=== PATIENT | male | born 1965 ===

== ENCOUNTER 2020-08-05 09:31 | Outpatient (REF) | payer OTHER, SELFPAY | END 2020-08-05 09:32 | disposition home or self-care (01) | LOC: HO.LAB 09:31 | PROVIDERS: Visit Provider Internal Medicine | DX: Z20.822 Contact with and (suspected) exposure to COVID-19 (principal) | CPT/HCPCS: 36415; C9803; U0003 ==

== ENCOUNTER 2020-08-28 09:43 | Outpatient (REF) | payer OTHER, SELFPAY ==
--- NOTE | ~2020-08-28 | XR_ITS ---
EXAMINATION: XR LUMBOSACRAL SPINE CLINICAL INFORMATION: Arthritis COMPARISON: Previous lumbar spine x-ray September 2016 and MRI October 2018 TECHNIQUE: Three views of the lumbosacral spine. FINDINGS: There is partial sacralization of L5 on the left with pseudoarticulation of the left L5 transverse process with the sacrum. Bone alignment is normal. No fracture or dislocation is seen. There is mild degenerative spondylosis at L2-L3 and L3-L4. Disc spaces are normal. There is lower lumbar spine facet arthritis. XR/XR lumbar spine 2-3V IMPRESSION: Partial sacralization of L5 on the left with pseudoarticulation between the left L5 transverse process and the sacrum. Mild degenerative spondylosis and facet arthritis.
[2020-08-28 11:11] LABS: MANUAL DIFF FLAG NO
[2020-08-28 11:25] LABS: Glucose Urine UA NEG (NEG); Leukocyte Esterase Urine NEG (NEG); Nitrite Urine NEG (NEG); PH 6.5 (5.0-8.0); Specific Gravity - Urine 1.025 (1.005-1.025); Urine Blood 3+ (NEG); Urine Ketones NEG (NEG); Urine Protein 1+ MG/DL (NEG-TRACE)
[2020-08-28 11:28] LABS: Appearance Urine CLOUDY; Color Urine YELLOW
[2020-08-28 11:34] LABS: Basophils Absolute Auto 0.1 X10*3/uL (0.0-0.2); Basophils Percent Auto 0.6 % (0-2); Eosinophils Absolute Auto 0.1 X10*3/uL (0.0-0.4); Eosinophils Percent Auto 0.8 % (0-4); Hematocrit 42.3 % (42-52); Hemoglobin 13.6 g/dl (14.0-18.0); Imm Gran Abs Auto 0.08 X10*3/uL (0.00-0.03); Imm Gran Pct Auto 0.8 % (0.0-0.4); Lymphocytes Percent Auto 19.1 % (20-40); Mean Corpuscular HGB Conc 32.2 g/dl (31.0-36.0); Mean Corpuscular Hemoglobin 26.2 pg (27.0-33.0); Mean Corpuscular Volume 81.3 fL (80-98); Mean Platelet Volume 12.1 fL (9.4-12.4); Monocytes Absolute Auto 0.7 X10*3/uL (0.1-1.2); Monocytes Percent Auto 6.6 % (2-11); Neutrophils Absolute Auto 7.7 X10*3/uL (2.0-8.3); Neutrophils Percent Auto 72.1 % (45-73); Platelet Count 265 X10*3/uL (160-400); Red Cell Distribution Width 14.3 % (11.0-16.0); White Blood Count 10.7 X10*3/uL (4.8-10.8)
[2020-08-28 11:42] LABS: Alanine Aminotransferase 18 U/L (0-40); Albumin Level 4.4 g/dL (3.5-5.0); Alkaline Phosphatase 68 U/L (39-117); Anion Gap 10 (12-20); Aspartate Amino Transferase 18 U/L (5-37); Bilirubin Total 0.3 mg/dL (0.0-1.0); Blood Urea Nitrogen 16 mg/dL (9-16); Calcium 8.9 mg/dL (8.4-10.2); Carbon Dioxide 31 mmol/L (22-29); Chloride 104 mmol/L (96-108); Cholesterol 184 mg/dL; Estimated Glomerular Filt Rate > 60; Glucose Fasting 130 mg/dL (60-99); HDL Cholesterol 34 mg/dL; LDL Cholesterol Calculated 124 mg/dl; Potassium 4.1 mmol/L (3.3-5.1); Sodium 141 mmol/L (135-145); Triglycerides 130 mg/dL
[2020-08-28 11:59] LABS: Estimated Average Glucose 117 mg/dL; Hemoglobin A1c % 5.7 %
[2020-08-28 12:06] LABS: WBC Urine 0 /HPF (0-4)
[2020-08-28 12:07] LABS: Mucus Urine 1+ /LPF; RBC Urine TNTC /HPF (0)
[2020-08-28 12:08] LABS: Prostate Specific Antigen Scr 1.41 ng/mL (<0.05-4.0)
== END 2020-08-28 09:44 | disposition home or self-care (01) ==
LOC: HO.HMGCX 09:43
PROVIDERS: PCP Internal Medicine; Visit Provider Internal Medicine
DX: I10 Essential (primary) hypertension (principal); M19.90 Unspecified osteoarthritis, unspecified site; R73.9 Hyperglycemia, unspecified; Z12.5 Encounter for screening for malignant neoplasm of prostate
CPT/HCPCS: 36415; 72100; 80053; 80061; 81001; 83036; 84153; 85025

== ENCOUNTER 2020-09-03 11:59 | Outpatient (REF) | payer OTHER, SELFPAY ==
[2020-09-03 14:16] LABS: Glucose Urine UA NEG (NEG); Leukocyte Esterase Urine NEG (NEG); Nitrite Urine NEG (NEG); PH 6.5 (5.0-8.0); Urine Blood TRACE (NEG); Urine Ketones NEG (NEG); Urine Protein NEG (NEG-TRACE)
[2020-09-03 14:18] LABS: Appearance Urine CLEAR; Color Urine YELLOW
[2020-09-03 14:31] LABS: Mucus Urine 1+ /LPF; Squamous Epithelial Cell Urine TRACE /LPF
== END 2020-09-03 12:00 | disposition home or self-care (01) ==
LOC: HO.HMGCLDS 11:59
PROVIDERS: PCP Internal Medicine; Visit Provider Internal Medicine
DX: R31.9 Hematuria, unspecified (principal)
CPT/HCPCS: 81001

== ENCOUNTER 2020-12-13 08:00 | Outpatient (RCR) | payer OTHER, SELFPAY ==
--- NOTE | 2020-11-08 16:19 | MHC.PT.EP ---
[facility] [place] Office [place] Office [place] Office [address] Abelardo Felix [address] [phone] F: [phone] F: [phone] F: [phone] F: [phone] Physical Therapy Plan of Care Date of Evaluation: Date of Surgery: Diagnosis: BACK DDD Assessment: 55 YO MALE REF TO PT FOR LBP- H/O LUMBAR DISCECTOMY IN 2018- HE WORKS FULL-TIME FOR [employer]. Pt HAS DECR POSTURAL AWARENESS, VALSALVA TENDENCIES W WEAK ABDOM MM, TIGHTNESS IN SHELLI HS/ HIP ROTATORS, (+) PELVIC ASYMM; SIGNIF TISSUE TENSION IN SHELLI PS MM, AND SHELLI L/S PAIN. Pt CURRENTLY DENIES RADICULAR SXS. FUNCTIONAL LIMITATIONS INCLUDE DIFFIC SLEEPING, TRANSITIONAL MVMTS, PROLONGED STANDING, HEAVY LIFTING, AND PROLONGED SITTING. Pt WOULD BENEFIT FROM PT TO ADDRESS THE ABOVE AND MANAGE PAIN AND SXS. Frequency and Duration: The patient will be seen 2x WK X 5 WKS Short Term Goals: DECR Pt'S LBP TO 2-3/10 IN 2 WKS Pt INDEP W SELF-CORRECT POSTURE AND DEMON WFL BODY MECH W 3:3 SIMUL ADLs IN 3 WKS Pt DEMON PROPER TAC EXER W/O VALSALVA STRESS IN 2 WKS Copy Clerk Goals: Pt INDEP W HEP AND SELF-SX MGMT TECHN IN 5 WKS Pt RESUME REG ADLS/ FITNESS WALKING EVIDENT IN IMPROVED OSWESTRY BY 8 POINTS (14/50 AT EVAL) IN 5 WKS Treatment Plan: Modalities to reduce pain, spasms and effusion. Manual therapy to restore motion and function. Therapeutic exercise to improve strength and flexibility. Neuromuscular re-education for posture and balance. Therapeutic activities to return to functional activities of daily living. Electronically signed by: DIMA ARNOLD,PT Please sign and return to therapist. Thank you for your referral.
--- NOTE | 2020-12-13 09:40 | MHC.PT.DC ---
[facility] [place] Office [place] Office [place] Office [address] Abelardo Felix [address] [phone] F: [phone] F: [phone] F: [phone] F: [phone] Physical Therapy Discharge Report Diagnosis: BACK DDD Date of Surgery: Date of Evaluation: 11/08/20 Date of Discharge: 12/13/20 Treatments to Date: 5 Cancellations to Date: 0 No Shows to Date: 2 Discharge Status: Achieved Goals Improved Function Independent with HEP Discharge Summary: Pt MET HIS PT GOALS- ESPEC INDEP W POSTURAL CORRECTION AND IMPROVED BODY MECH W WORK/ ADLs- HE IS INDEP W HEP AND DEMON WFL TRUNK/ HIP ROM AND STRENGTH. OSWESTRY SCORE TODAY AT D/C IS 6/50 (AT EVAL 14/50)- Pt STATES HE IS PAINFREE- READY FOR D/C W HEP Electronically signed by: Sherri Goodson,PT Please sign and return to therapist. Thank you for your referral.
== END 2020-12-13 09:43 | disposition other institution (70) ==
LOC: HO.PTCHIC 08:00
PROVIDERS: PCP Internal Medicine; Visit Provider Internal Medicine
DX: M19.90 Unspecified osteoarthritis, unspecified site (principal)
CPT/HCPCS: 97110; 97140; 97162

== ENCOUNTER → 2021-11-04 13:32 | Outpatient (RCR) | payer OTHER, SELFPAY | END | disposition home or self-care (01) | LOC: HO.PTCHIC 09-16 12:46 | PROVIDERS: PCP Internal Medicine; Visit Provider Internal Medicine | DX: M19.90 Unspecified osteoarthritis, unspecified site (principal) ==

== ENCOUNTER 2021-12-17 11:30 | Emergency (ER) | payer OTHER, SELFPAY ==
[2021-12-17 11:58] VITALS: BP 158/86; PULSE 66; RESP 18; TEMP 36.6; O2SAT 98; BMI 34.1
--- NOTE | 2021-12-17 14:23 | ED_ITS ---
HPI - Back Pain/Injury General Chief Complaint: Back Pain/Injury Stated Complaint: back pain Time Seen by Provider: 12/17/21 14:12 Source: patient History of Present Illness HPI Narrative: Patient presents emergency department for evaluation of diffuse lower back pain. He reports 5 days ago he was bending down in forward putting something to microwave when he stood up straight he felt sudden onset of severe lower back pain. The left side is back is worse than the right. He reports a history of ?disc disease? with a prior back surgery in 2019. Denies any chronic back pain. Pain radiates to the bilateral lower extremities intermittently. It is worse when he is moving from a lying or sitting position after prolonged period of time. Denies recent fevers, chills, burning with micturition, urinary frequency/urgency/hesitancy, bladder or bowel dysfunction, numbness or tingling of the perineum or bilateral legs. Denies any recent surgical procedures, any known immune compromising conditions, personal history of cancer, or IV drug usage. MD elicited complaint: back pain Related Data Previous Rx's Medication Instructions Recorded blood pressure test kit-large #1 ea 09/20/20 amlodipine 10 mg tablet 10 mg PO DAILY #90 tab 02/11/21 cyclobenzaprine 10 mg tablet 10 mg PO Q8H PRN #20 tab 12/17/21 naproxen 500 mg tablet 500 mg PO BID PRN 7 Days #14 tab 12/17/21 Allergies Allergy/AdvReac Type Severity Reaction Status Date / Time acetaminophen [Percocet] Allergy Unknown hives Verified 02/11/21 14:20 oxycodone [Percocet] Allergy Unknown hives Verified 02/11/21 14:20 tramadol Allergy Unknown hives Verified 02/11/21 14:20 Review of Systems Review of Systems: Constitutional: No weight loss, fever, chills, weakness or fatigue. HEENT: No visual loss, blurred vision, double vision. No hearing loss, sneezing, congestion, runny nose or sore throat. Skin: No rash or itching. Cardiovascular: No chest pain, chest pressure or chest discomfort. No palpitations or pedal edema. Respiratory: No shortness of breath, cough or sputum production. Gastrointestinal: No anorexia, nausea, vomiting or diarrhea. No abdominal pain or blood in stool. Genitourinary: No burning micturition. No urinary frequency or incontinence. Neurologic: No headache, dizziness, syncope, unilateral weakness, ataxia, numbness or tingling in the extremities. No change in bowel or bladder control. Endocrine: No reports of sweating. No cold or heat intolerance. No polyuria or polydipsia. Yes all other systems are reviewed and are negative [facility] Past Medical History Attestation statement: The following information was validated with the patient. Source: old records reviewed Medical History Annual physical exam DJD (degenerative joint disease) Hematuria HTN (hypertension) Hyperglycemia Surgical History H/O colonoscopy H/O lumbosacral spine surgery History of dental surgery Family History Family History Father Stroke Diabetes mellitus Mother Diabetes mellitus Overweight History of high blood pressure Brother No problems noted. Brother Cancer Social History Social History Housing: House Alcohol intake: current Alcohol intake frequency: holidays/special occasions only Patient Tobacco Use Status: Current everyday Tobacco user Tobacco use type: Cigarette Cigarettes Per Day: 5 Years Smoked: long time e-Cigarette/Vaping Use: Never Used Advance Directives: No Advance Directives Information Provided: No Current occupational status: employed Physical Exam Vital Signs: Vital Signs: Last Vital Signs Temp 97.6 F 12/17/21 15:50 Pulse 54 12/17/21 15:50 Resp 16 12/17/21 15:50 BP 153/77 H 12/17/21 15:50 Pulse Ox 98 12/17/21 15:50 BMI result Body Mass Index 34.1 Vital signs have been reviewed as normal and appeared to be correct. Blood pressure normal.? Heart rate normal.? Respiration rate normal. Temperature normal.? Oxygen saturation normal. Appearance: Alert.?Oriented to person, place and time. No acute distress.?Normal affect. Eyes: Pupils equal, round and reactive to light.? ENT: Pharynx normal.?? Neck: Normal inspection.? Neck supple.?? CVS: Heart sounds normal. Normal heart rate and rhythm.? Pulses normal; bilateral radial pulses 2+, bilateral posterior tibial/dorsalis pedis pulses 2+.? Respiratory: No respiratory distress.? Lung sounds clear to auscultation bilaterally?? Abdomen: Soft and non-tender. Normoactive bowel sounds. No pulsatile mass.?? Skin: Skin warm and dry.? Normal skin color.? Normal skin turgor.?? Extremities: No lower extremity edema.? No calf ttp? Back: + mild paraspinal muscular tenderness from lumbar region to coccyx. No CVA tenderness. No midline spinal tenderness, step-off's, or deformity. Full ROM intact in bilateral lower extremities. Straight leg test positive on right; St raight leg test positive on left. No rashes, lesions, areas of induration or fluctuance, or signs of infection noted. Neuro: Moves all extremities spontaneously. 5/5 strength in hip extension/flexion, abduction, adduction. Sensation to light touch intact bilaterally. Patellar and Achilles reflex 2+ bilaterally. No ataxia, gait normal and steady. No focal neuro deficits. Course Course Course Narrative: Patient is a 56-year-old male with past medical history of hypertension and prior back surgery presenting for evaluation of acute and sudden onset of diffuse lower back pain. Based on history and physical exam pain is most consistent with muscular pain, although cannot completely exclude herniated disc. On neurological exam there are no deficits. Not consistent with spinal fracture, spinal infection, epidural abscess, AAA, or dissection. No high risk past medical history including incontinence, fever, immunosuppression, recent surgery or lumbar puncture, coagulopathy, significant trauma, recent unintentional weight loss, pulsatile mass, history of cancer, history of TB, history of IV drug use that would warrant MRI or CT. Not consistent with pyelonephritis, urinary tract infection, renal calculi, appendicitis, diverticulitis. On exam no concern for cauda equina syndrome. Patient received Toradol 60 mg IM, and cyclobenzaprine 10 mg p.o. with improvement in his pain. No imaging is currently indicated at this time. Plan for discharge home with prescription for naproxen and cyclobenzaprine, advised follow-up with primary care provider, discussed reasons return back to the emergency department. and patient agreed with plan discharged home in stable condition. Discharge Plan Discharge Clinical Impression: Lumbar radiculopathy Patient Disposition: Home, Self-Care Instructions: Lumbar Radiculopathy (ED), Lower Back Exercises (ED) Additional Instructions: Please take naproxen twice daily with food for pain. Do not take additional [id number] medications such as ibuprofen/Motrin, Aleve, or aspirin while taking this medication. If this medication does not help your pain, you may trial cyclobenzaprine, this is a muscle relaxer, it may make you drowsy, please do not drive, operate machinery, drink alcohol for 8 hours after taking this medication. Engage in lower back exercises and gentle stretching. Please contact your primary care provider to schedule a follow-up visit within 1 week. Return to the emergency department any new or worsening symptoms or concerns. Prescriptions: New naproxen 500 mg tablet 500 mg PO BID PRN (Reason: pain) 7 Days Qty: 14 0RF cyclobenzaprine 10 mg tablet 10 mg PO Q8H PRN (Reason: muscle spasm) Qty: 20 0RF No Action (DME) blood pressure test kit-large Kit See Rx Instructions .ROUTE .MEDSUPPLY Qty: 1 0RF Rx Instructions: As directed amlodipine 10 mg tablet 10 mg PO DAILY Qty: 90 3RF Referrals: Bridgette Coburn MD [Primary Care Provider] - 1 week
[2021-12-17] MEDS: Cyclobenzaprine HCl 10 MG TABLET PO (14:32)
[2021-12-17] MEDS: Ketorolac Tromethamine 60 MG/2 ML VIAL IM (14:33)
[2021-12-17 15:50] VITALS: BP 153/77; PULSE 54; RESP 16; TEMP 36.4; O2SAT 98
== END 2021-12-17 16:13 | disposition home or self-care (01) ==
PROVIDERS: Emergency Provider Emergency Medicine; PCP Internal Medicine
DX: M54.16 Radiculopathy, lumbar region (principal); I10 Essential (primary) hypertension
CPT/HCPCS: 96372; 99282; 99283; 99284; J1885

== ENCOUNTER 2022-04-08 12:23 | Outpatient (REF) | payer OTHER, SELFPAY ==
[2022-04-08 14:06] LABS: MANUAL DIFF FLAG NO
[2022-04-08 14:13] LABS: Basophils Absolute Auto 0.1 X10*3/uL (0.0-0.2); Basophils Percent Auto 0.5 % (0-2); Eosinophils Absolute Auto 0.1 X10*3/uL (0.0-0.4); Hematocrit 43.9 % (42.0-52.0); Hemoglobin 14.5 g/dl (14.0-18.0); Imm Gran Abs Auto 0.05 X10*3/uL (0.00-0.03); Imm Gran Pct Auto 0.4 % (0.0-0.4); Lymphocytes Absolute Auto 2.9 X10*3/uL (1.2-4.9); Lymphocytes Percent Auto 23.1 % (20-40); Mean Corpuscular Hemoglobin 26.7 pg (27.0-33.0); Mean Corpuscular Volume 80.7 fL (80.0-98.0); Monocytes Absolute Auto 0.8 X10*3/uL (0.1-1.2); Monocytes Percent Auto 6.5 % (2-11); Neutrophils Absolute Auto 8.5 x10*3/uL (2.0-8.3); Neutrophils Percent Auto 68.5 % (45-73); Platelet Count 273 X10*3/uL (160-400); Red Blood Count 5.44 X10*6/uL (4.60-5.80); Red Cell Distribution Width 14.3 % (11.0-16.0); White Blood Count 12.5 X10*3/uL (4.8-10.8)
[2022-04-08 14:25] LABS: Alanine Aminotransferase 20 U/L (0-40); Albumin Level 4.7 g/dL (3.5-5.0); Alkaline Phosphatase 79 U/L (39-117); Anion Gap 15 (12-20); Aspartate Amino Transferase 19 U/L (5-37); Bilirubin Total 0.4 mg/dL (0.0-1.0); Blood Urea Nitrogen 15 mg/dL (9-16); Calcium 9.7 mg/dL (8.4-10.2); Carbon Dioxide 29 mmol/L (22-29); Chloride 102 mmol/L (96-108); Estimated Glomerular Filt Rate > 60; Glucose Random 115 mg/dL (60-115); Potassium 4.8 mmol/L (3.3-5.1); Sodium 141 mmol/L (135-145); Total Protein 7.4 g/dL (6.5-8.0)
== END 2022-04-08 12:24 | disposition home or self-care (01) ==
LOC: HO.HMGCLDS 12:23
PROVIDERS: PCP Internal Medicine; Visit Provider Physician Assistant
DX: R31.9 Hematuria, unspecified (principal)
CPT/HCPCS: 36415; 80053; 85025

== ENCOUNTER 2022-06-25 10:11 | Outpatient (REF) | payer OTHER, SELFPAY ==
[2022-06-25 17:04] LABS: Urine Cytology See Pathology rpt
== END 2022-06-25 10:12 | disposition home or self-care (01) ==
LOC: HO.LAB 10:11
PROVIDERS: Visit Provider Nurse Practitioner Family
DX: R31.29 Other microscopic hematuria (principal)
CPT/HCPCS: 88112; 99202

== ENCOUNTER 2022-07-10 09:42 | Outpatient (REF) | payer OTHER, SELFPAY ==
[2022-07-10] MEDS: iohexoL 350 MG/ML 100 ML INFUS..BTL IV (10:43)
[2022-07-10 11:25] LABS: Blood Urea Nitrogen 11 mg/dL (9-16); Estimated Glomerular Filt Rate > 60
== END 2022-07-10 09:43 | disposition home or self-care (01) ==
LOC: HO.CT 09:42
PROVIDERS: PCP Internal Medicine; Visit Provider Nurse Practitioner Family
DX: R31.29 Other microscopic hematuria (principal); R39.15 Urgency of urination
CPT/HCPCS: 36415; 74178; 82565; 84520; Q9967

== ENCOUNTER 2022-07-18 12:04 | Emergency (ER) | payer OTHER, SELFPAY ==
--- NOTE | ~2022-07-18 | XR_ITS ---
EXAMINATION: XR chest 2V CLINICAL INFORMATION: Reason for Exam SOB, cough COMPARISON: July 2012 TECHNIQUE: XR chest 2V Lungs and Cara: Newly developed opacity likely infiltrate/subsegmental atelectasis right lower lobe. Pleura: Normal. Costophrenic angles are sharp. No pneumothorax. Heart: The heart is normal in size. Mediastinum: The mediastinum is within normal limits.. Bones: Skeletal structures included are normal for patient's age. XR/XR chest 2V IMPRESSION: * Newly developed opacity likely infiltrate/subsegmental atelectasis right lower lobe. Clinical correlation and follow-up recommended to ensure complete clearance. * No pleural effusion.
--- NOTE | 2022-07-18 12:58 | ED.GENADULT ---
HPI - General Adult General Chief complaint: Upper Respiratory Symptoms <ARTHUR Millan - Last Filed: 07/18/22 13:05> Stated complaint: difficulty breathing <ARTHUR Millan - Last Filed: 07/18/22 13:05> Time Seen by Provider: 07/18/22 13:49 <ARTHUR Millan - Last Filed: 07/18/22 13:05> Source: patient <ARTHUR Millan - Last Filed: 07/18/22 13:05> Mode of arrival: ambulatory <ARTHUR Millan - Last Filed: 07/18/22 13:05> Limitations: no limitations <ARTHUR Millan - Last Filed: 07/18/22 13:05> History of Present Illness HPI narrative: 57yoM c PMHx of HTN, DJD, borderline diabetic with presenting to the ER with complaints of subjective fevers, chills, fatigue, malaise, nasal congestion/rhinorrhea, sore throat, productive cough with yellow/green colored sputum that started on Wednesday worse today. Reports that he works at the [employer] although does not know of any sick contacts. Denies any dizziness, neck pain/stiffness, chest pain, orthopnea, palpitations, paresthesias, nausea/vomiting/diarrhea constipation, black or bloody stools, abdominal pain, flank pain, dysuria, hematuria, rashes, lower extremity edema or calf tenderness or any other symptoms complaints or concerns at this time. <ARTHUR Covington - Last Filed: 07/18/22 15:45> MD complaint: URI complaints <ARTHUR Covington - Last Filed: 07/18/22 15:45> Onset (ago): day(s) (4) <ARTHUR Covington - Last Filed: 07/18/22 15:45> Related Data Home medications: Previous Rx's Medication Instructions Recorded blood pressure test kit-large #1 ea 09/20/20 amlodipine 10 mg tablet 10 mg PO DAILY #90 tabs 04/17/22 albuterol sulfate 90 mcg/actuation 1 inh inhalation QID PRN shortness 07/18/22 aerosol inhaler of breath or wheezing #8.5 grams azithromycin 250 mg tablet See Rx Instructions PO .COMPLEX #6 07/18/22 tabs benzonatate 100 mg capsule 100 mg PO BID PRN cough #14 caps 07/18/22 cefuroxime axetil 500 mg tablet 500 mg PO BID 10 days #20 tabs 07/18/22 <ARTHUR Millan - Last Filed: 07/18/22 13:05> Allergies/adverse reactions: Allergies Allergy/AdvReac Type Severity Reaction Status Date / Time acetaminophen [Percocet] Allergy Intermediate hives Verified 07/18/22 13:01 oxycodone [Percocet] Allergy Intermediate hives Verified 07/18/22 13:01 tramadol Allergy Intermediate hives Verified 07/18/22 13:01 <ARTHUR Millan - Last Filed: 07/18/22 13:05> Review of Systems Review of Systems: Constitutional : + subjective fevers/chills/fatigue/malaise, No Weight loss, No Night Sweats ENT/Mouth : + sore throat/nasal congestion/rhinorrhea, No Hearing loss, No Ear Pain, No Sinus Pain, No Hoarseness, No Swallowing Difficulty Eyes: No Eye Pain, No Swelling, No Redness, No Foreign Body, No Discharge, No Vision Changes Cardiovascular : No Chest Pain, + SOB, No Dyspnea on Exertion, No Orthopnea, No Edema, No Palpitations Respiratory : + Cough, + Sputum, + Wheezing, No Smoke Exposure, + Dyspnea Gastrointestinal : No Nausea, No Vomiting, No Diarrhea, No Constipation, No abdominal Pain, No Hematochezia, No Melena Genitourinary : no irregular bleeding, No Dysuria, No Urinary Frequency, No Hematuria, No Urinary Incontinence, No Urgency, No Flank Pain, No Urinary Flow Changes, No Hesitancy Musculoskeletal : No joint pain, + Myalgias, No Joint Swelling Skin : No Skin Lesions, No rash Neuro : No Weakness, No Numbness, No Paresthesias, No Loss of Consciousness, No Dizziness, No Headache Psych : No Anxiety/Panic, No Depression, No SI/HI/AH/VH, No Social Issues, Heme/Lymph: No Bruising, No Bleeding,No Lymphadenopathy Endocrine : No Polyuria, No Polydipsia, No Temperature Intolerance <ARTHUR Covington Last Filed: 07/18/22 15:45> Yes all other systems are reviewed and are negative <ARTHUR Covington Last Filed: 07/18/22 15:45> PMFSH Past Medical History Attestation statement: The following information was validated with the patient. <ARTHUR Covington - Last Filed: 07/18/22 15:45> Source: old records reviewed, obtained from family and nursing notes reviewed <ARTHUR Covington - Last Filed: 07/18/22 15:45> Medical History: Medical History Annual physical exam DJD (degenerative joint disease) Hematuria HTN (hypertension) Hyperglycemia Microscopic hematuria <ATRHUR Millan - Last Filed: 07/18/22 13:05> Surgical History: Surgical History H/O colonoscopy H/O lumbosacral spine surgery History of dental surgery <ARTHUR Millan - Last Filed: 07/18/22 13:05> Family History Family History: Family History Father Stroke Diabetes mellitus Mother Diabetes mellitus Overweight History of high blood pressure Brother No problems noted. Brother Cancer <ARTHUR Millan - Last Filed: 07/18/22 13:05> Social History Social History: Social History Housing: House Alcohol intake: current Alcohol intake frequency: holidays/special occasions only Patient Tobacco Use Status: Current everyday Tobacco user Tobacco use type: Cigarette Cigarettes Per Day: 5 Years Smoked: long time e-Cigarette/Vaping Use: Never Used Advance Directives: Yes Advance Directives Information Provided: Yes Advance Directives on File: No Current occupational status: employed Cognitive needs: No Hearing needs: No Vision needs: Yes <ARTHUR Millan - Last Filed: 07/18/22 13:05> Physical Exam ED Vital Signs: Vital Signs - 24 hr 07/18/22 13:01 07/18/22 14:36 07/18/22 15:28 Temperature 97.9 F 100.6 F H Pulse Rate 84 86 95 Respiratory Rate 18 16 16 Blood Pressure 160/73 H 152/80 H Pulse Oximetry 94 94 Oxygen Delivery Method Room Air Room Air 07/18/22 15:30 Temperature Pulse Rate Respiratory Rate Blood Pressure Pulse Oximetry 93 Oxygen Delivery Method BMI result Body Mass Index 34.1 <ARTHUR Millan - Last Filed: 07/18/22 13:05> Vital Signs - 24 hr 07/18/22 13:01 07/18/22 14:36 07/18/22 15:28 Temperature 97.9 F 100.6 F H Pulse Rate 84 86 95 Respiratory Rate 18 16 16 Blood Pressure 160/73 H 152/80 H Pulse Oximetry 94 94 Oxygen Delivery Method Room Air Room Air 07/18/22 15:30 Temperature Pulse Rate Respiratory Rate Blood Pressure Pulse Oximetry 93 Oxygen Delivery Method BMI result Body Mass Index 34.1 vital signs have been reviewed as normal and appeared to be correct. Blood pressure 160/73. Heart rate normal. Respiration rate normal. Temperature normal. Oxygen saturation normal. <ARTHUR Covington - Last Filed: 07/18/22 15:45> Appearance: Alert. Oriented X3. In acute respiratory distress. Head: Normal external exam. Normocephalic. Atraumatic. Eyes: PERRLA. EOMI. Conjunctiva and sclera normal. Eyelids normal. ENT: EAC normal. TM's Normal. Posterior pharynx/tonsils erythematous with exudate noted bilaterally. Uvula midline. Moist mucous membranes. No lesions/ulcerations or masses noted on the tongue. Normal voice. No trismus noted. No drooling noted. No muffled voice noted. Neck: Normal inspection. Neck supple. FROM. No adenopathy. Thyroid Normal. No tracheal deviation noted. No crepitus is noted. No meningeal signs. No neck mass noted. No signs of trauma noted. CVS: Normal heart rate and rhythm. Heart sound normal. Pulses normal throughout. No murmurs/rales/gallops. Respiratory: In acute respiratory distress with decreased breath sounds and mild expiratory wheezing. Questioning some rhonchi. No rales noted. No crepitus is noted. Chest is nontender. No signs of trauma. No accessory muscle use is noted. Pain with inspiration. Abdomen: Soft and nontender. Bowel sounds normal in all 4 quadrants. No distention noted. No organomegaly noted. No visible injury noted. Back: No CVA tenderness. Full range of motion noted. Nontender. No signs of trauma. Patient neuro intact bilaterally and distally on all 4 extremities. Patient's reflexes intact bilaterally and distally on all 4 extremities. No rashes/lesion/induration/fluctuance or signs of infection noted. Skin: Skin warm and dry. Normal skin color. Normal skin turgor. No rashes/lesions/lacerations noted. Extremities: No lower extremity edema. No calf tenderness is noted. Extremities exhibit normal range of motion and nontender. Neuro: Oriented X 3. No motor deficit. No sensory deficit. Reflexes normal. Normal steady gait. No focal neuro deficits noted. CN's II-XII intact bilaterally? Vascular: + radial pulses/+ 2 distal pedal pulses/+2 dorsalis pedis b/l. Normal cap refill. No cyanosis noted to upper extremity nails and lower extremity toes nails. <ARTHUR Covington - Last Filed: 07/18/22 15:45> Course Course Course Narrative: RME performed by Yesica Garcia PA-C. Patient is a 57 year old male presenting to the emergency department with a cough and shortness of breath. COVID/RSV/Influenza swab and CXR ordered. Patient placed back into the waiting room pending results and bed availability. <ARTHUR Millan - Last Filed: 07/18/22 13:05> Reevaluation(s) Reevaluation #1: 57yoM c PMHx of HTN, DJD, borderline diabetic with presenting to the ER with complaints of subjective fevers, chills, fatigue, malaise, nasal congestion/rhinorrhea, sore throat, productive cough with yellow/green colored sputum that started on Wednesday worse today. Pending COVID/RSV/flu and chest x-ray from waiting room. Plan: Will swab for strep and re-evaluate. <ARTHUR Covington - Last Filed: 07/18/22 15:45> Time: 13:50 <ARTHUR Covington Last Filed: 07/18/22 15:45> Reevaluation #2: Patient negative for COVID/RSV/flu. Patient negative for strep. Chest x-ray revealed pneumonia otherwise no other acute processes. We did ambulate the patient he stood at 93% on room air. I did try to admit the patient and the hospitalist came to admit the patient although patient reports that he would rather go home try p.o. antibiotics and if he worsens he will return to be admitted. Therefore at this time will DC home with p.o. antibiotics as patient is refusing admission instructions return if any new or worsening symptoms. Patient with significant other at bedside understand agree this plan. <ARTHUR Covington - Last Filed: 07/18/22 15:45> Time: 15:44 <ARTHUR Covington - Last Filed: 07/18/22 15:45> Medications Administered Discontinued Medications Generic Name Dose Route Start Last Admin Trade Name Freq PRN Reason Stop Dose Admin Albuterol Sulfate 2.5 mg/ 0 mg 07/18/22 14:22 07/18/22 14:34 Albuterol/Ipratropium 3 ml INHALE 07/18/22 14:23 5 each ONCE ONE Administration Dexamethasone 10 mg 07/18/22 13:56 07/18/22 14:06 Dexamethasone 2 Mg Tablet PO 07/18/22 13:57 10 mg ONCE ONE Administration Guaifenesin 10 ml 07/18/22 13:57 07/18/22 14:05 Guaifenesin 200 Mg/10 Ml 10 Ml Liquid PO 07/18/22 13:58 10 ml ONCE ONE Administration Ibuprofen 800 mg 07/18/22 15:26 07/18/22 15:34 Ibuprofen 800 Mg Tablet PO 07/18/22 15:27 800 mg ONCE ONE Administration <ARTHUR Millan - Last Filed: 07/18/22 13:05> Medications Administered Discontinued Medications Generic Name Dose Route Start Last Admin Trade Name Freq PRN Reason Stop Dose Admin Albuterol Sulfate 2.5 mg/ 0 mg 07/18/22 14:22 07/18/22 14:34 Albuterol/Ipratropium 3 ml INHALE 07/18/22 14:23 5 each ONCE ONE Administration Dexamethasone 10 mg 07/18/22 13:56 07/18/22 14:06 Dexamethasone 2 Mg Tablet PO 07/18/22 13:57 10 mg ONCE ONE Administration Guaifenesin 10 ml 07/18/22 13:57 07/18/22 14:05 Guaifenesin 200 Mg/10 Ml 10 Ml Liquid PO 07/18/22 13:58 10 ml ONCE ONE Administration Ibuprofen 800 mg 07/18/22 15:26 07/18/22 15:34 Ibuprofen 800 Mg Tablet PO 07/18/22 15:27 800 mg ONCE ONE Administration <ARTHUR Covington - Last Filed: 07/18/22 15:45> Medical Decision Making Consult Healthcare Provider Management of the patient was discussed with: Hospitalist <ARTHUR Covington Last Filed: 07/18/22 15:45> Lab Data MDM Lab Attestation statement: I reviewed the patient's lab results. <ARTHUR Covington Last Filed: 07/18/22 15:45> Labs: Lab Results 07/18/22 07/18/22 Range/Units 14:03 14:03 Influenza Type A (PCR) NEGATIVE (Negative) Influenza Type B (PCR) NEGATIVE (Negative) RSV RNA Qual (PCR) NEGATIVE (Negative) SARS-CoV-2 RNA (RT-PCR) NEGATIVE (Negative) S. pyogenes GrpA GRACIA Negative (Negative) <ARTHUR Millan - Last Filed: 07/18/22 13:05> Lab Results 07/18/22 07/18/22 Range/Units 14:03 14:03 Influenza Type A (PCR) NEGATIVE (Negative) Influenza Type B (PCR) NEGATIVE (Negative) RSV RNA Qual (PCR) NEGATIVE (Negative) SARS-CoV-2 RNA (RT-PCR) NEGATIVE (Negative) S. pyogenes GrpA GRACIA Negative (Negative) <ARTHUR Covington Last Filed: 07/18/22 15:45> Independent Interpretation I performed an independent interpretation of an: Plain X-Ray <ARTHUR Covington Last Filed: 07/18/22 15:45> Interpretation: Chest x-ray revealed TECHNIQUE: XR chest 2V Lungs and Cara: Newly developed opacity likely infiltrate/subsegmental atelectasis right lower lobe. Pleura: Normal. Costophrenic angles are sharp. No pneumothorax. Heart: The heart is normal in size. Mediastinum: The mediastinum is within normal limits.. Bones: Skeletal structures included are normal for patient's age. XR/XR chest 2V IMPRESSION: ? *? Newly developed opacity likely infiltrate/subsegmental atelectasis right lower lobe. Clinical correlation and follow-up recommended to ensure complete clearance. ? *? No pleural effusion. <ARTHUR Covington Last Filed: 07/18/22 15:45> Radiology Impression Discussion of test interpretation with radiology: I have reviewed the radiologist's reading. <ARTHUR Covington - Last Filed: 07/18/22 15:45> Independent Historian Clinical information obtained from an independent historian. History obtained from or confirmed by: Spouse <ARTHUR Covington - Last Filed: 07/18/22 15:45> External Record Review External record reviewed: Inpatient record, Office record, Outpatient record, Prior outpatient labs, Prior outpatient radiology, Primary care record and Outside ED record <ARTHUR Covington - Last Filed: 07/18/22 15:45> Prescription Management I considered prescription management with: Antibiotic <ARTHUR Covington - Last Filed: 07/18/22 15:45> Chronic Conditions Patient?s care impacted by: Hypertension <ARTHUR Covington - Last Filed: 07/18/22 15:45> Critical Care Time Critical Care Time Critical Care Time: Yes <ARTHUR Covington - Last Filed: 07/18/22 15:45> Total Critical Care Time: 60 <ARTHUR Covington - Last Filed: 07/18/22 15:45> Attestation: I personally attest to this time spent taking care of the patient <ARTHUR Covington - Last Filed: 07/18/22 15:45> Discharge Plan Discharge Clinical Impression: Pneumonia <ARTHUR Millan - Last Filed: 07/18/22 13:05> Patient Disposition: Home, Self-Care <ARTHUR Millan - Last Filed: 07/18/22 13:05> Instructions: Pneumonia (ED) <ARTHUR Millan - Last Filed: 07/18/22 13:05> Prescriptions: New azithromycin 250 mg tablet See Rx Instructions .ROUTE .COMPLEX Qty: 6 0RF Rx Instructions: For 250 mg dose pack: take 500 mg today (day 1), then 250 mg for 4 days (days 2-5) cefuroxime axetil 500 mg tablet 500 mg PO BID 10 Days Qty: 20 0RF albuterol sulfate 90 mcg/actuation HFA aerosol inhaler 1 inh inhalation QID PRN (Reason: shortness of breath or wheezing) Qty: 8.5 0RF benzonatate 100 mg capsule 100 mg PO BID PRN (Reason: cough) Qty: 14 0RF No Action (DME) blood pressure test kit-large Kit See Rx Instructions .ROUTE .MEDSUPPLY Qty: 1 0RF Rx Instructions: As directed amlodipine 10 mg tablet 10 mg PO DAILY Qty: 90 3RF <ARTHUR Millan - Last Filed: 07/18/22 13:05> Referrals: Physician,Unknown J [Primary Care Provider] - 3 days (Your PCP for re-evaluation) <ARTHUR Millan - Last Filed: 07/18/22 13:05> Stand Alone Forms: Work/School Release <ARTHUR Millan - Last Filed: 07/18/22 13:05>
[2022-07-18 13:01] VITALS: BP 160/73; PULSE 84; RESP 18; TEMP 36.6; O2SAT 94; BMI 34.1
[2022-07-18] MEDS: guaiFENesin 200 MG/10 ML 10 ML LIQUID PO (14:05)
[2022-07-18] MEDS: dexAMETHasone 2 MG TABLET 10 MG PO (14:06)
[2022-07-18] MEDS: Albuterol Sulfate 2.5 MG, Albuterol/Iprat 2.5/0.5MG 3 ML 3 ML INHALE (14:34)
[2022-07-18 14:36] VITALS: PULSE 86; RESP 16; O2SAT 95
[2022-07-18 14:41] LABS: IDNOW Serial# 6674DD1D; Strep A Nucleic Acid Negative (Negative)
[2022-07-18 14:48] LABS: Influenza A PCR NEGATIVE (Negative); Influenza B PCR NEGATIVE (Negative); Resp Syncy Virus RNA Qual PCR NEGATIVE (Negative); SARS COV2 PCR INHOUSE NEGATIVE (Negative)
[2022-07-18 15:28] VITALS: BP 152/80; PULSE 95; RESP 16; TEMP 38.1; O2SAT 94
[2022-07-18 15:30] VITALS: O2SAT 93
[2022-07-18] MEDS: Ibuprofen 800 MG TABLET PO (15:34)
--- NOTE | 2022-07-18 15:37 | PHA.MEDREC ---
Pharmacy Consult ? Medication Reconciliation Pharmacy has completed the medication reconciliation.
[2022-07-18] MEDS: Azithromycin 500 MG TABLET PO (16:03)
== END 2022-07-18 16:17 | disposition home or self-care (01) ==
PROVIDERS: Physician Assistant Medical; Emergency Provider Emergency Medicine
DX: J18.9 Pneumonia, unspecified organism (principal); R50.9 Fever, unspecified; Z20.828 Contact with and (suspected) exposure to other viral communicable diseases; I10 Essential (primary) hypertension; E11.9 Type 2 diabetes mellitus without complications; F17.210 Nicotine dependence, cigarettes, uncomplicated
CPT/HCPCS: 0241U; 36415; 71046; 87651; 94640; 99284; J8540

== ENCOUNTER → 2022-08-14 08:54 | Outpatient (BNVA) | payer OTHER, SELFPAY | PROVIDERS: PCP Internal Medicine; Visit Provider Urology | DX: N40.1 Benign prostatic hyperplasia with lower urinary tract symptoms (principal); N13.8 Other obstructive and reflux uropathy; N21.0 Calculus in bladder | CPT/HCPCS: 52000; 99212 ==

== ENCOUNTER 2022-08-18 10:15 | Inpatient (IN) | payer OTHER, SELFPAY ==
[2022-08-18] VITALS (10 sets, daily range): BP systolic 126–188; BP diastolic 66–95; PULSE 73–91; RESP 16–25; TEMP 36.4–37.7; O2SAT 91–99; BMI 31.8; BMI 32.8
--- NOTE | 2022-08-18 11:36 | ED_ITS ---
HPI - Male Genitourinary General Chief complaint: Urogenital-Male <ARTHUR Hernandez - Last Filed: 08/24/22 11:23> Stated complaint: Frequent urination/Vomiting <ARTHUR Hernandez - Last Filed: 08/24/22 11:23> Time Seen by Provider: 08/18/22 13:11 <ARTHUR Hernandez - Last Filed: 08/24/22 11:23> Source: patient and old records reviewed <Bill King MD - Last Filed: 08/18/22 14:44> History of Present Illness HPI Narrative: Patient comes in complaining of severe polyuria, dysuria. He states he was vomiting last night. Fevers and chills as well. He had a recent cystoscopy secondary to workup for BPH as well as a bladder stone. He states he has been having symptoms with urinary frequency since February. Recently much worse. He states he cannot go more than 5 minutes without using a urinal. No prior history of nausea vomiting until last night. No diarrhea. Secondary complaints of malaise and headache. <Bill King MD - Last Filed: 08/18/22 14:44> Related Data Home medications: Home Medications Medication Instructions Recorded Confirmed multivitamin 1 tab PO DAILY 08/18/22 08/18/22 Previous Rx's Medication Instructions Recorded blood pressure test kit-large #1 ea 09/20/20 amlodipine 10 mg tablet 10 mg PO DAILY #90 tabs 04/17/22 albuterol sulfate 90 mcg/actuation 1 inh inhalation QID PRN shortness 07/18/22 aerosol inhaler of breath or wheezing #8.5 grams alcohol swabs (Alcohol Pads) 1 pad topical Q6H #200 ea 08/23/22 blood sugar diagnostic (FreeStyle #100 ea 08/23/22 Lite Strips) blood-glucose meter (FreeStyle #1 08/23/22 Lite Meter kit) cefuroxime axetil 500 mg tablet 500 mg PO BID #6 tabs 08/23/22 insulin glargine 100 unit/mL (3 15 unit (0.15 mL) subcut BEDTIME 08/23/22 mL) subcutaneous pen (Lantus #15 mL Solostar U-100 Insulin) insulin lispro 100 unit/mL 1 sliding scale dose subcut QD-TID 08/23/22 subcutaneous pen (Humalog KwikPen #15 mL (U-100) Insulin) lancets 17 gauge #200 ea 08/23/22 metformin 1,000 mg tablet 1,000 mg PO BIDWM #60 tabs 08/23/22 pen needle, diabetic 32 gauge x #100 ea 08/23/2207/22 <ARTHUR Hernandez - Last Filed: 08/24/22 11:23> Allergies/Adverse reactions: Allergies Allergy/AdvReac Type Severity Reaction Status Date / Time acetaminophen [Percocet] Allergy Intermediate hives Verified 07/18/22 13:01 oxycodone [Percocet] Allergy Intermediate hives Verified 07/18/22 13:01 tramadol Allergy Intermediate hives Verified 07/18/22 13:01 <ARTHUR Hernandez - Last Filed: 08/24/22 11:23> Review of Systems Constitutional: Comments: Fevers and chills as described <Bill King MD - Last Filed: 08/18/22 14:44> Cardiovascular: Comments: No chest pain <Bill King MD - Last Filed: 08/18/22 14:44> [facility] Past Medical History Medical History: Medical History Annual physical exam DJD (degenerative joint disease) Hematuria HTN (hypertension) Hyperglycemia Microscopic hematuria <ARTHUR Hernandez - Last Filed: 08/24/22 11:23> Surgical History: Surgical History H/O colonoscopy H/O lumbosacral spine surgery History of dental surgery <ARTHUR Hernandez - Last Filed: 08/24/22 11:23> Family History Family History: Family History Father Stroke Diabetes mellitus Mother Diabetes mellitus Overweight History of high blood pressure Brother No problems noted. Brother Cancer <ARTHUR Hernandez - Last Filed: 08/24/22 11:23> Social History Social History: Social History Household Members: Spouse Housing: House Do you presently have visiting nurse or other home services: No Alcohol intake: current Alcohol intake frequency: holidays/special occasions only Patient Tobacco Use Status: Former Tobacco user Quit Date: 07/19/2022 Tobacco use type: Cigarette Cigarettes Per Day: 5 Years Smoked: long time e-Cigarette/Vaping Use: Never Used Advance Directives Date on File: 08/18/22 service: No Current occupational status: employed Cognitive needs: No Hearing needs: No Vision needs: Yes <ARTHUR Hernandez - Last Filed: 08/24/22 11:23> Physical Exam Vital Signs: Vital Signs: Last Vital Signs Temp 97.2 F 08/23/22 11:22 Pulse 65 08/23/22 11:22 Resp 08/23/22 11:22 BP 129/69 08/23/22 11:22 Pulse Ox 98 08/23/22 11:22 O2 Del Method 08/23/22 11:22 BMI result Body Mass Index 32.8 <ARTHUR Hernandez - Last Filed: 08/24/22 11:23> Vital Signs: Last Vital Signs Temp 97.2 F 08/23/22 11:22 Pulse 65 08/23/22 11:22 Resp 08/23/22 11:22 BP 129/69 08/23/22 11:22 Pulse Ox 98 08/23/22 11:22 O2 Del Method 08/23/22 11:22 BMI result Body Mass Index 32.8 <Bill King MD - Last Filed: 08/18/22 14:44> Const: Other: Awake and alert. Appears uncomfortable. He is restless. <Bill King MD - Last Filed: 08/18/22 14:44> Resp: Other: Clear and equal bilaterally <Bill King MD - Last Filed: 08/18/22 14:44> Cardio: Other: Regular rate and rhythm without murmurs rubs or gallops <Bill King MD - Last Filed: 08/18/22 14:44> GI: Other: Soft nontender nondistended <Bill King MD - Last Filed: 08/18/22 14:44> Skin: Other: Warm pink and dry without rash <Bill King MD - Last Filed: 08/18/22 14:44> Neuro: Other: Nonfocal neuro exam <Bill King MD - Last Filed: 08/18/22 14:44> Course Course Course Narrative: RME: 57 yold male with BPH presents to the ED dyusria and increase urinary frequency. Seen by Dr. Nicole of [facility] this past wednesday. UA and Labs ordered. patient hypertensive with no neuro symptoms. History of hypertension. patient is not not toxic appearing. 1:20pm. labs called and stated patient labs glucose is 1409. patient is in [place]. patient brought in to the ED immeidatley. Fluids ordered. Dr. King is seeing patient <ARTHUR Hernandez - Last Filed: 08/24/22 11:23> Medications Administered Discontinued Medications Generic Name Dose Route Start Last Admin Trade Name Freq PRN Reason Stop Dose Admin Amlodipine Besylate 10 mg 08/18/22 20:15 08/23/22 08:28 Amlodipine Besylate 10 Mg Tablet PO 10 mg DAILY DONOVAN Administration Protocol Enoxaparin Sodium 40 mg 08/20/22 13:00 08/22/22 12:05 Enoxaparin Sodium 40 Mg/0.4 Ml Syringe SUBCUT 40 mg Q24H DONOVAN Administration Heparin Sodium (Porcine) 5,000 unit 08/18/22 15:00 08/20/22 10:43 Heparin Sodium,Porcine 5,000 Unit/Ml Vial SUBCUT 5,000 unit Q8H DONOVAN Administration Sodium Chloride 1,000 mls @ 999 mls/hr 08/18/22 13:06 08/18/22 13:35 Ns IV 08/18/22 14:06 Not Given .Q1H1M STA Sodium Chloride 1,000 mls @ 999 mls/hr 08/18/22 13:07 08/18/22 13:35 Ns IV 08/18/22 14:07 Not Given .Q1H1M STA Sodium Chloride 1,000 mls @ 999 mls/hr 08/18/22 13:15 08/18/22 13:35 Ns IV 08/18/22 14:15 Not Given .Q1H1M STA Ceftriaxone Sodium 1 gm/ 50 mls @ 100 mls/hr 08/18/22 13:23 08/18/22 14:54 Sodium Chloride IV 08/18/22 13:52 Infused ONCE ONE Infusion Sodium Chloride 2,857.62 mls @ 2,857.62 mls/hr 08/18/22 13:23 08/18/22 14:54 Ns 30 ml/kg infuse over 1 hr (2857.62 ml) 08/18/22 14:22 Infused IV Infusion .Q1H STA Insulin Human Regular 100 unit in 100 mls @ 0 mls/hr 08/18/22 13:30 08/19/22 05:46 Myxredlin IVCONT Infused .Q0M DONOVAN Titration Protocol Per Protocol Lactated Ringer's 1,000 mls @ 150 mls/hr 08/18/22 14:45 08/19/22 01:51 Lr IVCONT Infused .Q6H40M DONOVAN Infusion Ceftriaxone Sodium 1 gm/ 50 mls @ 100 mls/hr 08/19/22 13:00 08/23/22 12:43 Sodium Chloride IV Infused Q24H DONOVAN Infusion Dextrose/Lactated Ringer's 1,000 mls @ 150 mls/hr 08/19/22 02:00 08/19/22 05:44 D5lr IVCONT Infused .Q6H40M DONOVAN Infusion Potassium Phosphate 15 mmol in 250 mls @ 62.5 mls/hr 08/19/22 05:29 08/19/22 10:57 Kphos IV 08/19/22 09:28 Infused ONCE ONE Infusion Insulin Glargine 15 unit 08/19/22 05:29 08/19/22 05:53 Insulin Glargine,Hum.Rec.Anlog 100 Unit/Ml 10 Ml Vial SUBCUT 08/19/22 05:30 15 unit ONCE ONE Administration Insulin Glargine 15 unit 08/20/22 09:00 08/21/22 10:55 Insulin Glargine,Hum.Rec.Anlog 100 Unit/Ml 10 Ml Vial SUBCUT 15 unit DAILY DONOVAN Administration Insulin Glargine 20 unit 08/22/22 09:00 08/23/22 08:26 Insulin Glargine,Hum.Rec.Anlog 100 Unit/Ml 10 Ml Vial SUBCUT 20 unit DAILY DONOVAN Administration Insulin Glargine 20 unit 08/21/22 16:10 08/22/22 23:15 Insulin Glargine,Hum.Rec.Anlog 100 Unit/Ml 10 Ml Vial SUBCUT 20 unit BEDTIME DONOVAN Administration Insulin Human Lispro 0 unit 08/19/22 11:30 08/23/22 12:10 Insulin Lispro 100 Unit/Ml 3 Ml Vial SUBCUT 4 unit QIDACHS [facility] Administration Protocol Insulin Human Lispro 5 unit 08/20/22 16:30 08/21/22 14:54 Insulin Lispro 100 Unit/Ml 3 Ml Vial SUBCUT 5 unit QIDACHS [facility] Administration Insulin Human Lispro 7 unit 08/21/22 16:30 08/23/22 08:27 Insulin Lispro 100 Unit/Ml 3 Ml Vial SUBCUT 3 unit QIDACHS DONOVAN Administration Insulin Human Lispro 3 unit 08/23/22 11:30 08/23/22 12:10 Insulin Lispro 100 Unit/Ml 3 Ml Vial SUBCUT 3 unit QIDACHS [facility] Administration Insulin Human Regular 10 unit 08/18/22 13:25 08/18/22 13:53 Insulin Regular, Human 100 Unit/Ml 3 Ml Vial 0.1 unit/kg (10 unit) 08/18/22 13:26 10 unit IVPUSH Administration ONCE ONE Metformin HCl 1,000 mg 08/22/22 11:05 08/23/22 08:28 Metformin Hcl 1,000 Mg Tablet PO 1,000 mg BIDWM DONOVAN Administration <ARTHUR Hernandez - Last Filed: 08/24/22 11:23> Medications Administered Discontinued Medications Generic Name Dose Route Start Last Admin Trade Name Freq PRN Reason Stop Dose Admin Amlodipine Besylate 10 mg 08/18/22 20:15 08/23/22 08:28 Amlodipine Besylate 10 Mg Tablet PO 10 mg DAILY DONOVAN Administration Protocol Enoxaparin Sodium 40 mg 08/20/22 13:00 08/22/22 12:05 Enoxaparin Sodium 40 Mg/0.4 Ml Syringe SUBCUT 40 mg Q24H DONOVAN Administration Heparin Sodium (Porcine) 5,000 unit 08/18/22 15:00 08/20/22 10:43 Heparin Sodium,Porcine 5,000 Unit/Ml Vial SUBCUT 5,000 unit Q8H DONOVAN Administration Sodium Chloride 1,000 mls @ 999 mls/hr 08/18/22 13:06 08/18/22 13:35 Ns IV 08/18/22 14:06 Not Given .Q1H1M STA Sodium Chloride 1,000 mls @ 999 mls/hr 08/18/22 13:07 08/18/22 13:35 Ns IV 08/18/22 14:07 Not Given .Q1H1M STA Sodium Chloride 1,000 mls @ 999 mls/hr 08/18/22 13:15 08/18/22 13:35 Ns IV 08/18/22 14:15 Not Given .Q1H1M STA Ceftriaxone Sodium 1 gm/ 50 mls @ 100 mls/hr 08/18/22 13:23 08/18/22 14:54 Sodium Chloride IV 08/18/22 13:52 Infused ONCE ONE Infusion Sodium Chloride 2,857.62 mls @ 2,857.62 mls/hr 08/18/22 13:23 08/18/22 14:54 Ns 30 ml/kg infuse over 1 hr (2857.62 ml) 08/18/22 14:22 Infused IV Infusion .Q1H STA Insulin Human Regular 100 unit in 100 mls @ 0 mls/hr 08/18/22 13:30 08/19/22 05:46 Myxredlin IVCONT Infused .Q0M DONOVAN Titration Protocol Per Protocol Lactated Ringer's 1,000 mls @ 150 mls/hr 08/18/22 14:45 08/19/22 01:51 Lr IVCONT Infused .Q6H40M DONOVAN Infusion Ceftriaxone Sodium 1 gm/ 50 mls @ 100 mls/hr 08/19/22 13:00 08/23/22 12:43 Sodium Chloride IV Infused Q24H DONOVAN Infusion Dextrose/Lactated Ringer's 1,000 mls @ 150 mls/hr 08/19/22 02:00 08/19/22 05:44 D5lr IVCONT Infused .Q6H40M DONOVAN Infusion Potassium Phosphate 15 mmol in 250 mls @ 62.5 mls/hr 08/19/22 05:29 08/19/22 10:57 Kphos IV 08/19/22 09:28 Infused ONCE ONE Infusion Insulin Glargine 15 unit 08/19/22 05:29 08/19/22 05:53 Insulin Glargine,Hum.Rec.Anlog 100 Unit/Ml 10 Ml Vial SUBCUT 08/19/22 05:30 15 unit ONCE ONE Administration Insulin Glargine 15 unit 08/20/22 09:00 08/21/22 10:55 Insulin Glargine,Hum.Rec.Anlog 100 Unit/Ml 10 Ml Vial SUBCUT 15 unit DAILY DONOVAN Administration Insulin Glargine 20 unit 08/22/22 09:00 08/23/22 08:26 Insulin Glargine,Hum.Rec.Anlog 100 Unit/Ml 10 Ml Vial SUBCUT 20 unit DAILY DONOVAN Administration Insulin Glargine 20 unit 08/21/22 16:10 08/22/22 23:15 Insulin Glargine,Hum.Rec.Anlog 100 Unit/Ml 10 Ml Vial SUBCUT 20 unit BEDTIME DONOVAN Administration Insulin Human Lispro 0 unit 08/19/22 11:30 08/23/22 12:10 Insulin Lispro 100 Unit/Ml 3 Ml Vial SUBCUT 4 unit QIDACHS DONOVAN Administration Protocol Insulin Human Lispro 5 unit 08/20/22 16:30 08/21/22 14:54 Insulin Lispro 100 Unit/Ml 3 Ml Vial SUBCUT 5 unit QIDACHS DONOVAN Administration Insulin Human Lispro 7 unit 08/21/22 16:30 08/23/22 08:27 Insulin Lispro 100 Unit/Ml 3 Ml Vial SUBCUT 3 unit QIDACHS DONOVAN Administration Insulin Human Lispro 3 unit 08/23/22 11:30 08/23/22 12:10 Insulin Lispro 100 Unit/Ml 3 Ml Vial SUBCUT 3 unit QIDACHS DONOVAN Administration Insulin Human Regular 10 unit 08/18/22 13:25 08/18/22 13:53 Insulin Regular, Human 100 Unit/Ml 3 Ml Vial 0.1 unit/kg (10 unit) 08/18/22 13:26 10 unit IVPUSH Administration ONCE ONE Metformin HCl 1,000 mg 08/22/22 11:05 08/23/22 08:28 Metformin Hcl 1,000 Mg Tablet PO 1,000 mg BIDWM DONOVAN Administration <Bill King MD - Last Filed: 08/18/22 14:44> Medical Decision Making Medical Decision Making MDM Narrative: Patient with urinary frequency in the setting of recent cystoscopy. Rule out pyelonephritis or urinary tract infections 13:54. Workup with multiple considerable abnormalities. Urinalysis consistent with urinary tract [place] [address] also consistent with infection Chemistries, however, remarkable for glucose of 1409. Bicarb is 20 with a sodium of 128 consistent with pseudo hyponatremia. Potassium is 5.3 with new onset renal failure with a creatinine of 2.24 with a baseline of 1.04. Acetone mildly positive. Patient is extremely hyperglycemic without a history of diabetes and is not on diabetic medications. Likely precipitated by acute infection. He is hypertensive and not tachycardic. He is possibly septic, however given a renal failure. Treated with 30 a cc per kilos fluid and broad-spectrum antibiotics, ceftriaxone. Awaiting lactic acid and blood cultures. Also given IV insulin bolus at 10 units. Started on insulin drip. Will consult the ICU. Ndiaye catheter Consult to Urology secondary to recent cystoscopy. <Bill Knig MD - Last Filed: 08/18/22 14:44> Lab Data Result Diagrams: 08/18/22 11:54 08/18/22 11:54 <ARTHUR Hernandez - Last Filed: 08/24/22 11:23> Labs: Lab Results 08/18/22 08/18/22 08/18/22 Range/Units 11:47 11:54 11:54 WBC 17.1 H (4.8-10.8) X10*3/uL RBC 5.24 (4.60-5.80) X10*6/uL Hgb 13.6 L (14.0-18.0) g/dl Hct 44.0 (42.0-52.0) % MCV 84.0 (80.0-98.0) fL MCH 26.0 L (27.0-33.0) pg MCHC 30.9 L (31.0-36.0) g/dl RDW 14.5 (11.0-16.0) % Plt Count 258 (160-400) X10*3/uL MPV 12.0 (9.4-12.4) fL Immature Gran % (Auto) 0.6 H (0.0-0.4) % Neut % (Auto) 91.4 H (45-73) % Lymph % (Auto) 4.2 L (20-40) % Ocean % (Auto) 3.6 (2-11) % Eos % (Auto) 0.0 (0-4) % Baso % (Auto) 0.2 (0-2) % Lymph # (Auto) 0.7 L (1.2-4.9) X10*3/uL [place] # (Auto) 0.6 (0.1-1.2) X10*3/uL Eos # (Auto) 0.0 (0.0-0.4) X10*3/uL Baso # (Auto) 0.0 (0.0-0.2) X10*3/uL Abs Immat Gran (auto) 0.11 H (0.00-0.03) X10*3/uL Absolute Neuts (auto) 15.6 H (2.0-8.3) x10*3/uL Absolute Nucleated RBC 0.000 (0.0-0.012) X10*3/uL Nucleated RBC % (auto) 0.0 (0.0-0.2) /100WBC Smear Tech's Comments VERIFIED PT 13.3 H (10.0-13.1) SEC INR 1.2 H (0.9-1.1) APTT 26.7 (26.0-36.4) SEC Sodium (135-145) mmol/L Potassium (3.3-5.1) mmol/L Chloride (96-108) mmol/L Carbon Dioxide (22-29) mmol/L Anion Gap (12-20) BUN (9-16) mg/dL Creatinine (0.5-1.4) mg/dL Estim Creat Clear Calc Estimated GFR POC Glucose (60-115) mg/dL Random Glucose (60-115) mg/dL Lactic Acid (0.5-2.0) mmol/L Calcium (8.4-10.2) mg/dL Total Bilirubin (0.0-1.0) mg/dL AST (5-37) U/L ALT (0-40) U/L Alkaline Phosphatase (39-117) U/L Total Protein (6.5-8.0) g/dL Albumin (3.5-5.0) g/dL Urine Color Yellow Urine Appearance Clear Urine pH 5.5 (5.0-9.0) Ur Specific [place] >= 1.030 H (1.005-1.025) Urine Protein Negative (Neg-Trace) mg/dL Urine Glucose (UA) >=1000 H (Negative) mg/dL Urine Ketones 15 (Negative) mg/dL Urine Blood Trace H (Negative) Urine Nitrite Negative (Negative) Ur Leukocyte Esterase Negative (Negative) Urine RBC 0-2 (0-2) /HPF Urine WBC 11-20 H (0-5) /HPF Urine WBC Clumps Present Ur Squamous Epith Cells 0-2 (0-2) /HPF Urine Bacteria None Seen (None Seen) Hyaline Casts 3-5 (0-2) /LPF Acetone, Qual (Negative) 08/18/22 08/18/22 08/18/22 Range/Units 11:54 13:12 13:42 WBC (4.8-10.8) X10*3/uL RBC (4.60-5.80) X10*6/uL Hgb (14.0-18.0) g/dl Hct (42.0-52.0) % MCV (80.0-98.0) fL MCH (27.0-33.0) pg MCHC (31.0-36.0) g/dl RDW (11.0-16.0) % Plt Count (160-400) X10*3/uL MPV (9.4-12.4) fL Immature Gran % (Auto) (0.0-0.4) % Neut % (Auto) (45-73) % Lymph % (Auto) (20-40) % Ocean % (Auto) (2-11) % Eos % (Auto) (0-4) % Baso % (Auto) (0-2) % Lymph # (Auto) (1.2-4.9) X10*3/uL [place] # (Auto) (0.1-1.2) X10*3/uL Eos # (Auto) (0.0-0.4) X10*3/uL Baso # (Auto) (0.0-0.2) X10*3/uL Abs Immat Gran (auto) (0.00-0.03) X10*3/uL Absolute Neuts (auto) (2.0-8.3) x10*3/uL Absolute Nucleated RBC (0.0-0.012) X10*3/uL Nucleated RBC % (auto) (0.0-0.2) /100WBC Smear Tech's Comments PT (10.0-13.1) SEC INR (0.9-1.1) APTT (26.0-36.4) SEC Sodium 128 L (135-145) mmol/L Potassium 5.3 H (3.3-5.1) mmol/L Chloride 86 L (96-108) mmol/L Carbon Dioxide 20 L (22-29) mmol/L Anion Gap 27 H (12-20) BUN 26 H (9-16) mg/dL Creatinine 2.24 H (0.5-1.4) mg/dL Estim Creat Clear Calc 39.5 Estimated GFR 30 POC Glucose > 600 H* (60-115) mg/dL Random Glucose 1409 H* (60-115) mg/dL Lactic Acid 2.4 H* (0.5-2.0) mmol/L Calcium 9.8 (8.4-10.2) mg/dL Total Bilirubin 0.6 (0.0-1.0) mg/dL AST 13 (5-37) U/L ALT 23 (0-40) U/L Alkaline Phosphatase 158 H (39-117) U/L Total Protein 7.5 (6.5-8.0) g/dL Albumin 4.3 (3.5-5.0) g/dL Urine Color Urine Appearance Urine pH (5.0-9.0) Ur Specific [place] (1.005-1.025) Urine Protein (Neg-Trace) mg/dL Urine Glucose (UA) (Negative) mg/dL Urine Ketones (Negative) mg/dL Urine Blood (Negative) Urine Nitrite (Negative) Ur Leukocyte Esterase (Negative) Urine RBC (0-2) /HPF Urine WBC (0-5) /HPF Urine WBC Clumps Ur Squamous Epith Cells (0-2) /HPF Urine Bacteria (None Seen) Hyaline Casts (0-2) /LPF Acetone, Qual Small H (Negative) <ARTHUR Hernandez - Last Filed: 08/24/22 11:23> Lab Results 08/18/22 08/18/22 08/18/22 Range/Units 11:47 11:54 11:54 WBC 17.1 H (4.8-10.8) X10*3/uL RBC 5.24 (4.60-5.80) X10*6/uL Hgb 13.6 L (14.0-18.0) g/dl Hct 44.0 (42.0-52.0) % MCV 84.0 (80.0-98.0) fL MCH 26.0 L (27.0-33.0) pg MCHC 30.9 L (31.0-36.0) g/dl RDW 14.5 (11.0-16.0) % Plt Count 258 (160-400) X10*3/uL MPV 12.0 (9.4-12.4) fL Immature Gran % (Auto) 0.6 H (0.0-0.4) % Neut % (Auto) 91.4 H (45-73) % Lymph % (Auto) 4.2 L (20-40) % Ocean % (Auto) 3.6 (2-11) % Eos % (Auto) 0.0 (0-4) % Baso % (Auto) 0.2 (0-2) % Lymph # (Auto) 0.7 L (1.2-4.9) X10*3/uL Ocean # (Auto) 0.6 (0.1-1.2) X10*3/uL Eos # (Auto) 0.0 (0.0-0.4) X10*3/uL Baso # (Auto) 0.0 (0.0-0.2) X10*3/uL Abs Immat Gran (auto) 0.11 H (0.00-0.03) X10*3/uL Absolute Neuts (auto) 15.6 H (2.0-8.3) x10*3/uL Absolute Nucleated RBC 0.000 (0.0-0.012) X10*3/uL Nucleated RBC % (auto) 0.0 (0.0-0.2) /100WBC Smear Tech's Comments VERIFIED PT 13.3 H (10.0-13.1) SEC INR 1.2 H (0.9-1.1) APTT 26.7 (26.0-36.4) SEC Sodium (135-145) mmol/L Potassium (3.3-5.1) mmol/L Chloride (96-108) mmol/L Carbon Dioxide (22-29) mmol/L Anion Gap (12-20) BUN (9-16) mg/dL Creatinine (0.5-1.4) mg/dL Estim Creat Clear Calc Estimated GFR POC Glucose (60-115) mg/dL Random Glucose (60-115) mg/dL Lactic Acid (0.5-2.0) mmol/L Calcium (8.4-10.2) mg/dL Total Bilirubin (0.0-1.0) mg/dL AST (5-37) U/L ALT (0-40) U/L Alkaline Phosphatase (39-117) U/L Total Protein (6.5-8.0) g/dL Albumin (3.5-5.0) g/dL Urine Color Yellow Urine Appearance Clear Urine pH 5.5 (5.0-9.0) Ur Specific [place] >= 1.030 H (1.005-1.025) Urine Protein Negative (Neg-Trace) mg/dL Urine Glucose (UA) >=1000 H (Negative) mg/dL Urine Ketones 15 (Negative) mg/dL Urine Blood Trace H (Negative) Urine Nitrite Negative (Negative) Ur Leukocyte Esterase Negative (Negative) Urine RBC 0-2 (0-2) /HPF Urine WBC 11-20 H (0-5) /HPF Urine WBC Clumps Present Ur Squamous Epith Cells 0-2 (0-2) /HPF Urine Bacteria None Seen (None Seen) Hyaline Casts 3-5 (0-2) /LPF Acetone, Qual (Negative) 08/18/22 08/18/22 08/18/22 Range/Units 11:54 13:12 13:42 WBC (4.8-10.8) X10*3/uL RBC (4.60-5.80) X10*6/uL Hgb (14.0-18.0) g/dl Hct (42.0-52.0) % MCV (80.0-98.0) fL MCH (27.0-33.0) pg MCHC (31.0-36.0) g/dl RDW (11.0-16.0) % Plt Count (160-400) X10*3/uL MPV (9.4-12.4) fL Immature Gran % (Auto) (0.0-0.4) % Neut % (Auto) (45-73) % Lymph % (Auto) (20-40) % Ocean % (Auto) (2-11) % Eos % (Auto) (0-4) % Baso % (Auto) (0-2) % Lymph # (Auto) (1.2-4.9) X10*3/uL [place] # (Auto) (0.1-1.2) X10*3/uL Eos # (Auto) (0.0-0.4) X10*3/uL Baso # (Auto) (0.0-0.2) X10*3/uL Abs Immat Gran (auto) (0.00-0.03) X10*3/uL Absolute Neuts (auto) (2.0-8.3) x10*3/uL Absolute Nucleated RBC (0.0-0.012) X10*3/uL Nucleated RBC % (auto) (0.0-0.2) /100WBC Smear Tech's Comments PT (10.0-13.1) SEC INR (0.9-1.1) APTT (26.0-36.4) SEC Sodium 128 L (135-145) mmol/L Potassium 5.3 H (3.3-5.1) mmol/L Chloride 86 L (96-108) mmol/L Carbon Dioxide 20 L (22-29) mmol/L Anion Gap 27 H (12-20) BUN 26 H (9-16) mg/dL Creatinine 2.24 H (0.5-1.4) mg/dL Estim Creat Clear Calc 39.5 Estimated GFR 30 POC Glucose > 600 H* (60-115) mg/dL Random Glucose 1409 H* (60-115) mg/dL Lactic Acid 2.4 H* (0.5-2.0) mmol/L Calcium 9.8 (8.4-10.2) mg/dL Total Bilirubin 0.6 (0.0-1.0) mg/dL AST 13 (5-37) U/L ALT 23 (0-40) U/L Alkaline Phosphatase 158 H (39-117) U/L Total Protein 7.5 (6.5-8.0) g/dL Albumin 4.3 (3.5-5.0) g/dL Urine Color Urine Appearance Urine pH (5.0-9.0) Ur Specific [place] (1.005-1.025) Urine Protein (Neg-Trace) mg/dL Urine Glucose (UA) (Negative) mg/dL Urine Ketones (Negative) mg/dL Urine Blood (Negative) Urine Nitrite (Negative) Ur Leukocyte Esterase (Negative) Urine RBC (0-2) /HPF Urine WBC (0-5) /HPF Urine WBC Clumps Ur Squamous Epith Cells (0-2) /HPF Urine Bacteria (None Seen) Hyaline Casts (0-2) /LPF Acetone, Qual Small H (Negative) <Bill King MD - Last Filed: 08/18/22 14:44> Critical Care Time Critical Care Time Critical Care Time: Yes <Bill King MD - Last Filed: 08/18/22 14:44> Total Critical Care Time: 110 <Bill King MD - Last Filed: 08/18/22 14:44> Attestation: New onset diabetes, diabetic ketoacidosis, urinary tract infection, renal failure. <Bill King MD - Last Filed: 08/18/22 14:44> Discharge Plan Discharge Clinical Impression: Urinary tract infection, Hyperglycemia, DKA, type 2, Acute hyperkalemia, Acute renal failure <ARTHUR Hernandez - Last Filed: 08/24/22 11:23> Patient Disposition: Admitted As Inpatient <ARTHUR Hernandez - Last Filed: 08/24/22 11:23> Interventions: Admission Worksheet (ED) Last Done: 08/18/22 17:14 <ARTHUR Hernandez - Last Filed: 08/24/22 11:23> Discharge Date/Time: 08/18/22 17:14 <ARTHUR Hernandez - Last Filed: 08/24/22 11:23>
[2022-08-18 12:06] LABS: Appearance Urine Clear; Color Urine Yellow; Glucose Urine UA >=1000 mg/dL (Negative); Leukocyte Esterase Urine Negative (Negative); Nitrite Urine Negative (Negative); PH 5.5 (5.0-9.0); Specific Gravity - Urine >= 1.030 (1.005-1.025); UMIC TRIGGER UACC YES; Urine Blood Trace (Negative); Urine Ketones 15 mg/dL (Negative); Urine Protein Negative (Neg-Trace)
[2022-08-18 12:06] LABS: Basophils Percent Auto 0.2 % (0-2); Hemoglobin 13.6 g/dl (14.0-18.0); Imm Gran Abs Auto 0.11 X10*3/uL (0.00-0.03); Imm Gran Pct Auto 0.6 % (0.0-0.4); Lymphocytes Absolute Auto 0.7 X10*3/uL (1.2-4.9); Lymphocytes Percent Auto 4.2 % (20-40); MANUAL DIFF FLAG SCAN; Mean Corpuscular HGB Conc 30.9 g/dl (31.0-36.0); Monocytes Absolute Auto 0.6 X10*3/uL (0.1-1.2); Monocytes Percent Auto 3.6 % (2-11); Neutrophils Absolute Auto 15.6 x10*3/uL (2.0-8.3); Neutrophils Percent Auto 91.4 % (45-73); Platelet Count 258 X10*3/uL (160-400); Red Blood Count 5.24 X10*6/uL (4.60-5.80); Red Cell Distribution Width 14.5 % (11.0-16.0); SCAN SMEAR FLAG 1; White Blood Count 17.1 X10*3/uL (4.8-10.8)
[2022-08-18 12:09] LABS: INTERNATIONAL NORM RATIO 1.2 (0.9-1.1); Prothrombin Time 13.3 SEC (10.0-13.1)
[2022-08-18 12:12] LABS: Partial Thromboplastin Time 26.7 SEC (26.0-36.4)
[2022-08-18 12:17] LABS: Bacteria Urine None Seen (None Seen); RBC Urine 0-2 /HPF (0-2); Squamous Epithelial Cell Urine 0-2 /HPF (0-2); UACC Culture Trigger YES; WBC Clumps Urine Present
[2022-08-18 12:37] LABS: SLIDE REVIEW VERIFIED
[2022-08-18 12:46] LABS: Alanine Aminotransferase 23 U/L (0-40); Albumin Level 4.3 g/dL (3.5-5.0); Alkaline Phosphatase 158 U/L (39-117); Aspartate Amino Transferase 13 U/L (5-37); Bilirubin Total 0.6 mg/dL (0.0-1.0); Blood Urea Nitrogen 26 mg/dL (9-16); Calcium 9.8 mg/dL (8.4-10.2); Creatinine Clr Calc Pharmacy 39.5; Estimated Glomerular Filt Rate 30; Total Protein 7.5 g/dL (6.5-8.0)
[2022-08-18 13:16] LABS: Glucose, Whole Blood > 600 mg/dL (60-115)
[2022-08-18 13:22] LABS: Anion Gap 27 (12-20); Carbon Dioxide 20 mmol/L (22-29); Chloride 86 mmol/L (96-108); Potassium 5.3 mmol/L (3.3-5.1); Sodium 128 mmol/L (135-145)
[2022-08-18 13:25] LABS: Glucose Random 1409 mg/dL (60-115)
[2022-08-18] MEDS: 0.9 % Sodium Chloride 2,857.62 ML 2857.62 ML IV (13:34)
[2022-08-18 13:36] LABS: Acetone, serum QL Small (Negative)
[2022-08-18] MEDS: cefTRIAXone sodium 1 GM in 0.9 % Sodium Chloride 50 ML IV (13:48)
[2022-08-18] MEDS: Insulin Regular, Human 100 UNIT/ML 3 ML VIAL 10 UNIT IVPUSH (13:53)
[2022-08-18] MEDS: Insulin Regular/NS 100 UNIT/100 ML PLAST..BAG IVCONT (14:22)
[2022-08-18 14:31] LABS: Lactic Acid 2.4 mmol/L (0.5-2.0)
--- NOTE | 2022-08-18 15:05 | P.HPCC_ITS ---
History of Present Illness Date of Service: 08/18/22 Chief Complaint: Dysuria, nausea 57-year-old gentleman with underlying history of diabetes mellitus, BPH, recent cystoscopy for obstructive uropathy presents today complaining 3 day history dysuria, increased urinary frequency. On evaluation glucose of 1400, positive for ketones, leukocytosis, acute kidney injury and hyperkalemia. Patient started on insulin drip and IV fluids and admitted to intensive care unit. Review of Systems Constitutional: Constitutional: Denies daytime sleepiness, Denies excessive sweating, Reports fatigue, Denies fever(s), Denies lethargy, Denies malaise, Denies night sweats, Denies snoring and Denies weight loss Eyes: Eyes: Denies blurry vision and Denies itchy eyes ENT: Denies nasal congestion, Denies post nasal drip, Denies sinus pain, Denies sinus pressure and Denies other ( Thrush) Cardiovascular: Cardiovascular: Denies chest pain, Denies pedal edema, Denies dyspnea, Denies orthopnea and Denies paroxysmal nocturnal dyspnea Respiratory: Respiratory: Denies cough, Denies hemoptysis, Denies excessive phlegm production, Denies dyspnea, Denies snoring and Denies wheezing Gastrointestinal: Gastrointestinal: Denies abdominal pain, Denies heartburn and Reports nausea Genitourinary: Genitourinary: Reports urinary frequency and Reports urinary urgency Musculoskeletal: Musculoskeletal: Denies myalgias, Denies arthralgias and Denies joint swelling Integumentary/Breasts: Skin/Breast: Denies rash Neurologic: Denies memory loss and Denies seizure-like activity Psychiatric: Psychiatric: Denies abnormal sleep pattern, Denies anxiety and Denies memory loss Endocrine: Endocrine: Denies excessive sweating, Reports fatigue and Denies heat intolerance Hematologic/Lymphatic: Hematologic/Lymphatic: Denies easy bruising Allergic/Immunologic: Allergic/Immunologic: Denies itchy eyes, Denies seasonal rhinorrhea and Denies wheezing PMFSH Past Medical History Medical History Annual physical exam DJD (degenerative joint disease) Hematuria HTN (hypertension) Hyperglycemia Microscopic hematuria Family History Family History Father Stroke Diabetes mellitus Mother Diabetes mellitus Overweight History of high blood pressure Brother No problems noted. Brother Cancer Surgical History Surgical History H/O colonoscopy H/O lumbosacral spine surgery History of dental surgery Social History Social History Housing: House Alcohol intake: current Alcohol intake frequency: holidays/special occasions on ly Patient Tobacco Use Status: Current everyday Tobacco user Tobacco use type: Cigarette Cigarettes Per Day: 5 Years Smoked: long time e-Cigarette/Vaping Use: Never Used Advance Directives: Yes Advance Directives on File: No Current occupational status: employed Cognitive needs: No Hearing needs: No Vision needs: Yes Meds Allergies Allergy/AdvReac Type Severity Reaction Status Date / Time acetaminophen [Percocet] Allergy Intermediate hives Verified 07/18/22 13:01 oxycodone [Percocet] Allergy Intermediate hives Verified 07/18/22 13:01 tramadol Allergy Intermediate hives Verified 07/18/22 13:01 Active Medications: Current Medications Heparin Sodium (Porcine) (Heparin Sodium,Porcine 5,000 Unit/Ml Vial) 5,000 unit SUBCUT Q8H [facility] Insulin Human Regular (Myxredlin) 100 unit in 100 mls @ 0 mls/hr IVCONT .Q0M [facility]; Protocol Last Admin: 08/18/22 14:22 Dose: 5 unit/hr, 5 mls/hr Lactated Ringer's (Lr) 1,000 mls @ 150 mls/hr IVCONT .Q6H40M [facility] Ceftriaxone Sodium 1 gm/ (Sodium Chloride) 50 mls @ 100 mls/hr IV Q24H [facility] Physical Exam Vital Signs: Vital Signs: Last Vital Signs Temp 97.5 F 08/18/22 11:32 Pulse 88 08/18/22 14:15 Resp 20 08/18/22 14:15 BP 147/75 H 08/18/22 14:15 Pulse Ox 96 08/18/22 14:15 O2 Del Method 08/18/22 14:15 BMI result Body Mass Index 32.8 Const: General: no acute distress, alert and awake Nutritional Appearance: not obese Orientation/consciousness: Other orientation findings ( oriented) HEENT: Head: Yes atraumatic Mouth: no other ( thrush) Throat: No postnasal drainage Eyes: General: appearance normal, both eyes and all related structures Sclerae: sclerae normal EOM: EOMs intact bilaterally Neck: Neck: Yes no lymphadenopathy, Yes trachea midline and Yes supple Lymphatic: no lymphadenopathy noted Resp: Effort & Inspection: normal respiratory effort and no respiratory distress Auscultation: clear to auscultation bilaterally Cardio: Rate: regular rate Rhythm: regular rhythm Heart sounds: no gallops, no murmurs and no rubs GI: Palpation (GI): Soft to palpation and Other GI palpation findings present ( Nontender) Auscultation: normal bowel sounds Skin: General skin exam: other ( warm) Rashes: no rashes Extrem: General: Yes no pedal edema, No clubbing and No cyanosis Results Labs 08/18/22 11:54 08/18/22 11:54 Labs: Laboratory Results - last 24 hr 08/18/22 08/18/22 08/18/22 11:47 11:54 11:54 MCV 84.0 MCH 26.0 L MCHC 30.9 L RDW 14.5 Plt Count 258 MPV 12.0 Immature Gran % (Auto) 0.6 H Neut % (Auto) 91.4 H Lymph % (Auto) 4.2 L [place] % (Auto) 3.6 Eos % (Auto) 0.0 Baso % (Auto) 0.2 Lymph # (Auto) 0.7 L [place] # (Auto) 0.6 Eos # (Auto) 0.0 Baso # (Auto) 0.0 Abs Immat Gran (auto) 0.11 H Absolute Neuts (auto) 15.6 H Absolute Nucleated RBC 0.000 Nucleated RBC % (auto) 0.0 Smear Tech's Comments VERIFIED PT 13.3 H INR 1.2 H APTT 26.7 Anion Gap Estim Creat Clear Calc Estimated GFR POC Glucose Random Glucose Lactic Acid Calcium Total Bilirubin AST ALT Alkaline Phosphatase Total Protein Albumin Urine Color Yellow Urine Appearance Clear Urine pH 5.5 Ur Specific [place] >= 1.030 H Urine Protein Negative Urine Glucose (UA) >=1000 H Urine Ketones 15 Urine Blood Trace H Urine Nitrite Negative Ur Leukocyte Esterase Negative Urine RBC 0-2 Urine WBC 11-20 H Urine WBC Clumps Present Ur Squamous Epith Cells 0-2 Urine Bacteria None Seen Hyaline Casts 3-5 Acetone, Qual 08/18/22 08/18/22 08/18/22 11:54 13:12 13:42 MCV MCH MCHC RDW Plt Count MPV Immature Gran % (Auto) Neut % (Auto) Lymph % (Auto) [place] % (Auto) Eos % (Auto) Baso % (Auto) Lymph # (Auto) [place] # (Auto) Eos # (Auto) Baso # (Auto) Abs Immat Gran (auto) Absolute Neuts (auto) Absolute Nucleated RBC Nucleated RBC % (auto) Smear Tech's Comments PT INR APTT Anion Gap 27 H Estim Creat Clear Calc 39.5 Estimated GFR 30 POC Glucose > 600 H* Random Glucose 1409 H* Lactic Acid 2.4 H* Calcium 9.8 Total Bilirubin 0.6 AST 13 ALT 23 Alkaline Phosphatase 158 H Total Protein 7.5 Albumin 4.3 Urine Color Urine Appearance Urine pH Ur Specific [place] Urine Protein Urine Glucose (UA) Urine Ketones Urine Blood Urine Nitrite Ur Leukocyte Esterase Urine RBC Urine WBC Urine WBC Clumps Ur Squamous Epith Cells Urine Bacteria Hyaline Casts Acetone, Qual Small H Assessment and Plan (1) DKA, type 2: Status: Acute (2) BPH w urinary obs/LUTS: Status: Acute Plan Assessment: 57-year-old gentleman with underlying diabetes recent cystoscopy secondary to obstructive uropathy admitted with diabetic ketoacidosis likely secondary to urinary tract infection Plan: Neuro: No acute issues. Cardiac: No acute issues. Pulmonary: No acute issues. Renal: acute kidney injury, hyperkalemia likely secondary to diabetic ketoacidosis and obstructive uropathy. Continue IV fluids. Continue to monitor renal indices and urine output. Endo: Diabetic ketoacidosis, on the background of known diabetes mellitus likely provoked by urinary tract infection. Continue to titrate off insulin drip as tolerated. GI: No acute issues. ID: Cultures are pending. Likely underlying unit tract infection. Empirically covered with ceftriaxone. Heme/Onc: No acute issues. Psych: No acute issues. Miscellaneous: No acute issues. Prophylaxis: heparin Diet: nothing by mouth Time Spent With Patient Time: Total time managing care of this patient today ____ minutes.
[2022-08-18 15:17] LABS: Glucose, Whole Blood > 600 mg/dL (60-115)
[2022-08-18 15:47] LABS: Reflex Lactate? Lactic Acid Added
[2022-08-18] MEDS: Lactated Ringers 1,000 ML 150 ML IVCONT ×2 (16:05→21:26)
[2022-08-18] MEDS: Heparin Sodium,Porcine 5,000 UNIT/ML VIAL 5000 UNIT SUBCUT ×2 (16:05→23:01)
--- NOTE | 2022-08-18 16:22 | PHA.MEDREC ---
Pharmacy Consult ? Medication Reconciliation Pharmacy has completed the medication reconciliation. Spoke with patient in the ED
[2022-08-18 16:45] LABS: Anion Gap 22 (12-20); Blood Urea Nitrogen 26 mg/dL (9-16); Calcium 9.3 mg/dL (8.4-10.2); Carbon Dioxide 20 mmol/L (22-29); Chloride 97 mmol/L (96-108); Creatinine Clr Calc Pharmacy 49.7; Estimated Glomerular Filt Rate 39; Potassium 4.8 mmol/L (3.3-5.1); Sodium 134 mmol/L (135-145)
[2022-08-18 17:29] LABS: Glucose, Whole Blood > 600 mg/dL (60-115)
[2022-08-18 17:30] LABS: Glucose Random 819 mg/dL (60-115)
[2022-08-18 17:31] LABS: ~Lactic Acid-LAB USE ONLY 2.1 mmol/L (0.5-2.0)
[2022-08-18 18:28] LABS: Reflex Lactate? 2 Y
[2022-08-18 18:34] LABS: Glucose, Whole Blood 526 mg/dL (60-115)
[2022-08-18 19:35] LABS: Glucose, Whole Blood 500 mg/dL (60-115)
[2022-08-18 19:38] LABS: ~Lactic Acid-LAB USE ONLY 1.2 mmol/L (0.5-2.0)
[2022-08-18] MEDS: amLODIPine Besylate 10 MG TABLET PO (20:24)
[2022-08-18 20:46] LABS: Glucose, Whole Blood 547 mg/dL (60-115)
[2022-08-18 21:27] LABS: Glucose, Whole Blood 468 mg/dL (60-115)
[2022-08-18 22:35] LABS: Glucose, Whole Blood 394 mg/dL (60-115)
[2022-08-18 23:33] LABS: Glucose, Whole Blood 385 mg/dL (60-115)
[2022-08-19] VITALS (15 sets, daily range): BP systolic 117–177; BP diastolic 57–99; PULSE 66–80; RESP 15–19; TEMP 36.8–37.1; O2SAT 91–95; BMI 32.2
[2022-08-19 00:41] LABS: Glucose, Whole Blood 319 mg/dL (60-115)
[2022-08-19 01:52] LABS: Glucose, Whole Blood 258 mg/dL (60-115)
[2022-08-19] MEDS: Dextrose 5 % and Lactated Ring 1,000 ML 150 ML IVCONT (02:00)
[2022-08-19 02:38] LABS: Glucose, Whole Blood 225 mg/dL (60-115)
[2022-08-19 03:41] LABS: Glucose, Whole Blood 222 mg/dL (60-115)
[2022-08-19 04:30] LABS: VBG Base Excess 3.8 mmol/L; VBG HCO3 27 mmol/L (22-26); VBG pCO2 39 mmHg; VBG pH 7.45 (7.32-7.43); VBG pO2 49 mmHg
[2022-08-19 05:07] LABS: MANUAL DIFF FLAG NO
[2022-08-19 05:11] LABS: Basophils Percent Auto 0.3 % (0-2); Eosinophils Absolute Auto 0.1 X10*3/uL (0.0-0.4); Eosinophils Percent Auto 0.3 % (0-4); Hematocrit 36.9 % (42.0-52.0); Hemoglobin 12.2 g/dl (14.0-18.0); Imm Gran Abs Auto 0.08 X10*3/uL (0.00-0.03); Imm Gran Pct Auto 0.5 % (0.0-0.4); Lymphocytes Absolute Auto 2.3 X10*3/uL (1.2-4.9); Lymphocytes Percent Auto 15.1 % (20-40); Mean Corpuscular HGB Conc 33.1 g/dl (31.0-36.0); Mean Corpuscular Hemoglobin 26.3 pg (27.0-33.0); Mean Corpuscular Volume 79.5 fL (80.0-98.0); Mean Platelet Volume 11.3 fL (9.4-12.4); Monocytes Absolute Auto 1.1 X10*3/uL (0.1-1.2); Monocytes Percent Auto 7.1 % (2-11); Neutrophils Absolute Auto 11.6 x10*3/uL (2.0-8.3); Neutrophils Percent Auto 76.7 % (45-73); Platelet Count 274 X10*3/uL (160-400); Red Blood Count 4.64 X10*6/uL (4.60-5.80); Red Cell Distribution Width 14.1 % (11.0-16.0); White Blood Count 15.2 X10*3/uL (4.8-10.8)
[2022-08-19 05:27] LABS: Anion Gap 14 (12-20); Blood Urea Nitrogen 20 mg/dL (9-16); Calcium 8.9 mg/dL (8.4-10.2); Carbon Dioxide 27 mmol/L (22-29); Chloride 106 mmol/L (96-108); Creatinine Clr Calc Pharmacy 79.7; Estimated Glomerular Filt Rate > 60; Glucose Random 187 mg/dL (60-115); Magnesium 2.3 mg/dL (1.6-2.6); Phosphorus 2.1 mg/dL (2.7-4.5); Potassium 3.8 mmol/L (3.3-5.1); Sodium 143 mmol/L (135-145)
[2022-08-19 05:28] LABS: Glucose, Whole Blood 170 mg/dL (60-115)
[2022-08-19 05:35] LABS: Venous Blood Gas Refer to POC result
[2022-08-19] MEDS: Potassium Phosphate/NS 15 MMOL/250 ML PLAST..BAG 62.5 MMOL IV (05:53)
[2022-08-19] MEDS: Insulin Glargine,Hum.rec.anlog 100 UNIT/ML 10 ML VIAL 15 UNIT SUBCUT (05:53)
[2022-08-19 07:32] LABS: Glucose, Whole Blood 157 mg/dL (60-115)
[2022-08-19] MEDS: Heparin Sodium,Porcine 5,000 UNIT/ML VIAL 5000 UNIT SUBCUT ×3 (08:26→22:28)
[2022-08-19] MEDS: amLODIPine Besylate 10 MG TABLET PO (08:26)
[2022-08-19 11:38] LABS: Glucose, Whole Blood 278 mg/dL (60-115)
[2022-08-19] MEDS: Insulin Lispro 100 UNIT/ML 3 ML VIAL SUBCUT ×3 (12:12→20:08)
[2022-08-19] MEDS: cefTRIAXone sodium 1 GM in 0.9 % Sodium Chloride 50 ML IV (12:14)
--- NOTE | 2022-08-19 12:41 | P.PNCC_ITS ---
Subjective Subjective Date of Service: 08/19/22 Interval History: 57-year-old gentleman with underlying history of diabetes mellitus, BPH, recent cystoscopy for obstructive uropathy presents today complaining 3 day history dysuria, increased urinary frequency. On evaluation glucose of 1400, positive for ketones, leukocytosis, acute kidney injury and hyperkalemia. Patient started on insulin drip and IV fluids and admitted to intensive care unit. Overnight titrated off insulin drip. Urine culture with Gram-negative rods. Critical Care Time (minutes): 0 Physical Exam Vital Signs: Vital Signs: Last Vital Signs Temp 98.4 F 08/19/22 07:00 Pulse 69 08/19/22 12:00 Resp 15 08/19/22 12:00 BP 140/74 H 08/19/22 12:00 Pulse Ox 93 08/19/22 12:00 O2 Del Method 08/19/22 12:00 BMI result Body Mass Index 32.2 Const: General: no acute distress, alert and awake Eyes: Sclerae: sclerae normal EOM: EOMs intact bilaterally Neck: Neck: Yes no lymphadenopathy, Yes trachea midline and Yes supple Resp: Effort & Inspection: normal respiratory effort and no respiratory distress Auscultation: clear to auscultation bilaterally Cardio: Rate: regular rate Rhythm: regular rhythm Heart sounds: no gallops, no murmurs and no rubs GI: Palpation (GI): Soft to palpation and Other GI palpation findings present ( Nontender) Auscultation: normal bowel sounds Extrem: General: Yes no pedal edema, No clubbing and No cyanosis Objective Data Labs 08/19/22 04:16 08/19/22 04:16 Labs: Laboratory Results - last 24 hr 08/18/22 08/18/22 08/18/22 11:54 13:12 13:42 WBC RBC Hgb Hct MCV MCH MCHC RDW Plt Count MPV Immature Gran % (Auto) Neut % (Auto) Lymph % (Auto) [place] % (Auto) Eos % (Auto) Baso % (Auto) Lymph # (Auto) [place] # (Auto) Eos # (Auto) Baso # (Auto) Abs Immat Gran (auto) Absolute Neuts (auto) Absolute Nucleated RBC Nucleated RBC % (auto) VBG pH VBG pCO2 VBG pO2 VBG HCO3 VBG O2 Saturation VBG Base Excess Sodium 128 L Potassium 5.3 H Chloride 86 L Carbon Dioxide 20 L Anion Gap 27 H BUN 26 H Creatinine 2.24 H Estim Creat Clear Calc 39.5 Estimated GFR 30 POC Glucose > 600 H* Random Glucose 1409 H* Lactic Acid 2.4 H* Lactic Acid F/U @ 2Hr Lactic Acid F/U @ 4Hr Calcium 9.8 Phosphorus Magnesium Total Bilirubin 0.6 AST 13 ALT 23 Alkaline Phosphatase 158 H Total Protein 7.5 Albumin 4.3 Acetone, Qual Small H 08/18/22 08/18/22 08/18/22 15:13 16:24 16:24 WBC RBC Hgb Hct MCV MCH MCHC RDW Plt Count MPV Immature Gran % (Auto) Neut % (Auto) Lymph % (Auto) [place] % (Auto) Eos % (Auto) Baso % (Auto) Lymph # (Auto) [place] # (Auto) Eos # (Auto) Baso # (Auto) Abs Immat Gran (auto) Absolute Neuts (auto) Absolute Nucleated RBC Nucleated RBC % (auto) VBG pH VBG pCO2 VBG pO2 VBG HCO3 VBG O2 Saturation VBG Base Excess Sodium 134 L Potassium 4.8 Chloride 97 Carbon Dioxide 20 L Anion Gap 22 H BUN 26 H Creatinine 1.78 H Estim Creat Clear Calc 49.7 Estimated GFR 39 POC Glucose > 600 H* Random Glucose 819 H* Lactic Acid Lactic Acid F/U @ 2Hr 2.1 H* Lactic Acid F/U @ 4Hr Calcium 9.3 Phosphorus Magnesium Total Bilirubin AST ALT Alkaline Phosphatase Total Protein Albumin Acetone, Qual 08/18/22 08/18/22 08/18/22 17:25 18:30 19:05 WBC RBC Hgb Hct MCV MCH MCHC RDW Plt Count MPV Immature Gran % (Auto) Neut % (Auto) Lymph % (Auto) [place] % (Auto) Eos % (Auto) Baso % (Auto) Lymph # (Auto) [place] # (Auto) Eos # (Auto) Baso # (Auto) Abs Immat Gran (auto) Absolute Neuts (auto) Absolute Nucleated RBC Nucleated RBC % (auto) VBG pH VBG pCO2 VBG pO2 VBG HCO3 VBG O2 Saturation VBG Base Excess Sodium Potassium Chloride Carbon Dioxide Anion Gap BUN Creatinine Estim Creat Clear Calc Estimated GFR POC Glucose > 600 H* 526 H* Random Glucose Lactic Acid Lactic Acid F/U @ 2Hr Lactic Acid F/U @ 4Hr 1.2 Calcium Phosphorus Magnesium Total Bilirubin AST ALT Alkaline Phosphatase Total Protein Albumin Acetone, Qual 08/18/22 08/18/22 08/18/22 19:30 20:42 21:24 WBC RBC Hgb Hct MCV MCH MCHC RDW Plt Count MPV Immature Gran % (Auto) Neut % (Auto) Lymph % (Auto) [place] % (Auto) Eos % (Auto) Baso % (Auto) Lymph # (Auto) [place] # (Auto) Eos # (Auto) Baso # (Auto) Abs Immat Gran (auto) Absolute Neuts (auto) Absolute Nucleated RBC Nucleated RBC % (auto) VBG pH VBG pCO2 VBG pO2 VBG HCO3 VBG O2 Saturation VBG Base Excess Sodium Potassium Chloride Carbon Dioxide Anion Gap BUN Creatinine Estim Creat Clear Calc Estimated GFR POC Glucose 500 H* 547 H* 468 H* Random Glucose Lactic Acid Lactic Acid F/U @ 2Hr Lactic Acid F/U @ 4Hr Calcium Phosphorus Magnesium Total Bilirubin AST ALT Alkaline Phosphatase Total Protein Albumin Acetone, Qual 08/18/22 08/18/22 08/19/22 22:31 23:25 00:37 WBC RBC Hgb Hct MCV MCH MCHC RDW Plt Count MPV Immature Gran % (Auto) Neut % (Auto) Lymph % (Auto) [place] % (Auto) Eos % (Auto) Baso % (Auto) Lymph # (Auto) [place] # (Auto) Eos # (Auto) Baso # (Auto) Abs Immat Gran (auto) Absolute Neuts (auto) Absolute Nucleated RBC Nucleated RBC % (auto) VBG pH VBG pCO2 VBG pO2 VBG HCO3 VBG O2 Saturation VBG Base Excess Sodium Potassium Chloride Carbon Dioxide Anion Gap BUN Creatinine Estim Creat Clear Calc Estimated GFR POC Glucose 394 H* 385 H* 319 H Random Glucose Lactic Acid Lactic Acid F/U @ 2Hr Lactic Acid F/U @ 4Hr Calcium Phosphorus Magnesium Total Bilirubin AST ALT Alkaline Phosphatase Total Protein Albumin Acetone, Qual 08/19/22 08/19/22 08/19/22 01:48 02:34 03:37 WBC RBC Hgb Hct MCV MCH MCHC RDW Plt Count MPV Immature Gran % (Auto) Neut % (Auto) Lymph % (Auto) [place] % (Auto) Eos % (Auto) Baso % (Auto) Lymph # (Auto) [place] # (Auto) Eos # (Auto) Baso # (Auto) Abs Immat Gran (auto) Absolute Neuts (auto) Absolute Nucleated RBC Nucleated RBC % (auto) VBG pH VBG pCO2 VBG pO2 VBG HCO3 VBG O2 Saturation VBG Base Excess Sodium Potassium Chloride Carbon Dioxide Anion Gap BUN Creatinine Estim Creat Clear Calc Estimated GFR POC Glucose 258 H 225 H 222 H Random Glucose Lactic Acid Lactic Acid F/U @ 2Hr Lactic Acid F/U @ 4Hr Calcium Phosphorus Magnesium Total Bilirubin AST ALT Alkaline Phosphatase Total Protein Albumin Acetone, Qual 08/19/22 08/19/22 08/19/22 04:16 04:16 04:22 WBC 15.2 H RBC 4.64 Hgb 12.2 L Hct 36.9 L MCV 79.5 L MCH 26.3 L MCHC 33.1 RDW 14.1 Plt Count 274 MPV 11.3 Immature Gran % (Auto) 0.5 H Neut % (Auto) 76.7 H Lymph % (Auto) 15.1 L [place] % (Auto) 7.1 Eos % (Auto) 0.3 Baso % (Auto) 0.3 Lymph # (Auto) 2.3 [place] # (Auto) 1.1 Eos # (Auto) 0.1 Baso # (Auto) 0.0 Abs Immat Gran (auto) 0.08 H Absolute Neuts (auto) 11.6 H Absolute Nucleated RBC 0.000 Nucleated RBC % (auto) 0.0 VBG pH 7.45 H VBG pCO2 39 VBG pO2 49 VBG HCO3 27 H VBG O2 Saturation 83.0 VBG Base Excess 3.8 Sodium 143 Potassium 3.8 D Chloride 106 Carbon Dioxide 27 Anion Gap 14 BUN 20 H Creatinine 1.11 Estim Creat Clear Calc 79.7 Estimated GFR > 60 POC Glucose Random Glucose 187 H Lactic Acid Lactic Acid F/U @ 2Hr Lactic Acid F/U @ 4Hr Calcium 8.9 Phosphorus 2.1 L Magnesium 2.3 Total Bilirubin AST ALT Alkaline Phosphatase Total Protein Albumin Acetone, Qual 08/19/22 08/19/22 08/19/22 05:24 07:28 11:30 WBC RBC Hgb Hct MCV MCH MCHC RDW Plt Count MPV Immature Gran % (Auto) Neut % (Auto) Lymph % (Auto) [place] % (Auto) Eos % (Auto) Baso % (Auto) Lymph # (Auto) [place] # (Auto) Eos # (Auto) Baso # (Auto) Abs Immat Gran (auto) Absolute Neuts (auto) Absolute Nucleated RBC Nucleated RBC % (auto) VBG pH VBG pCO2 VBG pO2 VBG HCO3 VBG O2 Saturation VBG Base Excess Sodium Potassium Chloride Carbon Dioxide Anion Gap BUN Creatinine Estim Creat Clear Calc Estimated GFR POC Glucose 170 H 157 H 278 H Random Glucose Lactic Acid Lactic Acid F/U @ 2Hr Lactic Acid F/U @ 4Hr Calcium Phosphorus Magnesium Total Bilirubin AST ALT Alkaline Phosphatase Total Protein Albumin Acetone, Qual Microbiology Microbiology Results: Microbiology 08/18/22 00:00 Urine clean catch - Urine orsa top Urine Culture - Preliminary Gram negative osiel Progress Note: A&P Assessment and plan (1) Urinary tract infection: Status: Acute (2) DKA, type 2: Status: Acute (3) HTN (hypertension): Status: Acute Plan Assessment: 57-year-old gentleman with underlying diabetes recent cystoscopy secondary to obstructive uropathy admitted with diabetic ketoacidosis likely secondary to urinary tract infection Plan: Neuro: No acute issues. Cardiac: No acute issues. Pulmonary: No acute issues. Renal: Acute kidney injury, hyperkalemia likely secondary to diabetic ketoacidosis and obstructive uropathy, resolved. Continue to monitor renal indices and urine output. Endo: Diabetic ketoacidosis, on the background of known diabetes mellitus likely provoked by urinary tract infection. Titrated off insulin drip. Continue with subcutaneous insulin. GI: No acute issues. ID: Gram-negative urinary tract infection. Continue ceftriaxone. Heme/Onc: No acute issues. Psych: No acute issues. Miscellaneous: No acute issues. Prophylaxis: heparin Diet: Diabetic At this time patient is stable to be transferred to general medical [facility]. Transfer discussed with Dr. English. Quality Stroke Does the patient have a stroke diagnosis?: No VTE Prior VTE?: No VTE Risk Level:: Medical - moderate - high VTE Device Contraindication: Treatment Not Indicated VTE Drug Contraindication: N/A - Med Ordered
[2022-08-19 16:09] LABS: Glucose, Whole Blood 322 mg/dL (60-115)
[2022-08-19 20:04] LABS: Glucose, Whole Blood 329 mg/dL (60-115)
[2022-08-20] VITALS (8 sets, daily range): BP systolic 125–170; BP diastolic 62–96; PULSE 74–85; RESP 18–20; TEMP 36.2–37.1; O2SAT 93–97; BMI 33.7
[2022-08-20 07:34] LABS: MANUAL DIFF FLAG NO
[2022-08-20 07:41] LABS: Basophils Percent Auto 0.4 % (0-2); Eosinophils Percent Auto 0.4 % (0-4); Hematocrit 38.6 % (42.0-52.0); Hemoglobin 12.6 g/dl (14.0-18.0); Imm Gran Abs Auto 0.08 X10*3/uL (0.00-0.03); Imm Gran Pct Auto 0.7 % (0.0-0.4); Lymphocytes Absolute Auto 2.3 X10*3/uL (1.2-4.9); Lymphocytes Percent Auto 21.9 % (20-40); Mean Corpuscular HGB Conc 32.6 g/dl (31.0-36.0); Mean Corpuscular Hemoglobin 25.7 pg (27.0-33.0); Mean Corpuscular Volume 78.8 fL (80.0-98.0); Mean Platelet Volume 11.2 fL (9.4-12.4); Monocytes Absolute Auto 0.9 X10*3/uL (0.1-1.2); Neutrophils Absolute Auto 7.3 x10*3/uL (2.0-8.3); Neutrophils Percent Auto 68.6 % (45-73); Platelet Count 252 X10*3/uL (160-400); White Blood Count 10.7 X10*3/uL (4.8-10.8)
[2022-08-20 07:56] LABS: Anion Gap 13 (12-20); Blood Urea Nitrogen 14 mg/dL (9-16); Calcium 8.3 mg/dL (8.4-10.2); Carbon Dioxide 26 mmol/L (22-29); Chloride 102 mmol/L (96-108); Creatinine Clr Calc Pharmacy 87.9; Estimated Glomerular Filt Rate > 60; Glucose Random 290 mg/dL (60-115); Magnesium 1.8 mg/dL (1.6-2.6); Phosphorus 2.3 mg/dL (2.7-4.5); Potassium 3.8 mmol/L (3.3-5.1); Sodium 137 mmol/L (135-145)
[2022-08-20 08:06] LABS: Glucose, Whole Blood 287 mg/dL (60-115)
--- NOTE | 2022-08-20 10:22 | MHC.CM.PN ---
Male 57 DX DKA s/p Cysto infection + elevated BGL. He was borderline DM prior to CYSTO. He is independent with all functional mobility. He lives with his and family. DP Home with services. Patient's will provide transport home. Per MD rounds DC is anticipated tomorrow. A HCP has been documented and placed on the chart. Patient has not been vaxxed for covid.
[2022-08-20] MEDS: amLODIPine Besylate 10 MG TABLET PO (10:42)
[2022-08-20] MEDS: Heparin Sodium,Porcine 5,000 UNIT/ML VIAL 5000 UNIT SUBCUT (10:43)
[2022-08-20] MEDS: Insulin Lispro 100 UNIT/ML 3 ML VIAL SUBCUT ×6 (10:44→20:23)
[2022-08-20] MEDS: Insulin Glargine,Hum.rec.anlog 100 UNIT/ML 10 ML VIAL 15 UNIT SUBCUT (10:45)
[2022-08-20 11:37] LABS: Glucose, Whole Blood 433 mg/dL (60-115)
--- NOTE | 2022-08-20 12:22 | P.PNIM_ITS ---
Subjective Subjective Date of Service: 08/20/22 Interval History: cc: polyuria, polydypsia interval history:improving Physical Exam Vital Signs: Vital Signs: Last Vital Signs Temp 97.7 F 08/20/22 11:28 Pulse 83 08/20/22 11:28 Resp 20 08/20/22 11:28 BP 125/74 08/20/22 11:28 Pulse Ox 96 08/20/22 11:28 O2 Del Method 08/20/22 11:28 BMI result Body Mass Index 33.7 General: AO X 3, no acute distress Resp: CTA bilateral, no accessory muscles used CVS: S1,S2,RRR GI: soft, non tender, non distended Neuro: motor grossly intact, alert Psych: appropriate affect, appropriate insight Objective Data Active Medications Amlodipine Besylate (Amlodipine Besylate 10 Mg Tablet) 10 mg PO DAILY [facility]; Protocol Last Admin: 08/20/22 10:42 Dose: 10 mg Documented By: CARMITA Heparin Sodium (Porcine) (Heparin Sodium,Porcine 5,000 Unit/Ml Vial) 5,000 unit SUBCUT Q8H [facility] Last Admin: 08/20/22 10:43 Dose: 5,000 unit Documented By: CARMTIA Ceftriaxone Sodium 1 gm/ (Sodium Chloride) 50 mls @ 100 mls/hr IV Q24H [facility] Last Infusion: 08/19/22 13:35 Dose: 0 mls/hr Documented By: JAX Insulin Glargine (Insulin Glargine,Hum.Rec.Anlog 100 Unit/Ml 10 Ml Vial) 15 unit SUBCUT DAILY [facility] Last Admin: 08/20/22 10:45 Dose: 15 unit Documented By: CARMITA Insulin Human Lispro (Insulin Lispro 100 Unit/Ml 3 Ml Vial) 0 unit SUBCUT QIDACHS [facility]; Protocol Last Admin: 08/20/22 10:44 Dose: 6 unit Documented By: CARMITA Pharmacy Consult (Consult Rx Perform Med Rec) 1 each MISCELLANE ONCE PRN PRN Reason: Consult order Labs 08/20/22 06:39 08/20/22 06:39 Labs: Laboratory Results - last 24 hr 08/19/22 08/19/22 08/20/22 16:06 19:26 06:39 MCV 78.8 L MCH 25.7 L MCHC 32.6 RDW 14.0 Plt Count 252 MPV 11.2 Immature Gran % (Auto) 0.7 H Neut % (Auto) 68.6 Lymph % (Auto) 21.9 [place] % (Auto) 8.0 Eos % (Auto) 0.4 Baso % (Auto) 0.4 Lymph # (Auto) 2.3 [place] # (Auto) 0.9 Eos # (Auto) 0.0 Baso # (Auto) 0.0 Abs Immat Gran (auto) 0.08 H Absolute Neuts (auto) 7.3 Absolute Nucleated RBC 0.000 Nucleated RBC % (auto) 0.0 Anion Gap Estim Creat Clear Calc Estimated GFR POC Glucose 322 H 329 H Random Glucose Calcium Phosphorus Magnesium 08/20/22 08/20/22 08/20/22 06:39 08:02 11:29 MCV MCH MCHC RDW Plt Count MPV Immature Gran % (Auto) Neut % (Auto) Lymph % (Auto) [place] % (Auto) Eos % (Auto) Baso % (Auto) Lymph # (Auto) [place] # (Auto) Eos # (Auto) Baso # (Auto) Abs Immat Gran (auto) Absolute Neuts (auto) Absolute Nucleated RBC Nucleated RBC % (auto) Anion Gap 13 Estim Creat Clear Calc 87.9 Estimated GFR > 60 POC Glucose 287 H 433 H* Random Glucose 290 H Calcium 8.3 L D Phosphorus 2.3 L Magnesium 1.8 Microbiology Microbiology Results: Microbiology 08/18/22 00:00 Urine Culture - Final Urine clean catch - Urine rosa top Escherichia coli 08/18/22 13:42 Blood Culture - Preliminary Blood - Venous No growth after 24 hours. 08/18/22 13:42 Blood Culture - Preliminary Blood - Venous No growth after 24 hours. Assessment and Plan (1) Urinary tract infection: Status: Acute Plan 57M with diet controlled DM, BPH, presented with polyuria, polydypsia, admitted to ICU for DKA, AMALIA, UTI, treated with iv fluid, abx, insulin, anion gap closed, amalia resolved, downgraded to medical floor. DKA, AMALIA improving basal, bolus insulin, check a1c monitor glucose - still with hyperglycemia obesity weight loss uti eval continue rocpehin dvt prophylaxis - lovenox reason for continued hospitalization: hyperglycemia Time Spent With Patient Time: Total time managing care of this patient today ____ minutes. Quality Stroke Does the patient have a stroke diagnosis?: No VTE Prior VTE?: No VTE Risk Level:: Medical - moderate - high VTE Device Contraindication: Treatment Not Indicated VTE Drug Contraindication: N/A - Med Ordered
[2022-08-20 12:26] LABS: Estimated Average Glucose 289 mg/dL; Hemoglobin A1c % 11.7 %
[2022-08-20] MEDS: Enoxaparin Sodium 40 MG/0.4 ML SYRINGE SUBCUT (13:02)
[2022-08-20 13:19] LABS: Iron 73 mcg/dL (45-160); Percent Iron Saturation 49 % (15-50); Total Iron Binding Capacity 149 mcg/dL (228-428); Unsaturated Iron Binding 76 ug/dL
[2022-08-20 13:32] LABS: Ferritin 365 ng/mL (20-250)
[2022-08-20] MEDS: cefTRIAXone sodium 1 GM in 0.9 % Sodium Chloride 50 ML IV (14:44)
[2022-08-20 16:20] LABS: Glucose, Whole Blood 449 mg/dL (60-115)
[2022-08-20 19:45] LABS: Glucose, Whole Blood 324 mg/dL (60-115)
[2022-08-21 03:48] VITALS: BP 150/80; PULSE 80; RESP 18; TEMP 36.5; O2SAT 98
[2022-08-21 07:06] LABS: Hematocrit 38.8 % (42.0-52.0); Hemoglobin 12.9 g/dl (14.0-18.0); Mean Corpuscular HGB Conc 33.2 g/dl (31.0-36.0); Mean Corpuscular Hemoglobin 26.2 pg (27.0-33.0); Mean Corpuscular Volume 78.9 fL (80.0-98.0); Platelet Count 236 X10*3/uL (160-400); Red Blood Count 4.92 X10*6/uL (4.60-5.80); Red Cell Distribution Width 13.8 % (11.0-16.0)
[2022-08-21 07:23] LABS: Anion Gap 13 (12-20); Blood Urea Nitrogen 15 mg/dL (9-16); Calcium 8.8 mg/dL (8.4-10.2); Carbon Dioxide 27 mmol/L (22-29); Chloride 101 mmol/L (96-108); Creatinine Clr Calc Pharmacy 92.4; Estimated Glomerular Filt Rate > 60; Glucose Fasting 283 mg/dL (60-99); Potassium 3.7 mmol/L (3.3-5.1); Sodium 137 mmol/L (135-145)
[2022-08-21 07:46] VITALS: BP 155/93; PULSE 79; RESP 20; TEMP 36.1; O2SAT 94
[2022-08-21 07:53] LABS: Glucose, Whole Blood 279 mg/dL (60-115)
[2022-08-21] MEDS: Insulin Glargine,Hum.rec.anlog 100 UNIT/ML 10 ML VIAL 15 UNIT SUBCUT (10:55)
[2022-08-21] MEDS: Insulin Lispro 100 UNIT/ML 3 ML VIAL SUBCUT ×6 (10:56→21:06)
[2022-08-21] MEDS: amLODIPine Besylate 10 MG TABLET PO (10:57)
[2022-08-21 11:30] VITALS: BP 161/77; PULSE 83; RESP 20; TEMP 36.4; O2SAT 95
[2022-08-21 11:39] LABS: Glucose, Whole Blood 329 mg/dL (60-115)
--- NOTE | 2022-08-21 12:32 | P.PNIM_ITS ---
Subjective Subjective Date of Service: 08/21/22 Interval History: cc: polyuria, polydypsia interval history:improving Physical Exam Vital Signs: Vital Signs: Last Vital Signs Temp 97.6 F 08/21/22 11:30 Pulse 83 08/21/22 11:30 Resp 20 08/21/22 11:30 BP 161/77 H 08/21/22 11:30 Pulse Ox 95 08/21/22 11:30 O2 Del Method 08/21/22 11:30 BMI result Body Mass Index 33.7 General: AO X 3, no acute distress Resp: CTA bilateral, no accessory muscles used CVS: S1,S2,RRR GI: soft, non tender, non distended Neuro: motor grossly intact, alert Psych: appropriate affect, appropriate insight Objective Data Active Medications Amlodipine Besylate (Amlodipine Besylate 10 Mg Tablet) 10 mg PO DAILY [facility]; Protocol Last Admin: 08/21/22 10:57 Dose: 10 mg Documented By: CARMITA Enoxaparin Sodium (Enoxaparin Sodium 40 Mg/0.4 Ml Syringe) 40 mg SUBCUT Q24H [facility] Last Admin: 08/20/22 13:02 Dose: 40 mg Documented By: CARMITA Ceftriaxone Sodium 1 gm/ (Sodium Chloride) 50 mls @ 100 mls/hr IV Q24H [facility] Last Infusion: 08/20/22 17:40 Dose: 0 mls/hr Documented By: CARMITA Insulin Glargine (Insulin Glargine,Hum.Rec.Anlog 100 Unit/Ml 10 Ml Vial) 15 unit SUBCUT DAILY [facility] Last Admin: 08/21/22 10:55 Dose: 15 unit Documented By: CARMITA Insulin Human Lispro (Insulin Lispro 100 Unit/Ml 3 Ml Vial) 0 unit SUBCUT QIDACHS [facility]; Protocol Last Admin: 08/21/22 10:56 Dose: 6 unit Documented By: CARMITA Insulin Human Lispro (Insulin Lispro 100 Unit/Ml 3 Ml Vial) 5 unit SUBCUT QIDACHS [facility] Last Admin: 08/21/22 10:57 Dose: 5 unit Documented By: CARMITA Pharmacy Consult (Consult Rx Perform Med Rec) 1 each MISCELLANE ONCE PRN PRN Reason: Consult order Labs 08/21/22 06:43 08/21/22 06:43 Labs: Laboratory Results - last 24 hr 08/20/22 08/20/22 08/20/22 06:39 16:04 19:37 MCV MCH MCHC RDW Plt Count MPV Absolute Nucleated RBC Nucleated RBC % (auto) Anion Gap Estim Creat Clear Calc Estimated GFR POC Glucose 449 H* 324 H Fasting Glucose Calcium Iron 73 TIBC 149 L % Saturation 49 Unsat Iron Binding 76 Ferritin 365 H 08/21/22 08/21/22 08/21/22 06:43 06:43 07:48 MCV 78.9 L MCH 26.2 L MCHC 33.2 RDW 13.8 Plt Count 236 MPV 11.0 Absolute Nucleated RBC 0.000 Nucleated RBC % (auto) 0.0 Anion Gap 13 Estim Creat Clear Calc 92.4 Estimated GFR > 60 POC Glucose 279 H Fasting Glucose 283 H Calcium 8.8 D Iron TIBC % Saturation Unsat Iron Binding Ferritin 08/21/22 11:31 MCV MCH MCHC RDW Plt Count MPV Absolute Nucleated RBC Nucleated RBC % (auto) Anion Gap Estim Creat Clear Calc Estimated GFR POC Glucose 329 H Fasting Glucose Calcium Iron TIBC % Saturation Unsat Iron Binding Ferritin Microbiology Microbiology Results: Microbiology 08/18/22 13:42 Blood Culture - Preliminary Blood - Venous No growth after 48 hours. 08/18/22 13:42 Blood Culture - Preliminary Blood - Venous No growth after 48 hours. 08/18/22 00:00 Urine Culture - Final Urine clean catch - Urine rosa top Escherichia coli Assessment and Plan (1) Urinary tract infection: Status: Acute Plan 57M with diet controlled DM, BPH, presented with polyuria, polydypsia, admitted to ICU for DKA, AMALIA, UTI, treated with iv fluid, abx, insulin, anion gap closed, amalia resolved, downgraded to medical floor. DKA, AMALIA improved, still with hyperglycemia basal, bolus insulin, a1c -11.7 monitor glucose obesity weight loss uti wtih bladder stone and pain eval continue rocpehin dvt prophylaxis - lovenox reason for continued hospitalization: hyperglycemia Time Spent With Patient Time: Total time managing care of this patient today ____ minutes. Quality Stroke Does the patient have a stroke diagnosis?: No VTE Prior VTE?: No VTE Risk Level:: Medical - moderate - high VTE Device Contraindication: Treatment Not Indicated VTE Drug Contraindication: N/A - Med Ordered
--- NOTE | 2022-08-21 14:40 | MHC.CM.PN ---
DP Home with [facility] for new DM management education. Referrals have been sent. No [facility] has accepted the patient. Notified CM requested assist with [facility]; because they declined the referral as well. DP [facility] family will provide transportation. Nursing is working with the patient re DM Education management.
[2022-08-21] MEDS: Enoxaparin Sodium 40 MG/0.4 ML SYRINGE SUBCUT (14:52)
[2022-08-21] MEDS: cefTRIAXone sodium 1 GM in 0.9 % Sodium Chloride 50 ML IV (14:52)
[2022-08-21 15:58] VITALS: BP 173/96; PULSE 88; RESP 19; TEMP 36.6; O2SAT 96
[2022-08-21 15:58] LABS: Glucose, Whole Blood 496 mg/dL (60-115)
[2022-08-21] MEDS: Insulin Glargine,Hum.rec.anlog 100 UNIT/ML 10 ML VIAL 20 UNIT SUBCUT (16:46)
[2022-08-21] MEDS: Insulin Lispro 100 UNIT/ML 3 ML VIAL 7 UNIT SUBCUT ×2 (16:47→21:06)
[2022-08-21 19:43] VITALS: BP 180/85; PULSE 81; RESP 20; TEMP 37.4; O2SAT 95
[2022-08-21 20:44] LABS: Glucose, Whole Blood 405 mg/dL (60-115)
[2022-08-21 23:28] VITALS: BP 160/85; PULSE 80; RESP 17; TEMP 36.4; O2SAT 96
[2022-08-22 04:00] VITALS: BP 169/89; PULSE 77; RESP 16; TEMP 36.5; O2SAT 96
[2022-08-22 06:00] VITALS: BMI 33.7
[2022-08-22 07:41] LABS: Glucose, Whole Blood 300 mg/dL (60-115)
[2022-08-22 08:00] VITALS: BP 153/71; PULSE 83; RESP 18; TEMP 36.5; O2SAT 96
[2022-08-22] MEDS: Insulin Glargine,Hum.rec.anlog 100 UNIT/ML 10 ML VIAL 20 UNIT SUBCUT ×3 (08:35→23:15)
[2022-08-22] MEDS: Insulin Lispro 100 UNIT/ML 3 ML VIAL 7 UNIT SUBCUT ×3 (08:36→23:14)
[2022-08-22] MEDS: Insulin Lispro 100 UNIT/ML 3 ML VIAL SUBCUT ×3 (08:36→23:14)
[2022-08-22] MEDS: amLODIPine Besylate 10 MG TABLET PO (08:37)
--- NOTE | 2022-08-22 11:05 | P.PNIM_ITS ---
Subjective Subjective Date of Service: 08/22/22 Interval History: cc: polyuria, polydypsia interval history:improving Physical Exam Vital Signs: Vital Signs: Last Vital Signs Temp 97.7 F 08/22/22 08:00 Pulse 83 08/22/22 08:00 Resp 18 08/22/22 08:00 BP 153/71 H 08/22/22 08:00 Pulse Ox 96 08/22/22 08:00 O2 Del Method 08/22/22 08:00 BMI result Body Mass Index 33.7 General: AO X 3, no acute distress Resp: CTA bilateral, no accessory muscles used CVS: S1,S2,RRR GI: soft, non tender, non distended Neuro: motor grossly intact, alert Psych: appropriate affect, appropriate insight Objective Data Active Medications Amlodipine Besylate (Amlodipine Besylate 10 Mg Tablet) 10 mg PO DAILY [facility]; Protocol Last Admin: 08/22/22 08:37 Dose: 10 mg Documented By: MAXIMILIAN Enoxaparin Sodium (Enoxaparin Sodium 40 Mg/0.4 Ml Syringe) 40 mg SUBCUT Q24H [facility] Last Admin: 08/21/22 14:52 Dose: 40 mg Documented By: CARMITA Ceftriaxone Sodium 1 gm/ (Sodium Chloride) 50 mls @ 100 mls/hr IV Q24H [facility] Last Infusion: 08/21/22 16:48 Dose: 0 mls/hr Documented By: CARMITA Insulin Glargine (Insulin Glargine,Hum.Rec.Anlog 100 Unit/Ml 10 Ml Vial) 20 unit SUBCUT DAILY [facility] Last Admin: 08/22/22 08:35 Dose: 20 unit Documented By: MAXIMILIAN Insulin Glargine (Insulin Glargine,Hum.Rec.Anlog 100 Unit/Ml 10 Ml Vial) 20 unit SUBCUT BEDTIME [facility] Last Admin: 08/21/22 16:46 Dose: 20 unit Documented By: CARMITA Insulin Human Lispro (Insulin Lispro 100 Unit/Ml 3 Ml Vial) 0 unit SUBCUT QIDACHS [facility]; Protocol Last Admin: 08/22/22 08:36 Dose: 8 unit Documented By: MAXIMILIAN Insulin Human Lispro (Insulin Lispro 100 Unit/Ml 3 Ml Vial) 7 unit SUBCUT QIDACHS [facility] Last Admin: 08/22/22 08:36 Dose: 7 unit Documented By: MAXIMILIAN Pharmacy Consult (Consult Rx Perform Med Rec) 1 each MISCELLANE ONCE PRN PRN Reason: Consult order Labs 08/21/22 06:43 08/21/22 06:43 Labs: Laboratory Results - last 24 hr 08/21/22 08/21/22 08/21/22 11:31 15:50 20:37 POC Glucose 329 H 496 H* 405 H* 08/22/22 07:28 POC Glucose 300 H Assessment and Plan (1) Urinary tract infection: Status: Acute Plan 57M with diet controlled DM, BPH, presented with polyuria, polydypsia, admitted to ICU for DKA, JULIETH, UTI, treated with iv fluid, abx, insulin, anion gap closed, julieth resolved, downgraded to medical floor. DKA, JULIETH improved, still with hyperglycemia, will add metformin basal, bolus insulin, a1c -11.7 monitor glucose obesity weight loss uti wtih bladder stone and pain eval continue rocpehin dvt prophylaxis - lovenox reason for continued hospitalization: hyperglycemia Time Spent With Patient Time: Total time managing care of this patient today ____ minutes. Quality Stroke Does the patient have a stroke diagnosis?: No VTE Prior VTE?: No VTE Risk Level:: Medical - moderate - high VTE Device Contraindication: Treatment Not Indicated VTE Drug Contraindication: N/A - Med Ordered
[2022-08-22 11:16] LABS: Hematocrit 37.4 % (42.0-52.0); Hemoglobin 12.5 g/dl (14.0-18.0); Mean Corpuscular HGB Conc 33.4 g/dl (31.0-36.0); Mean Corpuscular Volume 77.9 fL (80.0-98.0); Mean Platelet Volume 10.6 fL (9.4-12.4); Platelet Count 224 X10*3/uL (160-400); Red Cell Distribution Width 13.7 % (11.0-16.0); White Blood Count 9.8 X10*3/uL (4.8-10.8)
[2022-08-22 11:24] LABS: Glucose, Whole Blood 398 mg/dL (60-115)
[2022-08-22 11:47] LABS: Anion Gap 11 (12-20); Blood Urea Nitrogen 15 mg/dL (9-16); Calcium 9.1 mg/dL (8.4-10.2); Carbon Dioxide 28 mmol/L (22-29); Chloride 102 mmol/L (96-108); Creatinine Clr Calc Pharmacy 81.5; Estimated Glomerular Filt Rate > 60; Glucose Fasting 425 mg/dL (60-99); Potassium 4.1 mmol/L (3.3-5.1); Sodium 137 mmol/L (135-145)
[2022-08-22 11:50] VITALS: BP 133/70; PULSE 59; RESP 20; TEMP 36.4; O2SAT 93
[2022-08-22] MEDS: Enoxaparin Sodium 40 MG/0.4 ML SYRINGE SUBCUT (12:05)
[2022-08-22] MEDS: metFORMIN HCl 1,000 MG TABLET 1000 MG PO ×2 (12:06→17:20)
[2022-08-22] MEDS: cefTRIAXone sodium 1 GM in 0.9 % Sodium Chloride 50 ML IV (12:17)
[2022-08-22 15:40] VITALS: BP 142/78; PULSE 75; RESP 16; TEMP 37.2; O2SAT 95
--- NOTE | 2022-08-22 16:31 | PC.NURSE ---
This nurse educated and demonstrated to pt on how to self administer with scheduled insulin glargin and then had pt give insulin lispro on self. pt very receptive on teaching and demonstrated safe administration of subcutaneous insulin.
[2022-08-22 16:44] LABS: Glucose, Whole Blood 71 mg/dL (60-115)
[2022-08-22 16:44] LABS: Glucose, Whole Blood 75 mg/dL (60-115)
[2022-08-22 20:00] VITALS: BP 137/72; PULSE 75; RESP 15; TEMP 36.1; O2SAT 95
[2022-08-22 21:25] LABS: Glucose, Whole Blood 178 mg/dL (60-115)
[2022-08-23] VITALS: BP 132/68; PULSE 78; RESP 15; TEMP 36.6; O2SAT 97
[2022-08-23 03:26] VITALS: BP 133/87; PULSE 76; RESP 20; TEMP 37.2; O2SAT 95
[2022-08-23 05:46] VITALS: BMI 33.3
--- NOTE | 2022-08-23 06:17 | PC.NURSE ---
[id number] Notified MD regarding pt with new onset DM BS 178 questioning if this RN should administer all scheduled insulin due to the improved BS results Dr Rodriguez stated to give all ordered dosage 20 Lantus 2 Lispro per sliding scale and 7 scheduled Lispro units.
[2022-08-23 07:56] VITALS: BP 132/77; PULSE 82; RESP 19; TEMP 36.1; O2SAT 98
[2022-08-23 08:05] LABS: Glucose, Whole Blood 163 mg/dL (60-115)
[2022-08-23] MEDS: Insulin Lispro 100 UNIT/ML 3 ML VIAL SUBCUT ×3 (08:26→12:10)
[2022-08-23] MEDS: Insulin Glargine,Hum.rec.anlog 100 UNIT/ML 10 ML VIAL 20 UNIT SUBCUT (08:26)
[2022-08-23] MEDS: Insulin Lispro 100 UNIT/ML 3 ML VIAL 7 UNIT SUBCUT (08:27)
[2022-08-23] MEDS: amLODIPine Besylate 10 MG TABLET PO (08:28)
[2022-08-23] MEDS: metFORMIN HCl 1,000 MG TABLET 1000 MG PO (08:28)
--- NOTE | 2022-08-23 10:41 | PM.DS ---
DS: Providers Provider Date of Service: 08/23/22 Date of admission: 08/18/22 14:40 Primary care physician: Bridgette Coburn MD Consults: 08/19/22 12:45 Consult to Urology Routine Consulting Provider: Mauricio Nicole Reason for consultation: urinary retention DS: Diagnosis Discharge Diagnosis (1) Urinary tract infection: Status: Acute DS: Summary Hospital Course Hospital Course: from initial hpi: 57-year-old gentleman with underlying history of diabetes mellitus, BPH,? recent cystoscopy? for obstructive uropathy presents today complaining 3 day history dysuria, increased urinary frequency.? On evaluation glucose of 1400, positive for ketones,? leukocytosis, acute kidney injury and hyperkalemia.? Patient started on insulin drip and IV fluids and admitted to intensive care unit. hospital course: Patient was admitted to the ICU for diabetic ketoacidosis complicated by acute kidney injury. He was treated with insulin and IV fluids and anion gap resolved as well as acute kidney injury. He was transitioned to metformin and basal bolus insulin and sugars became better controlled. Patient received Diabetes Education and will be discharged on metformin and basal bolus insulin. for his urinary tract infection he was she was ceftriaxone, urine culture grew E coli and will be discharged on cefuroxime. For bladder stone he will follow up with Urology as outpatient. For obesity weight loss is recommended. Patient is feeling better will be discharged home Time Spent with Patient Time attestation: Total time managing care of this patient today ____ minutes. Discharge coordination time: Greater than 30 minutes Quality: Safe Use of Opioids Does Pt have an Active Cancer Diagnosis on the Problem List?: No Quality: Stroke Does the patient have a stroke diagnosis?: No Physical Exam Vital Signs: Vital Signs: Last Vital Signs Temp 96.9 F 08/23/22 07:56 Pulse 82 08/23/22 07:56 Resp 19 08/23/22 07:56 BP 132/77 08/23/22 07:56 Pulse Ox 98 08/23/22 07:56 O2 Del Method 08/23/22 07:56 BMI result Body Mass Index 33.3 General: AO X 3, no acute distress Resp: CTA bilateral, no accessory muscles used CVS: S1,S2,RRR GI: soft, non tender, non distended Neuro: motor grossly intact, alert Psych: appropriate affect, appropriate insight DS: Data Data Completed and Pending Labs on day of discharge: Laboratory Results - last 24 hr 08/22/22 08/22/22 08/22/22 10:59 10:59 11:03 WBC 9.8 RBC 4.80 Hgb 12.5 L Hct 37.4 L MCV 77.9 L MCH 26.0 L MCHC 33.4 RDW 13.7 Plt Count 224 MPV 10.6 Absolute Nucleated RBC 0.000 Nucleated RBC % (auto) 0.0 Sodium 137 Potassium 4.1 Chloride 102 Carbon Dioxide 28 Anion Gap 11 L BUN 15 Creatinine 1.10 Estim Creat Clear Calc 81.5 Estimated GFR > 60 POC Glucose 398 H* Fasting Glucose 425 H* Calcium 9.1 08/22/22 08/22/22 08/22/22 16:38 16:40 21:20 WBC RBC Hgb Hct MCV MCH MCHC RDW Plt Count MPV Absolute Nucleated RBC Nucleated RBC % (auto) Sodium Potassium Chloride Carbon Dioxide Anion Gap BUN Creatinine Estim Creat Clear Calc Estimated GFR POC Glucose 75 71 178 H Fasting Glucose Calcium 08/23/22 07:59 WBC RBC Hgb Hct MCV MCH MCHC RDW Plt Count MPV Absolute Nucleated RBC Nucleated RBC % (auto) Sodium Potassium Chloride Carbon Dioxide Anion Gap BUN Creatinine Estim Creat Clear Calc Estimated GFR POC Glucose 163 H Fasting Glucose Calcium Preliminary micro results at discharge 08/18/22 13:42 Blood Culture - Preliminary Blood - Venous No growth after 48 hours. 08/18/22 13:42 Blood Culture - Preliminary Blood - Venous No growth after 48 hours. Discharge Plan Discharge Anticipated Discharge Date/Time: 08/23/22 10:28 Patient Disposition: Home, Self-Care Discharge Diagnosis: dka, uti Referrals: Bridgette Coburn MD [Primary Care Provider] - 1 Week Discharge Medications: New cefuroxime axetil 500 mg tablet 500 mg PO BID Qty: 6 0RF metformin 1,000 mg Tablet 1,000 mg PO BIDWM Qty: 60 0RF (DME) blood-glucose meter [FreeStyle Lite Meter] Kit See Rx Instructions .Route Qty: 1 0RF Rx Instructions: As directed (DME) FreeStyle Lite Strips Strip See Rx Instructions .Route Qty: 100 0RF Rx Instructions: As directed (DME) lancets 17 gauge misc See Rx Instructions .Route Qty: 200 0RF Rx Instructions: As directed alcohol swabs [Alcohol Pads] Pads, Medicated 1 pad topical Q6H Qty: 200 0RF insulin lispro [Humalog KwikPen Insulin] 100 unit/mL insulin pen 1 sliding scale dose SUBCUT QD-TID Qty: 15 0RF Rx Instructions: Blood Sugar: <150 - 0 units 151-200 - 2 units 201-250 - 4 units 251-300 - 6 units 301-350 - 8 units >350 - 10 units insulin glargine [Lantus Solostar U-100 Insulin] 100 unit/mL (3 mL) insulin pen 15 unit SUBCUT BEDTIME Qty: 15 0RF (DME) pen needle, diabetic 32 gauge x 1/4 needle Qty: 100 0RF Rx Instructions: Use four times a day or as directed. Continued albuterol sulfate 90 mcg/actuation HFA aerosol inhaler 1 inh inhalation QID PRN (Reason: shortness of breath or wheezing) Qty: 8.5 0RF multivitamin Tablet 1 tab PO DAILY (DME) blood pressure test kit-large Kit See Rx Instructions .ROUTE .MEDSUPPLY Qty: 1 0RF Rx Instructions: As directed amlodipine 10 mg tablet 10 mg PO DAILY Qty: 90 3RF Discharge Orders: Discharge Order (Routine); Ordered 08/23/22 Ordered By: Nirav English Diet: Diabetic diet Activity on Discharge: As tolerated Stand Alone Forms: Patient Portal Discharge page Care Plan Goals: mange dm Health Concerns: dka Plan of Treatment: meds as prescribed, 3 more days ceftin Assessment: see above Patient Instructions: Type 2 Diabetes in Adults: New Diagnosis (GEN)
--- NOTE | 2022-08-23 10:51 | MHC.CM.PN ---
DP: PT HAS BEEN MEDICALLY CLEARED FOR DC HOME, NO SERVICES. RN AWARE. FAMILY WILL TRANSPORT HOME.
[2022-08-23 11:22] VITALS: BP 129/69; PULSE 65; RESP 19; TEMP 36.2; O2SAT 98
[2022-08-23 11:30] LABS: Glucose, Whole Blood 217 mg/dL (60-115)
[2022-08-23 12:02] LABS: Hematocrit 40.6 % (42.0-52.0); Hemoglobin 13.4 g/dl (14.0-18.0); Mean Corpuscular Volume 78.8 fL (80.0-98.0); Mean Platelet Volume 11.3 fL (9.4-12.4); Platelet Count 283 X10*3/uL (160-400); Red Blood Count 5.15 X10*6/uL (4.60-5.80); Red Cell Distribution Width 14.2 % (11.0-16.0); White Blood Count 14.1 X10*3/uL (4.8-10.8)
[2022-08-23] MEDS: cefTRIAXone sodium 1 GM in 0.9 % Sodium Chloride 50 ML IV (12:11)
[2022-08-23 12:20] LABS: Anion Gap 16 (12-20); Blood Urea Nitrogen 17 mg/dL (9-16); Calcium 9.6 mg/dL (8.4-10.2); Carbon Dioxide 23 mmol/L (22-29); Chloride 103 mmol/L (96-108); Creatinine Clr Calc Pharmacy 83.2; Estimated Glomerular Filt Rate > 60; Glucose Fasting 217 mg/dL (60-99); Potassium 4.2 mmol/L (3.3-5.1); Sodium 138 mmol/L (135-145)
--- NOTE | 2022-08-23 13:20 | PC.NURSE ---
Pt A&o X 4. pt discharge instruction given to pt with pt's significant other at bedside. this nurse educated pt on how to use sliding scale to administer the appropriate insulin dosage. this nurese answered and clarified question pt and significant other has - both verbalizes understanding. pt also encouraged to ask pharmacist on how to use insulin pen should he need clarification. work note done by provider and given to pt. Both IVs taken out. pt ambulated to lobby with significant other and daughter.
== END 2022-08-23 13:25 | disposition home or self-care (01) | DRG 420 ==
LOC: HO.ED 14:21 → HO.EDOVER 14:50 → HO.ICU 16:20 → HO.IMC 08-19 16:21
PROVIDERS: Physician Assistant; Admitting Provider Internal Medicine Pulmonary Disease; Emergency Provider Emergency Medicine; PCP Internal Medicine; Visit Provider Internal Medicine
DX: E11.10 Type 2 diabetes mellitus with ketoacidosis without coma (principal); N17.9 Acute kidney failure, unspecified; N13.8 Other obstructive and reflux uropathy; N39.0 Urinary tract infection, site not specified; F17.210 Nicotine dependence, cigarettes, uncomplicated; N21.0 Calculus in bladder; B96.20 Unspecified Escherichia coli [E. coli] as the cause of diseases classified elsewhere; E66.9 Obesity, unspecified; Z68.33 Body mass index [BMI] 33.0-33.9, adult; N40.1 Benign prostatic hyperplasia with lower urinary tract symptoms; E87.5 Hyperkalemia; Z79.4 Long term (current) use of insulin; Z88.5 Allergy status to narcotic agent; Z79.84 Long term (current) use of oral hypoglycemic drugs; Z79.899 Other long term (current) drug therapy
CPT/HCPCS: 36415; 80048; 80053; 81001; 82009; 82728; 82803; 82947; 83036; 83540; 83605; 83735; 84100; 85025; 85027; 85610; 85730; 87040; 87086; 87088; 87186; 99285; C1758; J0696; J1643; J1650

== ENCOUNTER 2022-09-09 14:19 | Outpatient (REF) | payer OTHER, SELFPAY ==
[2022-09-09 17:08] LABS: MANUAL DIFF FLAG NO
[2022-09-09 17:30] LABS: Basophils Absolute Auto 0.1 X10*3/uL (0.0-0.2); Basophils Percent Auto 0.5 % (0-2); Eosinophils Absolute Auto 0.2 X10*3/uL (0.0-0.4); Eosinophils Percent Auto 1.7 % (0-4); Hematocrit 40.5 % (42.0-52.0); Hemoglobin 12.9 g/dl (14.0-18.0); Imm Gran Abs Auto 0.04 X10*3/uL (0.00-0.03); Imm Gran Pct Auto 0.3 % (0.0-0.4); Lymphocytes Absolute Auto 2.9 X10*3/uL (1.2-4.9); Lymphocytes Percent Auto 22.7 % (20-40); Mean Corpuscular HGB Conc 31.9 g/dl (31.0-36.0); Mean Corpuscular Hemoglobin 25.7 pg (27.0-33.0); Mean Corpuscular Volume 80.8 fL (80.0-98.0); Mean Platelet Volume 11.1 fL (9.4-12.4); Monocytes Absolute Auto 0.8 X10*3/uL (0.1-1.2); Monocytes Percent Auto 6.5 % (2-11); Neutrophils Absolute Auto 8.6 x10*3/uL (2.0-8.3); Neutrophils Percent Auto 68.3 % (45-73); Platelet Count 365 X10*3/uL (160-400); Red Blood Count 5.01 X10*6/uL (4.60-5.80); Red Cell Distribution Width 14.6 % (11.0-16.0); White Blood Count 12.6 X10*3/uL (4.8-10.8)
[2022-09-09 17:31] LABS: Estimated Average Glucose 246 mg/dL; Hemoglobin A1c % 10.2 %
[2022-09-09 18:20] LABS: Alanine Aminotransferase 29 U/L (0-40); Albumin Level 4.3 g/dL (3.5-5.0); Alkaline Phosphatase 79 U/L (39-117); Anion Gap 13 (12-20); Aspartate Amino Transferase 19 U/L (5-37); Bilirubin Total 0.3 mg/dL (0.0-1.0); Blood Urea Nitrogen 14 mg/dL (9-16); Calcium 9.9 mg/dL (8.4-10.2); Carbon Dioxide 33 mmol/L (22-29); Chloride 105 mmol/L (96-108); Estimated Glomerular Filt Rate > 60; Glucose Random 121 mg/dL (60-115); Potassium 3.9 mmol/L (3.3-5.1); Sodium 147 mmol/L (135-145); Total Protein 7.2 g/dL (6.5-8.0)
== END 2022-09-09 14:20 | disposition home or self-care (01) ==
LOC: HO.HMGCLDS 14:19
PROVIDERS: PCP Internal Medicine; Visit Provider Internal Medicine
DX: E11.10 Type 2 diabetes mellitus with ketoacidosis without coma (principal); N17.9 Acute kidney failure, unspecified; N21.0 Calculus in bladder
CPT/HCPCS: 36415; 80053; 83036; 85025; 87086; 87088; 87186

== ENCOUNTER 2022-10-05 09:30 | Outpatient (REF) | payer OTHER, SELFPAY | END 2022-10-05 09:31 | disposition home or self-care (01) | LOC: HO.LAB 09:30 | PROVIDERS: PCP Internal Medicine; Visit Provider Urology | DX: N40.1 Benign prostatic hyperplasia with lower urinary tract symptoms (principal); N39.0 Urinary tract infection, site not specified; N13.8 Other obstructive and reflux uropathy; N21.0 Calculus in bladder; N20.0 Calculus of kidney; E11.10 Type 2 diabetes mellitus with ketoacidosis without coma; F17.200 Nicotine dependence, unspecified, uncomplicated; Z71.6 Tobacco abuse counseling | CPT/HCPCS: 51798; 87086; 99212 ==

== ENCOUNTER 2022-10-06 08:56 | Outpatient (REF) | payer OTHER, SELFPAY ==
[2022-10-06 11:31] LABS: MANUAL DIFF FLAG NO
[2022-10-06 11:56] LABS: Basophils Absolute Auto 0.1 X10*3/uL (0.0-0.2); Basophils Percent Auto 0.5 % (0-2); Eosinophils Absolute Auto 0.1 X10*3/uL (0.0-0.4); Eosinophils Percent Auto 1.1 % (0-4); Hematocrit 40.7 % (42.0-52.0); Hemoglobin 12.9 g/dl (14.0-18.0); Imm Gran Abs Auto 0.05 X10*3/uL (0.00-0.03); Imm Gran Pct Auto 0.4 % (0.0-0.4); Lymphocytes Absolute Auto 2.2 X10*3/uL (1.2-4.9); Lymphocytes Percent Auto 17.8 % (20-40); Mean Corpuscular HGB Conc 31.7 g/dl (31.0-36.0); Mean Corpuscular Volume 81.9 fL (80.0-98.0); Mean Platelet Volume 11.3 fL (9.4-12.4); Monocytes Percent Auto 8.6 % (2-11); Neutrophils Absolute Auto 8.7 x10*3/uL (2.0-8.3); Neutrophils Percent Auto 71.6 % (45-73); Platelet Count 359 X10*3/uL (160-400); Red Blood Count 4.97 X10*6/uL (4.60-5.80); Red Cell Distribution Width 15.3 % (11.0-16.0); White Blood Count 12.1 X10*3/uL (4.8-10.8)
[2022-10-06 11:57] LABS: Estimated Average Glucose 194 mg/dL; Hemoglobin A1c % 8.4 %
[2022-10-06 12:18] LABS: Alanine Aminotransferase 26 U/L (0-40); Albumin Level 4.2 g/dL (3.5-5.0); Alkaline Phosphatase 72 U/L (39-117); Anion Gap 13 (12-20); Aspartate Amino Transferase 22 U/L (5-37); Bilirubin Total 0.3 mg/dL (0.0-1.0); Blood Urea Nitrogen 17 mg/dL (9-16); Calcium 8.8 mg/dL (8.4-10.2); Carbon Dioxide 26 mmol/L (22-29); Chloride 107 mmol/L (96-108); Cholesterol 196 mg/dL; Estimated Glomerular Filt Rate > 60; Glucose Fasting 119 mg/dL (60-99); HDL Cholesterol 33 mg/dL; LDL Cholesterol Calculated 119 mg/dl; Potassium 4.1 mmol/L (3.3-5.1); Sodium 142 mmol/L (135-145); Total Protein 6.8 g/dL (6.5-8.0); Triglycerides 220 mg/dL
[2022-10-06 12:37] LABS: PSA,Total (Free>4and<10) 4.07 ng/mL (0.00-4.00)
[2022-10-08 11:54] LABS: Free Prostate Spec Ag 0.3 ng/mL; Percent Free Prostate Spec Ag 7 % (calc) (>25); Prostate Specific Ag Total 4.3 ng/mL (< OR = 4.0)
== END 2022-10-06 08:57 | disposition home or self-care (01) ==
LOC: HO.HMGCLDS 08:56
PROVIDERS: PCP Internal Medicine; Visit Provider Internal Medicine
DX: Z00.00 Encounter for general adult medical examination without abnormal findings (principal); Z12.5 Encounter for screening for malignant neoplasm of prostate; R31.9 Hematuria, unspecified; R73.9 Hyperglycemia, unspecified; I10 Essential (primary) hypertension
CPT/HCPCS: 36415; 80053; 80061; 83036; 84153; 84154; 85025

== ENCOUNTER → 2022-11-17 10:52 | Outpatient (BNVA) | payer OTHER, SELFPAY | PROVIDERS: PCP Nurse Practitioner Family; Visit Provider Internal Medicine Endocrinology, Diabetes & Metabolism | DX: E11.65 Type 2 diabetes mellitus with hyperglycemia (principal); Z83.3 Family history of diabetes mellitus; Z79.4 Long term (current) use of insulin | CPT/HCPCS: 82947; 99202 ==

== ENCOUNTER 2022-11-18 09:08 | Outpatient (REF) | payer OTHER, SELFPAY ==
[2022-11-18 12:35] LABS: Estimated Average Glucose 137 mg/dL; Hemoglobin A1c % 6.4 %
[2022-11-22 16:52] LABS: Glutamic acid decarboxylase Ab <5 IU/mL (<5)
[2022-11-25 23:24] LABS: PSA, Ultra Sensitive 2.06 ng/mL
== END 2022-11-18 09:09 | disposition home or self-care (01) ==
LOC: HO.HMGCLDS 09:08
PROVIDERS: Internal Medicine Endocrinology, Diabetes & Metabolism; Urology; PCP Internal Medicine; Visit Provider Internal Medicine
DX: Z12.5 Encounter for screening for malignant neoplasm of prostate (principal); N40.1 Benign prostatic hyperplasia with lower urinary tract symptoms; N13.8 Other obstructive and reflux uropathy; E11.10 Type 2 diabetes mellitus with ketoacidosis without coma; I10 Essential (primary) hypertension; E11.65 Type 2 diabetes mellitus with hyperglycemia
CPT/HCPCS: 36415; 83036; 84153; 86341

== ENCOUNTER → 2022-12-17 09:52 | Outpatient (BNVA) | payer OTHER, SELFPAY | PROVIDERS: Visit Provider Registered Nurse Diabetes Educator | DX: E11.65 Type 2 diabetes mellitus with hyperglycemia (principal) | CPT/HCPCS: 99211 ==

== ENCOUNTER 2022-12-18 13:44 | Outpatient (REF) | payer OTHER, SELFPAY | END 2022-12-18 13:45 | disposition home or self-care (01) | LOC: HO.LAB 13:44 | PROVIDERS: PCP Internal Medicine; Visit Provider Urology | DX: N21.0 Calculus in bladder (principal); N20.0 Calculus of kidney; R31.0 Gross hematuria; N39.0 Urinary tract infection, site not specified; N40.1 Benign prostatic hyperplasia with lower urinary tract symptoms; N13.8 Other obstructive and reflux uropathy; E11.10 Type 2 diabetes mellitus with ketoacidosis without coma; F17.200 Nicotine dependence, unspecified, uncomplicated; Z79.899 Other long term (current) drug therapy | CPT/HCPCS: 51798; 87086; 99212 ==

== ENCOUNTER 2022-12-22 15:16 | Emergency (ER) | payer OTHER, SELFPAY ==
[2022-12-22 15:41] VITALS: BP 156/89; PULSE 64; RESP 18; TEMP 36.5; O2SAT 95; BMI 31.3
--- NOTE | 2022-12-22 15:41 | ED_ITS ---
HPI - Back Pain/Injury General Chief Complaint: Back Pain/Injury Stated Complaint: lower back pain Time Seen by Provider: 12/22/22 18:14 Source: patient Mode of arrival: ambulatory Limitations: no limitations History of Present Illness HPI Narrative: Patient is a 57 year old male with history of type 2 diabetes, kidney stones, HTN, herniated disc presenting to the emergency department with significant left lower back pain with radiation down the left leg He reports waking up 3 days ago with 7/10 pain in the left lumbosacral region which increases with ambulation and activity. He states that ibuprofen and muscle relaxers at home have provided minimal relief. He reports frequent lifting at work and that he was raking his leaves a couple of days before onset of symptoms. He denies numbness and tingling in extremities, chest pain, shortness of breath, nausea, vomiting, urinary/bowel incontinence/retention, saddle paresthesias, weakness. No history of IV drug abuse. Related Data Previous Rx's Medication Instructions Recorded blood pressure test kit-large #1 ea 09/20/20 amlodipine 10 mg tablet 10 mg PO DAILY #90 tabs 04/17/22 albuterol sulfate 90 mcg/actuation 1 inh inhalation QID PRN shortness 07/18/22 aerosol inhaler of breath or wheezing #8.5 grams alcohol swabs (Alcohol Pads) 1 pad topical Q6H #200 ea 08/23/22 blood sugar diagnostic (FreeStyle #100 ea 08/23/22 Lite Strips) blood-glucose meter (FreeStyle #1 ea 08/23/22 Lite Meter kit) insulin lispro 100 unit/mL 1 sliding scale dose subcut QD-TID 08/23/22 subcutaneous pen (Humalog KwikPen #15 mL (U-100) Insulin) lancets 17 gauge #200 ea 08/23/22 flash glucose scanning reader #2 ea 09/09/22 (FreeStyle Minal 2 [place]) FreeStyle Minal 2 Sensor (flash #6 ea 09/17/22 glucose sensor) metformin 1,000 mg tablet 1,000 mg PO BIDWM #180 tabs 10/09/22 pen needle, diabetic 32 gauge x #400 ea 10/15/22 insulin glargine 100 unit/mL (3 6 unit (0.06 mL) subcut BEDTIME 04/14/23 mL) subcutaneous pen (Lantus #15 mL Solostar U-100 Insulin) levofloxacin 250 mg tablet 250 mg PO DAILY 10 days #10 tabs 12/18/22 phenazopyridine 100 mg tablet 100 mg PO BID PRN pain 40 days #40 12/18/22 (Pyridium) tabs cyclobenzaprine 10 mg tablet 10 mg PO BEDTIME PRN muscle spasm 12/22/22 #7 tabs ketorolac 10 mg tablet 10 mg PO TID PRN pain 5 days #15 12/22/22 tabs lidocaine 5 % topical patch 1 patch topical DAILY PRN pain #15 12/22/22 ea Allergies Allergy/AdvReac Type Severity Reaction Status Date / Time acetaminophen [Percocet] Allergy Intermediate hives Verified 12/22/22 15:44 oxycodone [Percocet] Allergy Intermediate hives Verified 12/22/22 15:44 tramadol Allergy Intermediate hives Verified 12/22/22 15:44 Review of Systems Review of Systems: Constitutional : No Weight loss, No Fever, No Chills, Cardiovascular : No Chest Pain, No SOB Respiratory : No Cough, No Dyspnea Gastrointestinal : No Nausea, No Vomiting, No Diarrhea, No abdominal Pain, No Hematochezia, No Melena Genitourinary : No Dysuria, No Urinary Frequency, No Hematuria, No Urinary Incontinence, Musculoskeletal : positive back pain Skin : No Skin Lesions, No rash Neuro : No Weakness, No Numbness, No Paresthesias, no loss of bowel or bladder incontinence, no saddle anesthesia Yes all other systems are reviewed and are negative PMFSH Past Medical History Attestation statement: The following information was validated with the patient. Source: old records reviewed and nursing notes reviewed Medical History Annual physical exam DJD (degenerative joint disease) Hematuria HTN (hypertension) Hyperglycemia Microscopic hematuria Uncontrolled type 2 diabetes mellitus with hyperglycemia Surgical History H/O colonoscopy H/O lumbosacral spine surgery History of dental surgery Family History Family History Father Stroke Diabetes mellitus Mother Diabetes mellitus Overweight History of high blood pressure Brother No problems noted. Brother Cancer Social History Social History Household Members: Spouse Housing: House Do you presently have visiting nurse or other home services: No Alcohol intake: current Alcohol intake frequency: holidays/special occasions only Patient Tobacco Use Status: Former Tobacco user Quit Date: 07/19/2022 Tobacco use type: Cigarette Cigarettes Per Day: 5 Years Smoked: long time e-Cigarette/Vaping Use: Never Used Advance Directives: No Advance Directives Information Provided: No Advance Directives Date on File: 08/18/22 service: No Current occupational status: employed Cognitive needs: No Hearing needs: No Vision needs: Yes Physical Exam Vital Signs: Vital Signs: Last Vital Signs Temp 97.6 F 12/22/22 19:16 Pulse 57 12/22/22 19:16 Resp 20 12/22/22 19:16 BP 154/86 H 12/22/22 19:16 Pulse Ox 97 12/22/22 19:16 O2 Del Method Room Air 12/22/22 19:16 BMI result Body Mass Index 31.3 vss Appearance: Alert.? Oriented X3.? No acute distress.? Head: Normocephalic, atraumatic, no step-offs or deformities Eyes: Pupils equal, round and reactive to light.? ENT: Pharynx normal.? Neck: Normal inspection.? Neck supple.? CVS: Normal heart rate and rhythm.? Pulses normal.? Respiratory: No respiratory distress.? Breath sounds normal.? Abdomen: Soft and nontender.? Skin: Skin warm and dry.? Normal skin color.? Normal skin turgor.? Extremities: No lower extremity edema.? No calf ttp. 5/5 strength to bilateral upper and lower extremities. Patellar reflexes 2+ and symmetric Back: No midline tenderness, no C-spine tenderness, full range of motion, no CVA tenderness bilaterally Neuro: Oriented X 3.? No motor deficit.? No sensory deficit. CN 2-12 intact Course Course Course Narrative: RME - 57 yo male presents with history of right sided kidney stone, history of DM w hx DKA, hx lumbar spine DJD to the ER for evaluation of nontraumatic severe left lower back pain for the last 3 days. Pain radiates down the left leg. No red flag symptoms of low back pain. No relief with Aleve. Reporting 10/10 pain, much worse with movement. Plan: mediate and reassess in [facility] [place] Reevaluation(s) Reevaluation #1: Patient given Toradol, Lidoderm patch reports feeling better however pain still there. A 1 time dose of morphine will be ordered, patient states he has tolerated morphine well in the past. Will give it to him here observe and then discharge home. Educated patient on diagnosis and treatment plan, answered all question, patient verbalizes understanding. At this time patient will be discharged home, advised to return with new or worsening symptoms. Educated on worrisome signs and symptoms and when to return. At this time I feel comfortable discharge home. Will have him follow-up with [facility]. Time: 19:54 Reevaluation #2: Patient is not driving home therefore a narcotic was given prior to discharge. Medications Administered Discontinued Medications Generic Name Dose Route Start Last Admin Trade Name Freq PRN Reason Stop Dose Admin Ketorolac Tromethamine 30 mg 12/22/22 18:27 12/22/22 18:40 Ketorolac Tromethamine 15 Mg/Ml Vial IM 12/22/22 18:28 30 mg ONCE ONE Administration Lidocaine 1 patch 12/22/22 18:27 12/22/22 18:40 Lidocaine 4 % Patch Adh..Patch TRANSDERMA 12/22/22 18:28 1 patch ONCE ONE Administration Protocol Medical Decision Making Medical Decision Making [facility] Narrative: 1843 Patient is a 57 year old male presenting with 3 days of left-sided lower back pain with radiation down left leg. Physical exam benign. Lower extremity reflexes and sensation intact. Differential diagnosis includes sciatica, herniated disc, lumbar radiculopathy, muscle strain. Unlikely cauda equina, epidural abscess, cord compression. Plan pain management. No indications for imaging, no red flag symptoms. Differential Diagnosis Differential Diagnoses: The differential diagnosis associated with the presentation includes Differential diagnosis includes sciatica, herniated disc, lumbar radiculopathy, muscle strain. Unlikely cauda equina, epidural abscess, cord compression. Admission/Observation Consideration of admission/observation: Escalation of care including admission/observation considered Lab Data [facility] Lab Attestation statement: I reviewed the patient's lab results. External Record Review External record reviewed: Inpatient record, Office record, Outpatient record, Prior outpatient labs, Prior outpatient radiology, Primary care record and Outside ED record Tests considered The following testing was considered but not selected: Considered lumbar imaging however due to lack of red flag symptoms this is not indicated at this time. Core Measures AMI core measures followed: Yes Measure exclusions: not indicated Discharge Plan Discharge Clinical Impression: Lumbar radiculopathy, Sciatica Patient Disposition: Home, Self-Care Instructions: Sciatica (ED), Acute Low Back Pain (ED), Back Pain (ED), Lower Back Exercises (ED) Additional Instructions: Take your medications as prescribed. If you were prescribed antibiotics today, it is important that you take your medication to their entirety, do not skip any doses, do not finish them early. Follow-up with your primary care provider this week. Return to the emergency department with new or worsening symptoms. Such as fevers, chills, chest pain, shortness of breath, nausea, vomiting, dizziness, headache, vision changes, lethargy In case of emergency call 911 Toradol has been sent to your pharmacy, you tolerated this well in the department. Please take this as prescribed do not take this with ibuprofen, or other NSAIDs, do not mix this with alcohol. Side effects of this medication including increased risk for bleeding and possible kidney injury. Prescriptions: New cyclobenzaprine 10 mg tablet 10 mg PO BEDTIME PRN (Reason: muscle spasm) Qty: 7 0RF ketorolac 10 mg tablet 10 mg PO TID PRN (Reason: pain) 5 Days Qty: 15 0RF lidocaine 5 % adhesive patch,medicated 1 patch topical DAILY PRN (Reason: pain) Qty: 15 0RF Rx Instructions: leave on most painful area for up to 12 hrs No Action (DME) FreeStyle Minal 2 Sensor Kit See Rx Instructions .Route Qty: 6 3RF Rx Instructions: As directed to monitor blood sugars metformin 1,000 mg tablet 1,000 mg PO BIDWM Qty: 180 3RF (DME) pen needle, diabetic 32 gauge x 5/32 needle See Rx Instructions .Route Qty: 400 3RF Rx Instructions: As directed to inject insulin 4 times per day albuterol sulfate 90 mcg/actuation HFA aerosol inhaler 1 inh inhalation QID PRN (Reason: shortness of breath or wheezing) Qty: 8.5 0RF (DME) blood-glucose meter [FreeStyle Lite Meter] Kit See Rx Instructions .Route Qty: 1 0RF Rx Instructions: As directed (DME) FreeStyle Lite Strips Strip See Rx Instructions .Route Qty: 100 0RF Rx Instructions: As directed (DME) lancets 17 gauge misc See Rx Instructions .Route Qty: 200 0RF Rx Instructions: As directed alcohol swabs [Alcohol Pads] Pads, Medicated 1 pad topical Q6H Qty: 200 0RF insulin lispro [Humalog KwikPen Insulin] 100 unit/mL insulin pen 1 sliding scale dose SUBCUT QD-TID Qty: 15 0RF Rx Instructions: Blood Sugar: <150 - 0 units 151-200 - 2 units 201-250 - 4 units 251-300 - 6 units 301-350 - 8 units >350 - 10 units (DME) blood pressure test kit-large Kit See Rx Instructions .ROUTE .MEDSUPPLY Qty: 1 0RF Rx Instructions: As directed amlodipine 10 mg tablet 10 mg PO DAILY Qty: 90 3RF (DME) FreeStyle Minal 2 [place] Misc See Rx Instructions .Route Qty: 2 5RF Rx Instructions: As directed insulin glargine [Lantus Solostar U-100 Insulin] 100 unit/mL (3 mL) insulin pen 6 unit SUBCUT BEDTIME Qty: 15 0RF levofloxacin 250 mg tablet 250 mg PO DAILY 10 Days Qty: 10 0RF phenazopyridine [Pyridium] 100 mg tablet 100 mg PO BID PRN (Reason: pain) 40 Days Qty: 40 0RF Referrals: [facility] [Provider Group] - 1 week Stand Alone Forms: Work/School Release
[2022-12-22] MEDS: Ketorolac Tromethamine 15 MG/ML VIAL 30 MG IM (18:40)
[2022-12-22] MEDS: Lidocaine 4 % Patch ADH..PATCH 1 PATCH TRANSDERMA (18:40)
[2022-12-22 19:16] VITALS: BP 154/86; PULSE 57; RESP 20; TEMP 36.4; O2SAT 97
[2022-12-22] MEDS: Morphine Sulfate Immed Release 15 MG TABLET PO (20:17)
== END 2022-12-22 20:24 | disposition home or self-care (01) ==
PROVIDERS: Emergency Provider Student in an Organized Health Care Education/Training Program; PCP Internal Medicine
DX: M54.16 Radiculopathy, lumbar region (principal); M54.42 Lumbago with sciatica, left side; E11.9 Type 2 diabetes mellitus without complications; I10 Essential (primary) hypertension; Z87.891 Personal history of nicotine dependence; Z87.442 Personal history of urinary calculi; Z79.4 Long term (current) use of insulin; Z79.899 Other long term (current) drug therapy
CPT/HCPCS: 96372; 99284; J1885

== ENCOUNTER 2023-01-05 06:49 | Day surgery (SDC) | payer OTHER, SELFPAY ==
[2022-12-31 12:49] VITALS: BMI 33.2
--- NOTE | 2023-01-04 09:38 | HO.ANESPROP2 ---
HPI - Anesthesia Eval Consult details Narrative: 57yo TUR Prostate, Cystoscopy Bladder Stone Removal PMFSH Active Problems Active Problems: All Active Problems (Updated 12/25/22 @ 12:18 by Bridgette Coburn MD) Pneumonia (Acute) Bladder stones (Acute) BPH w urinary obs/LUTS (Acute) Urinary tract infection (Acute) DKA, type 2 (Acute) Acute hyperkalemia (Acute) Acute renal failure (Acute) Nicotine dependence (Acute) Right kidney stone (Acute) Diabetes type 2, controlled (Acute) Microscopic hematuria (Acute) Annual physical exam (Acute) H/O lumbosacral spine surgery (Acute) Hematuria (Acute) HTN (hypertension) (Acute) DJD (degenerative joint disease) (Acute) Hyperglycemia (Acute) Past Medical History Medical History Annual physical exam DJD (degenerative joint disease) Hematuria HTN (hypertension) Hyperglycemia Microscopic hematuria Family History Family History Father Stroke Diabetes mellitus Mother Diabetes mellitus Overweight History of high blood pressure Brother No problems noted. Brother Cancer Surgical History Surgical History H/O colonoscopy H/O lumbosacral spine surgery History of dental surgery History of surgery Social History Social History Household Members: Family Housing: House Do you presently have visiting nurse or other home services: No Alcohol intake: never Patient Tobacco Use Status: Current everyday Tobacco user Tobacco use type: Cigarette Cigarette Packs Per Day: 0.25 Cigarettes Per Day: 5.0 Years Smoked: long time e-Cigarette/Vaping Use: Currently Using Advance Directives Date on File: 08/18/22 service: No Current occupational status: employed Cognitive needs: No Hearing needs: No Vision needs: Yes Meds Allergies Allergy/AdvReac Type Severity Reaction Status Date / Time oxycodone [Percocet] Allergy Intermediate hives Verified 01/05/23 09:53 tramadol Allergy Intermediate hives Verified 01/05/23 09:53 Home Medications Medication Instructions Recorded Confirmed Last Taken Type insulin glargine 100 unit/mL (3 6 unit subcut BEDTIME 12/31/22 12/31/22 Unknown History mL) subcutaneous pen (Lantus Solostar U-100 Insulin) insulin lispro 100 unit/mL 1 sliding scale dose subcut TID 12/31/22 12/31/22 Unknown History subcutaneous pen Exam Exam Date and Time: January 04, 2023 0938 Height,Weight and Vital Signs: Height 5 ft 7 in Weight 96.162 kg Pertinent Lab Results Pertinent Lab Results: Laboratory Tests 10/06/22 10/06/22 09:05 09:05 WBC 12.1 H Hgb 12.9 L Hct 40.7 L Plt Count 359 Sodium 142 Potassium 4.1 Chloride 107 Carbon Dioxide 26 BUN 17 H Creatinine 0.84 Assessment and Plan Assessment Anesthesia Assessment: Chart Reviewed
[2023-01-05] VITALS (13 sets, daily range): BP systolic 141–189; BP diastolic 77–96; PULSE 54–71; RESP 16–18; TEMP 36–36.7; O2SAT 95–98; BMI 36.4
[2023-01-05] MEDS: Lactated Ringers 1,000 ML 100 ML IVCONT ×2 (07:16→15:45)
[2023-01-05 07:17] LABS: Glucose, Whole Blood 118 mg/dL (60-115)
--- NOTE | 2023-01-05 07:42 | ECG_ITS ---
Test Reason : inverted t wave Blood Pressure : / mmHG Vent. Rate : 061 BPM Atrial Rate : 061 BPM P-R Int : 172 ms QRS Dur : 106 ms QT Int : 466 ms P-R-T Axes : 003 -21 166 degrees QTc Int : 469 ms Sinus rhythm with Premature atrial complexes Moderate voltage criteria for LVH, may be normal variant ( R in aVL , [place] product ) ST & Marked T wave abnormality, consider anterolateral ischemia Prolonged QT Abnormal ECG No previous ECGs available Referred By: Micaela Moreno Electronically Signed By:ROZ XIE
--- NOTE | 2023-01-05 08:26 | PC.NURSE ---
Inverted T waves noted on 3 lead EKG in SSS. Dr. Moreno ordered 12 lead EKG at bedside. Dr. Buenrostro reviewed 12 lead. Okay to proceed. No changes from 12 lead EDK performed in July per Dr. Buenrostro.
--- NOTE | 2023-01-05 09:15 | HO.ANESPROP2 ---
[facility] Active Problems Active Problems: All Active Problems (Updated 12/25/22 @ 12:18 by Bridgette Coburn MD) Pneumonia (Acute) Bladder stones (Acute) BPH w urinary obs/LUTS (Acute) Urinary tract infection (Acute) DKA, type 2 (Acute) Acute hyperkalemia (Acute) Acute renal failure (Acute) Nicotine dependence (Acute) Right kidney stone (Acute) Diabetes type 2, controlled (Acute) Microscopic hematuria (Acute) Annual physical exam (Acute) H/O lumbosacral spine surgery (Acute) Hematuria (Acute) HTN (hypertension) (Acute) DJD (degenerative joint disease) (Acute) Hyperglycemia (Acute) Past Medical History Medical History Annual physical exam DJD (degenerative joint disease) Hematuria HTN (hypertension) Hyperglycemia Microscopic hematuria Family History Family History Father Stroke Diabetes mellitus Mother Diabetes mellitus Overweight History of high blood pressure Brother No problems noted. Brother Cancer Surgical History Surgical History H/O colonoscopy H/O lumbosacral spine surgery History of dental surgery History of surgery History of Problems with Anesthesia: No Social History Social History Household Members: Spouse Housing: House Do you presently have visiting nurse or other home services: No Alcohol intake: never Patient Tobacco Use Status: Current everyday Tobacco user Tobacco use type: Cigarette Cigarettes Per Day: 5 Years Smoked: long time Smoked in Last 30 Days: Yes e-Cigarette/Vaping Use: Never Used Patient Interested in Nicotine Replacement: No Are you DNR?: No Advance Directives: No Advance Directives Information Provided: Yes Advance Directives Date on File: 08/18/22 Nutrition Risks: No Nutritional Risk service: No Current occupational status: employed Cognitive needs: No Hearing needs: No Vision needs: Yes Meds Allergies Allergy/AdvReac Type Severity Reaction Status Date / Time oxycodone [Percocet] Allergy Intermediate hives Verified 01/05/23 09:53 tramadol Allergy Intermediate hives Verified 01/05/23 09:53 Active Medications: Current Medications Albuterol Sulfate (Albuterol Sulfate (0.083%) 2.5 Mg/3 Ml Vial.Neb) 2.5 mg INHALE ONCE PRN PRN Reason: Shortness of Breath/Wheezing Lactated Ringer's (Lr) 1,000 mls @ 100 mls/hr IVCONT .Q10H DONOVAN Last Admin: 01/05/23 07:16 Dose: 100 mls/hr Home Medications Medication Instructions Recorded Confirmed Last Taken Type insulin glargine 100 unit/mL (3 6 unit subcut BEDTIME 12/31/22 12/31/22 Unknown History mL) subcutaneous pen (Lantus Solostar U-100 Insulin) insulin lispro 100 unit/mL 1 sliding scale dose subcut TID 12/31/22 12/31/22 Unknown History subcutaneous pen Exam Exam Date and Time: January 05, 2023 0915 Height,Weight and Vital Signs: Height 5 ft 7 in Weight 96.162 kg Last Vital Signs Temp 98.1 F 01/05/23 07:32 Pulse 64 01/05/23 07:32 Resp 18 01/05/23 07:32 BP 166/77 H 01/05/23 07:32 Pulse Ox 95 01/05/23 07:32 O2 Del Method Room Air 01/05/23 07:32 Pertinent Lab Results Pertinent Lab Results: Laboratory Tests 01/05/23 07:14 POC Glucose 118 H Airway Mallampati Class: III (edentulous) TM Dist: >3cm Neck ROM: Full Denture: Upper and Lower Loose/Missing/Broken Teeth: Yes, Upper and Lower Heart: RRR Lungs: CTA Assessment and Plan Assessment Anesthesia Assessment: Anesthesia Plan Discussed and Chart Reviewed Final Anesthetic Review History of Problems with Anesthesia: No NPO: Yes ASA Class: III Final Preanesthetic Review: Meds/Allgs Chart Reviewed, Consent Obtained/Reviewed and Anes Risks/Benef Reviewed Patient Risk: Intermediate Procedure Risk: Low Anesthetic Plan Anesthetic Plan: GA Disposition: Standard PACU
--- NOTE | 2023-01-05 09:51 | MHC.SHP ---
Pre-Procedural Eval Section A Date of Service: 01/05/23 The patient is an INPATIENT: No The History & Physical has been completed within 30 days and I have reviewed it.: Yes Section B Chief Complaint: Calculus in bladder,Benign prostatic hyperplasia Allergies: Allergies Allergy/AdvReac Type Severity Reaction Status Date / Time oxycodone [Percocet] Allergy Intermediate hives Verified 12/25/22 11:33 tramadol Allergy Intermediate hives Verified 12/25/22 11:33 Plan Diagnosis/Plan: Unchanged I have reviewed the history and physical and performed a pertinent physical examination on my patient. No changes have occurred unless specified. Cysto Transurethral resection prostate, cystolitholipaxy bladder stone Time Spent With Patient Time: Total time managing care of this patient today ____ minutes.
[2023-01-05 14:34] LABS: MANUAL DIFF FLAG NO
[2023-01-05 14:42] LABS: Basophils Percent Auto 0.3 % (0-2); Eosinophils Absolute Auto 0.1 X10*3/uL (0.0-0.4); Eosinophils Percent Auto 0.4 % (0-4); Hematocrit 39.5 % (42.0-52.0); Hemoglobin 13.3 g/dl (14.0-18.0); Imm Gran Abs Auto 0.11 X10*3/uL (0.00-0.03); Imm Gran Pct Auto 0.7 % (0.0-0.4); Lymphocytes Absolute Auto 1.3 X10*3/uL (1.2-4.9); Lymphocytes Percent Auto 8.2 % (20-40); Mean Corpuscular HGB Conc 33.7 g/dl (31.0-36.0); Mean Corpuscular Hemoglobin 26.7 pg (27.0-33.0); Mean Corpuscular Volume 79.2 fL (80.0-98.0); Mean Platelet Volume 10.1 fL (9.4-12.4); Monocytes Absolute Auto 0.8 X10*3/uL (0.1-1.2); Monocytes Percent Auto 5.3 % (2-11); Neutrophils Absolute Auto 13.1 x10*3/uL (2.0-8.3); Neutrophils Percent Auto 85.1 % (45-73); Platelet Count 277 X10*3/uL (160-400); Red Blood Count 4.99 X10*6/uL (4.60-5.80); Red Cell Distribution Width 14.8 % (11.0-16.0); White Blood Count 15.4 X10*3/uL (4.8-10.8)
[2023-01-05 15:13] LABS: Glucose, Whole Blood 123 mg/dL (60-115)
[2023-01-05 15:29] LABS: Blood Urea Nitrogen 18 mg/dL (9-16); Carbon Dioxide 27 mmol/L (22-29); Chloride 102 mmol/L (96-108); Creatinine Clr Calc Pharmacy 87.1; Estimated Glomerular Filt Rate > 60; Glucose Random 117 mg/dL (60-115); Potassium 3.4 mmol/L (3.3-5.1)
[2023-01-05 19:45] LABS: Anion Gap 14 (12-20)
[2023-01-05 19:47] LABS: Glucose, Whole Blood 154 mg/dL (60-115)
[2023-01-05 19:49] LABS: Sodium 139 mmol/L (135-145)
[2023-01-06 02:38] VITALS: BP 169/74; PULSE 88; RESP 16; TEMP 37.9; O2SAT 93
[2023-01-06] MEDS: Lactated Ringers 1,000 ML 100 ML IVCONT (02:41)
[2023-01-06] MEDS: Acetaminophen 325 MG TABLET 650 MG PO (04:27)
[2023-01-06 05:29] VITALS: TEMP 36.4
[2023-01-06 07:21] VITALS: BP 131/60; PULSE 74; RESP 18; TEMP 36.6; O2SAT 94
[2023-01-06 07:52] LABS: Glucose, Whole Blood 142 mg/dL (60-115)
[2023-01-06 11:28] LABS: Glucose, Whole Blood 98 mg/dL (60-115)
--- NOTE | 2023-01-06 13:22 | MHC.CM.PN ---
Male 57 S/P Bladder stone removal and prostate surgery. He lives w family. He is independent with all functional mobility. DP home self care. Family will provide transport home.
--- NOTE | 2023-01-06 15:20 | HO.POSTANES ---
Post Anesthesia Evaluation Post Anesthesia Evaluation Date of Service: 01/06/23 Vital Signs: Vital Signs Temp Pulse Resp BP Pulse Ox O2 Del Method 01/06/23 07:21 97.9 F 74 18 131/60 94 Room Air 01/06/23 05:29 97.5 F Anesthesia: General Mental Status: Awake Pain Control: Satisfactory Nausea/Vomiting: None Hydration: Adequate Anesthesia-Related Issues: No Anes. Related Issues
[2023-01-06 15:48] VITALS: BP 158/68; PULSE 78; RESP 21; TEMP 36.6; O2SAT 94
[2023-01-06 16:24] LABS: Glucose, Whole Blood 119 mg/dL (60-115)
[2023-01-06] MEDS: metFORMIN HCl 1,000 MG TABLET 1000 MG PO (16:49)
[2023-01-06] MEDS: amLODIPine Besylate 10 MG TABLET PO (16:49)
[2023-01-06 19:02] VITALS: BP 162/58; PULSE 91; RESP 18; TEMP 37.3; O2SAT 91
[2023-01-06 20:28] LABS: Glucose, Whole Blood 96 mg/dL (60-115)
[2023-01-06] MEDS: Zolpidem Tartrate 5 MG TABLET PO (21:04)
[2023-01-07 03:20] VITALS: BP 145/88; PULSE 88; RESP 18; TEMP 36.9; O2SAT 92
[2023-01-07 07:21] VITALS: BP 164/78; PULSE 91; RESP 20; TEMP 37.1; O2SAT 94
[2023-01-07] MEDS: metFORMIN HCl 1,000 MG TABLET 1000 MG PO ×2 (07:26→16:40)
[2023-01-07] MEDS: amLODIPine Besylate 10 MG TABLET PO (07:26)
[2023-01-07 07:30] LABS: Glucose, Whole Blood 114 mg/dL (60-115)
--- NOTE | 2023-01-07 09:06 | PC.NURSE ---
Hold CBI per MD, assess this afternoon.
--- NOTE | 2023-01-07 11:29 | PC.NURSE ---
Re-Start CBI
[2023-01-07 11:38] LABS: Glucose, Whole Blood 153 mg/dL (60-115)
[2023-01-07] MEDS: Insulin Lispro 100 UNIT/ML 3 ML VIAL SUBCUT (11:40)
[2023-01-07 13:18] LABS: MANUAL DIFF FLAG NO
[2023-01-07 13:22] LABS: Basophils Percent Auto 0.2 % (0-2); Eosinophils Absolute Auto 0.1 X10*3/uL (0.0-0.4); Eosinophils Percent Auto 0.6 % (0-4); Hematocrit 38.3 % (42.0-52.0); Hemoglobin 12.6 g/dl (14.0-18.0); Imm Gran Abs Auto 0.07 X10*3/uL (0.00-0.03); Imm Gran Pct Auto 0.4 % (0.0-0.4); Lymphocytes Absolute Auto 1.9 X10*3/uL (1.2-4.9); Lymphocytes Percent Auto 11.3 % (20-40); Mean Corpuscular HGB Conc 32.9 g/dl (31.0-36.0); Mean Corpuscular Hemoglobin 25.9 pg (27.0-33.0); Mean Corpuscular Volume 78.8 fL (80.0-98.0); Mean Platelet Volume 10.2 fL (9.4-12.4); Monocytes Absolute Auto 1.4 X10*3/uL (0.1-1.2); Monocytes Percent Auto 8.7 % (2-11); Neutrophils Absolute Auto 12.9 x10*3/uL (2.0-8.3); Neutrophils Percent Auto 78.8 % (45-73); Platelet Count 230 X10*3/uL (160-400); Red Blood Count 4.86 X10*6/uL (4.60-5.80); Red Cell Distribution Width 14.8 % (11.0-16.0); White Blood Count 16.3 X10*3/uL (4.8-10.8)
[2023-01-07 15:16] VITALS: BP 147/71; PULSE 79; RESP 18; TEMP 36.4; O2SAT 96
--- NOTE | 2023-01-07 15:35 | P.OP_ITS ---
Operative Note Operative Note Date of Service: 01/05/23 Narrative: PREOP DIAGNOSIS: Bladder outlet obstruction, enlarged prostate, bladder stone POSTOP DIAGNOSIS: Bladder outlet obstruction, enlarged prostate, bladder stone PROCEDURE: CYSTOSCOPY TRANSURETHRAL RESECTION OF Prostate, cystolitholipaxy bladder stone Anesthesia: General Details of procedure: The patient was brought into the operating room placed on the OR table in supine position. Antibiotics confirmed. General anesthesia was administered. The patient was repositioned into lithotomy position, prepped and draped in the usual sterile fashion. Time-out was done per protocol. The 22 fr cystoscope was passed transurethrally into the bladder, the bulbous urethra was within normal limits. The prostatic urethra - trilobar enlargement with obstructive median lobe. The bladder stone was visualized. The trigone was difficult to evaluate due to the obstuctive median lobe. Moderate trabeculations noted. The laser fiber 500 was used to laser the stone. The stone fragmented and the Ellik was used to irrigate out the clots. The 24 [place] resectoscope was then passed transurethrally into the bladder. The loop resectoscope was used to resect the prostate, starting with the median lobe, the trigone was evaluated in the ureteral orifices were visualized at this point. Using the [place] knife incision was made and the 5 o'clock position at the bladder neck extending into the prostatic urethra. Further dissection of the right and left lobes was done, care was taken to preserve the Veru. There bleeding areas along the bladder neck and it was noted that there at about the 6 o'clock position the bladder neck was undermined. There was oozing in this area which was cauterized. The Ellik was used to irrigate out the prostatic chips, hemostatsis was obtained. A [address] catheter 30 cc balloon was passed with some difficulty passing it past the bladder neck which caused some bleeding. A stylet was then used through the cole and the cole was manuevered into the bladder. 45 mL H20 injected into the balloon, and the cole was placed on tension for about 5 minutes. The bladder was irrigated, there were no clots. CBI with Normal Saline was started in OR. The patient was brought out of anesthesia and taken to recovery in stable condition. Complications: None Drains: [address] catheter 30 cc balloon
[2023-01-07 16:10] LABS: Glucose, Whole Blood 126 mg/dL (60-115)
[2023-01-07] MEDS: 0.9 % Sodium Chloride Flush 3 ML SYRINGE IVFLUSH (16:40)
--- NOTE | 2023-01-07 20:18 | PM.UROPN ---
Subjective Subjective Date of Service: 01/07/23 Interval history: denies pain, up to a chair, catheter clear on CBI, when stopped urine becomes grossly blood-tinged, no significant clots, HB/Hct checked - stable Physical Exam Vital Signs: Vital Signs: Last Vital Signs Temp 97.6 F 01/07/23 15:16 Pulse 79 01/07/23 15:16 Resp 18 01/07/23 15:16 BP 147/71 H 01/07/23 15:16 Pulse Ox 96 01/07/23 15:16 O2 Del Method Room Air 01/07/23 15:16 O2 Flow Rate 2 01/05/23 19:20 BMI result Body Mass Index 36.4 Urology Results Labs 01/07/23 13:16 01/05/23 18:35 Labs: Laboratory Results - last 24 hr 01/06/23 01/07/23 01/07/23 20:19 07:24 11:34 WBC RBC Hgb Hct MCV MCH MCHC RDW Plt Count MPV Immature Gran % (Auto) Neut % (Auto) Lymph % (Auto) [place] % (Auto) Eos % (Auto) Baso % (Auto) Lymph # (Auto) [place] # (Auto) Eos # (Auto) Baso # (Auto) Abs Immat Gran (auto) Absolute Neuts (auto) Absolute Nucleated RBC Nucleated RBC % (auto) POC Glucose 96 114 153 H 01/07/23 01/07/23 13:16 16:00 WBC 16.3 H RBC 4.86 Hgb 12.6 L Hct 38.3 L MCV 78.8 L MCH 25.9 L MCHC 32.9 RDW 14.8 Plt Count 230 MPV 10.2 Immature Gran % (Auto) 0.4 Neut % (Auto) 78.8 H Lymph % (Auto) 11.3 L [place] % (Auto) 8.7 Eos % (Auto) 0.6 Baso % (Auto) 0.2 Lymph # (Auto) 1.9 [place] # (Auto) 1.4 H Eos # (Auto) 0.1 Baso # (Auto) 0.0 Abs Immat Gran (auto) 0.07 H Absolute Neuts (auto) 12.9 H Absolute Nucleated RBC 0.000 Nucleated RBC % (auto) 0.0 POC Glucose 126 H Progress Note: A&P Assessment and plan (1) BPH w urinary obs/LUTS: Status: Acute (2) Gross hematuria: Status: Acute Plan s/p TURP and cystolitholipaxy for bladder stone on 01/05 persistent hematuria, H/H stable cont CBI, cont cole Time Spent With Patient Time: Total time managing care of this patient today ____ minutes.
[2023-01-07 20:46] LABS: Glucose, Whole Blood 120 mg/dL (60-115)
[2023-01-07] MEDS: Zolpidem Tartrate 5 MG TABLET PO (20:53)
[2023-01-08] VITALS: BP 157/89; PULSE 73; RESP 16; TEMP 37.1; O2SAT 94
[2023-01-08] MEDS: 0.9 % Sodium Chloride Flush 3 ML SYRINGE IVFLUSH ×2 (00:01→09:07)
[2023-01-08 07:46] LABS: Glucose, Whole Blood 93 mg/dL (60-115)
[2023-01-08 08:00] VITALS: BP 155/82; PULSE 68; RESP 18; TEMP 36.5; O2SAT 94
[2023-01-08] MEDS: metFORMIN HCl 1,000 MG TABLET 1000 MG PO (09:07)
[2023-01-08] MEDS: amLODIPine Besylate 10 MG TABLET PO (09:07)
[2023-01-08 15:15] VITALS: BP 136/92; PULSE 66; RESP 20; TEMP 36.1; O2SAT 97
--- NOTE | 2023-01-08 16:05 | PM.UROPN ---
Subjective Subjective Date of Service: 01/08/23 Interval history: denies pain, up to a chair, catheter clear on CBI, off CBI urine is strawberry colored, cole removed Physical Exam Vital Signs: Vital Signs: Last Vital Signs Temp 96.9 F 01/08/23 15:15 Pulse 66 01/08/23 15:15 Resp 20 01/08/23 15:15 BP 136/92 H 01/08/23 15:15 Pulse Ox 97 01/08/23 15:15 O2 Del Method Room Air 01/08/23 15:15 O2 Flow Rate 2 01/05/23 19:20 BMI result Body Mass Index 36.4 Urology Results Labs 01/07/23 13:16 01/05/23 18:35 Labs: Laboratory Results - last 24 hr 01/07/23 01/07/23 01/08/23 16:00 20:39 07:18 POC Glucose 126 H 120 H 93 Progress Note: A&P Assessment and plan (1) BPH w urinary obs/LUTS: Status: Acute (2) Gross hematuria: Status: Acute Plan s/p TURP and cystolitholipaxy for bladder stone on 01/05 hematuria improved, urine strawberry colored no clots cole removed no heavy lifting for 2 wks Time Spent With Patient Time: Total time managing care of this patient today ____ minutes.
--- NOTE | 2023-01-08 16:41 | PC.NURSE ---
Pt 3 way cole removed at 1250 by urologist. Pt noted to have voided at 1600 about 80cc of blood-tinged urine, without visible clotting. Pt then discharged by urologist. Pt encouraged to drink plenty of fluids, follow up with primary care, and report worsening symptoms.
== END 2023-01-08 16:40 | disposition home or self-care (01) ==
LOC: HO.SSS 06:49 → HO.S3 14:07
PROVIDERS: PCP Internal Medicine; Visit Provider Urology
PROC: 0VT08ZZ Resection of Prostate, Via Natural or Artificial Opening Endoscopic (ICD-10-PCS; CPT 52601; principal; 2023-01-05 08:30)
PROC: 0TCB8ZZ Extirpation of Matter from Bladder, Via Natural or Artificial Opening Endoscopic (ICD-10-PCS; CPT 52352; 2023-01-05 08:30)
DX: N21.0 Calculus in bladder (principal); N40.1 Benign prostatic hyperplasia with lower urinary tract symptoms; N13.8 Other obstructive and reflux uropathy; R31.29 Other microscopic hematuria; E11.65 Type 2 diabetes mellitus with hyperglycemia; E11.10 Type 2 diabetes mellitus with ketoacidosis without coma; N20.0 Calculus of kidney; E87.5 Hyperkalemia; I10 Essential (primary) hypertension; Z79.4 Long term (current) use of insulin; Z79.899 Other long term (current) drug therapy; Z88.8 Allergy status to other drugs, medicaments and biological substances; F17.210 Nicotine dependence, cigarettes, uncomplicated
CPT/HCPCS: 52317; 52601; 36415; 80048; 82947; 85025; 88300; 88305; 93005; 99221; C1758; J0690; J2250; J2405; J3010

== ENCOUNTER → 2023-01-20 14:39 | Outpatient (BNVA) | payer OTHER, SELFPAY | PROVIDERS: PCP Internal Medicine; Visit Provider Urology | DX: Z13.9 Encounter for screening, unspecified (principal) | CPT/HCPCS: 51798 ==

== ENCOUNTER 2023-03-02 10:33 | Outpatient (REF) | payer OTHER, SELFPAY ==
[2023-03-02 11:51] LABS: Appearance Urine Clear; Color Urine Yellow; Glucose Urine UA Negative (Negative); Leukocyte Esterase Urine Negative (Negative); Nitrite Urine Negative (Negative); PH 6.5 (5.0-9.0); UMIC TRIGGER UA YES; Urine Blood Negative (Negative); Urine Ketones Negative (Negative); Urine Protein 30 (1+) mg/dL (Neg-Trace)
[2023-03-02 11:55] LABS: Bacteria Urine None Seen (None Seen); Hyaline Casts Urine 0-2 /LPF (0-2); RBC Urine 0-2 /HPF (0-2); Squamous Epithelial Cell Urine 0-2 /HPF (0-2); WBC Urine 0-5 /HPF (0-5)
== END 2023-03-02 10:34 | disposition home or self-care (01) ==
LOC: HO.LAB 10:33
PROVIDERS: PCP Internal Medicine; Visit Provider Urology
DX: N39.0 Urinary tract infection, site not specified (principal)
CPT/HCPCS: 81001; 87086

== ENCOUNTER 2023-03-08 14:01 | Outpatient (AMB) | payer OTHER, SELFPAY ==
--- NOTE | 2023-03-08 12:15 | A.OFFVIS_ITS ---
Intake Intake Visit Reasons: S/P TUR Prostate Intake Note: Patient presents today for a follow-up on Post Op S/P TUR PROSTATE: Meds- Pyridium & Cephalexin Allergies to Antibiotic- No Known Allergies Blood Thinner- None PVR- 0ml Occupational Safety And Health Manager Required: No Accompanied by: Other Relationship Allergies oxycodone [Percocet] Allergy (Intermediate, Verified 03/08/23 14:13) hives tramadol Allergy (Intermediate, Verified 03/08/23 14:13) hives Medication List - Last Reconciled 03/08/23 by Alfonso Amos MD albuterol sulfate 90 mcg/actuation 1 inh inhalation QID PRN amlodipine 10 mg PO DAILY blood pressure test kit-large As directed blood sugar diagnostic (FreeStyle Lite Strips) As directed blood-glucose meter (FreeStyle Lite Meter kit) As directed cephalexin 500 mg PO BID 5 days cyclobenzaprine 10 mg PO BEDTIME PRN flash glucose scanning reader (FreeStyle Minal 2 [place]) As directed FreeStyle Minal 2 Sensor (flash glucose sensor) As directed to monitor blood sugars NS insulin glargine (Lantus Solostar U-100 Insulin) 6 units subcut BEDTIME insulin lispro 1 sliding scale dose subcut TID ketorolac 10 mg PO TID PRN 5 days lancets As directed lidocaine 5% 1 patch topical DAILY PRN metformin 1,000 mg PO BIDWM pen needle, diabetic As directed to inject insulin 4 times per day phenazopyridine (Pyridium) 100 mg PO BID PRN 40 days solifenacin (Vesicare) 10 mg PO DAILY HPI HPI Comments History of Present Illness Details Sancho is a 57-year-old male who presents today to the office for a follow up. h/o TURP, cystolitholipaxy on 01/05/23. 03/08/2023? He was last seen by me on 12/18/2022 and treated for UTI symptoms. Levaquin 250 mg QD, and Pyridium 100 mg QD for 40 days was ordered at that time. Cystoscopy TURP/cystolitholipaxy was discussed to be scheduled during that time. He is a status post Transurethral resection prostate, cystolitholipaxy bladder stone done on 01/05/2023. I reviewed the urine culture results from 03/02/2023 which came back negative for bacterial growth. He does report urine leakage with sensation of urgency before he is able to get to bathroom. He denies any burning with urination or pain in his bladder area today in the office. Patient states that he and his are being evaluated for infertility. Explained to the patient that post TURP, it is common to have retrograde ejaculation and it is important to discuss with the specialist. Review of charts: OV?10/05/22--Sancho is a 57-year-old male who present to the clinic for surgery consult and 3 months follow-up. He is a patient of Dr Nicole and saw him last on 08/14/2022 for enlarged prostate and bladder calculi, and underwent office cystoscopy noting a 1.[address] Nicole also discussed TURP, GreenLight laser enucleation of the prostate, GreenLight laser ablation of the prostate, transurethral incision of the prostate, and I-Tend prostate procedure. The patient underwent CAT scan on 07/10/2022. CAT scan results reviewed?1 09/10/2021- there is a nonobstructive 3 mm radiopaque calculi in the midpole right kidney and 1.5 cm dependent radiopaque calculi in the urinary bladder. Has a significant smoking history. The patient is diabetic. Underwent blood work recently in his PCP?s office.? The patient is not currently on any bladder medication. States having bladder infection for which he completed a ten day course of Levo jason 500mg. Evaluation today:Blood: 2+, Leukocyte Esterase: 3+,Bladderscan PVR: 0 mL.Hba1C?09/09/2022-10.2. AUA symptom score:30. Plan:Orders were written for urine culture. Patient was educated that due to high blood glucose level we can not operate right away. He was advised to control his blood glucose levels. Request to procure patient?s blood work from his PCP will be sent.? Patient was educated regarding the cystoscopy TURP/cystolitholipaxy procedure. Risks and benefits of the? procedure was discussed. Consent for cystoscopy TURP/cystolitholipaxy procedure was obtained.?? OV-12/18/22-- The patient is here for FU, he has a bladder stone.? He states he has persistent dysuria. The patient complains gross hematuira since past few days. States having pain with urination and pain if he sits for a period of time. He had elevated HbA1c, so the procedure was postponed. Repeat HbA1c has improved I discussed TURP/cystolitholipaxy pending re-evaluation of HbA1c during the last visit.? Evaluation today--Blood: 80 Adonis/L, leukocytes: 500 Tameka/uL He had HbA1c blood work done--10/06/22--8.4 which was elevated and his most recent one--11/18/22--6.4. Plan: Levaquin 250 mg QD was ordered, pending urine c/s. Pyridium 100 mg BID for 40 days was ordered. Cystoscopy TURP/cystolitholipaxy discussed to be scheduled. 03/08/2023: Plan: Vesicare 10 mg was ordered. Discussed with the patient that Vesicare may have side effects do include dry mouth. Timed Voiding every 2-3 hours. Follow up Tele-health visit in 2 months. [facility] Medical History Annual physical exam DJD (degenerative joint disease) Hematuria HTN (hypertension) Hyperglycemia Microscopic hematuria Surgical History H/O colonoscopy H/O lumbosacral spine surgery History of dental surgery History of surgery Family History Father Stroke Diabetes mellitus Mother Diabetes mellitus Overweight History of high blood pressure Brother No problems noted. Brother Cancer Social History Household Members: Family Housing: House Do you presently have visiting nurse or other home services: No Alcohol intake: never Patient Tobacco Use Status: Current everyday Tobacco user Tobacco use type: Cigarette Cigarette Packs Per Day: 0.25 Cigarettes Per Day: 5.0 Years Smoked: long time e-Cigarette/Vaping Use: Currently Using Advance Directives Date on File: 08/18/22 service: No Current occupational status: employed Cognitive needs: No Hearing needs: No Vision needs: Yes Review of Systems Const All systems reviewed & are unremarkable except as noted in HPI and below Reports no additional complaints Eyes Reports no additional complaints ENT Details: Denies neck pain and Reports other (Denies neck pain) Card Denies leg edema Resp Denies cough GI Reports bloating and Denies constipation Musc Reports no additional complaints and Denies neck pain Skin/Breast Denies rash and Denies unusual bruising Neuro Reports no additional complaints Psych Reports no additional complaints Endo Reports no additional complaints Kennedy/Lymph Reports no additional complaints Aller/Immun Reports no additional complaints Physical Exam Const General: no acute distress and well developed Orientation/consciousness: patient oriented x3 HEENT Head: Yes normocephalic and Yes atraumatic Eyes Conjunctivae: conjunctivae normal Neck Neck: Yes normal visual inspection Chest Chest palpation & inspection: normal inspection of the chest Resp Effort & Inspection: normal respiratory effort Cardio Rate: regular rate GI Inspection: Yes normal to inspection Skin General skin exam: no rashes or lesions noted Neuro General: patient oriented x3 Psych Appearance: grossly normal Affect: normal affect Office Procedures Post Void Residual Post Residual Void Post Void Residual (PVR): 0 14834-[id number] Void Residual by ultrasound Results AMB Urinalysis, Automated UA Leukoctes 0 Tameka/uL Last Edit by VIKTORIA Todd on 03/08/23 14:47 UA Nitrite Negative Last Edit by VIKTORIA Todd on 03/08/23 14:47 UA Urobilinogen 0.2 mg/dL Last Edit by VIKTORIA Todd on 03/08/23 14:4 7 UA Protein 30 mg/dL Last Edit by VIKTORIA Todd on 03/08/23 14:47 1+ Emi Mccord 03/08/23 14:47 UA pH 6.0 Last Edit by VIKTORIA Todd on 03/08/23 14:47 UA Blood 0 Adonis/uL Last Edit by VIKTORIA Todd on 03/08/23 14:47 UA Specific [place] 1.020 Last Edit by VIKTORIA Todd on 03/08/23 14: 47 UA Ketone Negative Last Edit by VIKTORIA Todd on 03/08/23 14:47 UA Bilirubin 1 mg/dL Last Edit by VIKTORIA Todd on 03/08/23 14:47 1+ Emi Mccord 03/08/23 14:47 UA Glucose 0 mg/dL Last Edit by VIKTORIA Todd on 03/08/23 14:47 Results Reviewed Results Reviewed: Laboratory Last Values Urine pH (Auto) 6.0 03/08/23 14:46 Specific [place] (Auto) 1.020 03/08/23 14:46 Urine Protein (Auto) 30 mg/dL 03/08/23 14:46 Glucose (UA)(Auto) 0 mg/dL 03/08/23 14:46 Urine Ketones (Auto) Negative 03/08/23 14:46 Urine Blood (Auto) 0 Adonis/uL 03/08/23 14:46 Urine Nitrite (Auto) Negative 03/08/23 14:46 Urine Bilirubin (Auto) 1 mg/dL 03/08/23 14:46 Urine Urobilinogen (Auto) 0.2 mg/dL 03/08/23 14:46 Leukocyte Esterase (Auto) 0 Tameka/uL 03/08/23 14:46 Ordered: Urine Culture Procedure Result Verified Site Urine Culture Final 03/03/23-1039 No growth. Assessment & Plan Assessment & Plan (1) BPH w urinary obs/LUTS: Code(s): N40.1 - Benign prostatic hyperplasia with lower urinary tract symptoms; N13.8 - Other obstructive and reflux uropathy (2) DKA, type 2: Comment: Hospitalized from 08/18 till 08/24 Code(s): E11.10 - Type 2 diabetes mellitus with ketoacidosis without coma (3) Nicotine dependence: Code(s): F17.200 - Nicotine dependence, unspecified, uncomplicated (4) Right kidney stone: Code(s): N20.0 - Calculus of kidney (5) History of bladder stone: Code(s): Z87.448 - Personal history of other diseases of urinary system (6) OAB (overactive bladder): Code(s): N32.81 - Overactive bladder Plan Vesicare 10 mg was ordered. Discussed with the patient that Vesicare may have side effects do include dry mouth. Timed Voiding every 2-3 hours. Follow up Tele-health visit in 2 months. Orders: Orders AMB Urinalysis Automated 03/08/23 Z13.9 - Encounter for screening, unspecified AMB Post Void Residual by ultrasound 03/08/23 N39.8 - Other specified disorders of urinary system Medications: New solifenacin (Vesicare) 10 mg PO DAILY 90 tabs 2RF Patient Instructions: The patient had an opportunity to ask questions regarding treatment plan. All questions were answered. Imaging, Laboratory studies and physical exam results were discussed and reviewed in detail. No major barriers to understanding were identified. The patient expressed understanding and agreement with the above treatment plan.? ? ? The patient is aware they should contact our office by phone for worsening of their current condition or the appearance of new symptoms. Compliance is encouraged with any medications and followup testing that is ordered.? ? ? It is a privilege to be allowed the opportunity to participate in the urologic care of your patient. If you have any questions or concerns regarding treatment for the above conditions please do not hesitate to contact me. The office telep karli contact is [phone].? ? ? This note is constructed in part using voice recognition software. While every effort has been made to ensure accuracy plant tour guide errors may have been included.? ? ? Yours sincerely,? ? ? Alfonso Amos MD? ? Coding Level of Care Code Est Pt Level 4 (48704) Diagnoses BPH w urinary obs/LUTS N40.1; N13.8 DKA, type 2 E11.10 Nicotine dependence F17.200 Right kidney stone N20.0 History of bladder stone Z87.448 OAB (overactive bladder) N32.81 CPT Codes Post Residual Void - PVR CPT Code: 35704-Swdy Void Residual by ultrasound ([id number])
== END 2023-03-08 14:54 | disposition home or self-care (01) ==
PROVIDERS: PCP Internal Medicine; Visit Provider Urology
DX: N40.1 Benign prostatic hyperplasia with lower urinary tract symptoms (principal); N13.8 Other obstructive and reflux uropathy; E11.10 Type 2 diabetes mellitus with ketoacidosis without coma; F17.200 Nicotine dependence, unspecified, uncomplicated; N20.0 Calculus of kidney; Z87.448 Personal history of other diseases of urinary system; N32.81 Overactive bladder
CPT/HCPCS: 99024; 99214

== ENCOUNTER → 2023-03-08 14:01 | Outpatient (BNVA) | payer OTHER, SELFPAY | PROVIDERS: PCP Internal Medicine; Visit Provider Urology | DX: N40.1 Benign prostatic hyperplasia with lower urinary tract symptoms (principal); N13.8 Other obstructive and reflux uropathy; N20.0 Calculus of kidney; N32.81 Overactive bladder; E11.10 Type 2 diabetes mellitus with ketoacidosis without coma; F17.200 Nicotine dependence, unspecified, uncomplicated; Z87.448 Personal history of other diseases of urinary system | CPT/HCPCS: 51798; 81003; 99212 ==

== ENCOUNTER 2023-03-26 10:03 | Outpatient (AMB) | payer OTHER, SELFPAY ==
--- NOTE | 2023-03-26 10:33 | MHC.PC.OV ---
Vital Signs 03/26/23 10:34 Height 5 ft 7 in Weight 213 lb BMI 33.4 BP 138/72 Blood Pressure Location Rt brachial Position Sitting Pulse 61 Pulse Source Pulse Oximeter Pulse Oximetry (%) 98 Oxygen Delivery Method Room Air Intake Visit Reasons: 3 Month follow up Intake Note: Pt is here today for 3 months follow up visit. Allergies oxycodone [Percocet] Allergy (Intermediate, Verified 03/26/23 10:40) hives tramadol Allergy (Intermediate, Verified 03/26/23 10:40) hives Medication List - Last Reconciled 03/26/23 by Bridgette Coburn MD albuterol sulfate 90 mcg/actuation 1 inh inhalation QID PRN amlodipine 10 mg PO DAILY blood pressure test kit-large As directed blood sugar diagnostic (FreeStyle Lite Strips) As directed blood-glucose meter (FreeStyle Lite Meter kit) As directed flash glucose scanning reader (FreeStyle Minal 2 [place]) As directed FreeStyle Minal 2 Sensor (flash glucose sensor) As directed to monitor blood sugars NS insulin glargine (Lantus Solostar U-100 Insulin) 6 units subcut BEDTIME insulin lispro 1 sliding scale dose subcut TID ketorolac 10 mg PO TID PRN 5 days lancets As directed lidocaine 5% 1 patch topical DAILY PRN metformin 1,000 mg PO BIDWM pen needle, diabetic As directed to inject insulin 4 times per day phenazopyridine (Pyridium) 100 mg PO BID PRN 40 days solifenacin (Vesicare) 10 mg PO DAILY Tobacco use date assessed: 03/26/23 Dental Screening Dental Screen Date: 03/26/23 Did you have a dental visit in the last 12 months?: No Did you have a dental problem in the last 6 months where you did not have access to dental care?: No Was dental information given to patient?: Patient declined HPI 3 Month follow up HPI Details Pt presents for DM 2, HTN, stable on meds. Pt c/o urinary incontinence since TURP and he follows up with Urology [facility] Medical History Annual physical exam DJD (degenerative joint disease) Hematuria HTN (hypertension) Hyperglycemia Microscopic hematuria Surgical History H/O colonoscopy H/O lumbosacral spine surgery History of dental surgery History of surgery Family History Father Stroke Diabetes mellitus Mother Diabetes mellitus Overweight History of high blood pressure Brother No problems noted. Brother Cancer Social History Household Members: Family Housing: House Do you presently have visiting nurse or other home services: No Alcohol intake: never Patient Tobacco Use Status: Current everyday Tobacco user Tobacco use type: Cigarette Cigarette Packs Per Day: 0.25 Cigarettes Per Day: 5.0 Years Smoked: long time e-Cigarette/Vaping Use: Currently Using Advance Directives Date on File: 08/18/22 service: No Current occupational status: employed Cognitive needs: No Hearing needs: No Vision needs: Yes Questionnaire Thrive Questionnaire Date Thrive assessed: 01/06/23 SUNIL-7 AMB Questionnaire SUNIL-7 Date SUNIL - 7 assessed: 12/25/22 Source: Developed by Drs. Radames Bravo, Lisset Sinclair, Tapan Haile and colleagues, with an educational nancy from [employer]. Review of Systems Const All systems reviewed & are unremarkable except as noted in HPI and below Reports no additional complaints Eyes Reports no additional complaints ENT Reports no additional complaints Card Reports no additional complaints Resp Reports no additional complaints GI Reports no additional complaints Reports no additional complaints Physical exam (Primary Care) Vital Signs: Last Vital Signs Pulse 61 03/26/23 10:34 BP 138/72 03/26/23 10:34 Pulse Ox 98 03/26/23 10:34 Oxygen Delivery Method Room Air 03/26/23 10:34 BMI result Body Mass Index 33.4 Tobacco/Smoking Status: Tobacco use Status Tobacco use date assessed 03/26/23 03/26/23 10:46 Patient Tobacco Use Status Current everyday Tobacco 03/26/23 10:33 Tobacco use type Cigarette 03/26/23 10:33 e-Cigarette/Vaping Use Currently Using 03/26/23 10:33 Thrive Assessment: Date of Thrive Assessment Date Thrive assessed 01/06/23 03/26/23 10:33 Const General: no acute distress HENMT Head: Yes normal to inspection Ears: hearing grossly normal bilaterally Throat: Yes posterior oropharynx normal Neck Neck: Yes supple Resp Effort & Inspection: normal respiratory effort Auscultation: clear to auscultation bilaterally Cardio Rhythm: regular rhythm Heart sounds: S1 normal heart sound present and S2 normal heart sound present Assessment and Plan Assessment & Plan (1) Diabetes type 2, controlled: Code(s): E11.9 - Type 2 diabetes mellitus without complications Plan: Continue ADA diet and metformin. patient will return for fasting blood work next week. (2) HTN (hypertension): Code(s): I10 - Essential (primary) hypertension Qualifiers: Hypertension type: essential hypertension Qualified Code(s): I10 - Essential (primary) hypertension Plan: Continue amlodipine (3) OAB (overactive bladder): Code(s): N32.81 - Overactive bladder Plan: Follow-up with urology Orders: Orders Comprehensive [place]. Panel Fast Today E11.9 - Type 2 diabetes mellitus without complications, I10 - Essential (primary) hypertension, N32.81 - Overactive bladder Lipid Panel Today E11.9 - Type 2 diabetes mellitus without complications, I10 - Essential (primary) hypertension, N32.81 - Overactive bladder Comprehensive [place]. Panel Fast 3 Months E11.9 - Type 2 diabetes mellitus without complications, I10 - Essential (primary) hypertension Lipid Panel 3 Months E11.9 - Type 2 diabetes mellitus without complications, I10 - Essential (primary) hypertension Complete Blood Count Auto Diff 3 Months E11.9 - Type 2 diabetes mellitus without complications, I10 - Essential (primary) hypertension Hemoglobin A1c Today E11.9 - Type 2 diabetes mellitus without complications, I10 - Essential (primary) hypertension, N32.81 - Overactive bladder Hemoglobin A1c 3 Months E11.9 - Type 2 diabetes mellitus without complications, I10 - Essential (primary) hypertension Microalbumin, Random (w Creat) 3 Months E11.9 - Type 2 diabetes mellitus without complications, I10 - Essential (primary) hypertension Medications: Changed From metformin 1,000 mg PO BIDWM 180 tabs 3RF To metformin 1,000 mg PO BID 180 tabs 3RF Discontinued FreeStyle Minal 2 Sensor (flash glucose sensor) Discontinued Reason: Doctor's Order As directed to monitor blood sugars 6 ea 3RF NS E11.10 - Type 2 diabetes mellitus with ketoacidosis without coma flash glucose scanning reader (FreeStyle Minal 2 [place]) Discontinued Reason: Doctor's Order As directed 2 ea 5RF Coding Level of Care Code Est Pt Level 4 (32190) Diagnoses Diabetes type 2, controlled E11.9 Essential hypertension I10 Hypertension type: essential hypertension OAB (overactive bladder) N32.81
[2023-03-26 10:34] VITALS: BP 138/72; PULSE 61; O2SAT 98; BMI 33.4
== END 2023-03-26 11:21 | disposition home or self-care (01) ==
PROVIDERS: PCP Internal Medicine; Visit Provider Internal Medicine
DX: E11.9 Type 2 diabetes mellitus without complications (principal); I10 Essential (primary) hypertension; N32.81 Overactive bladder
CPT/HCPCS: 99214

== ENCOUNTER → 2023-04-15 12:00 | Outpatient (BNVA) | payer OTHER, SELFPAY | PROVIDERS: Visit Provider Registered Nurse Diabetes Educator ==

== ENCOUNTER 2023-06-03 09:35 | Outpatient (AMB) | payer OTHER, SELFPAY ==
--- NOTE | 2023-06-03 09:55 | A.OFFVIS_ITS ---
Intake Intake Visit Reasons: DM [employer] Required: No Accompanied by: Self / Same As Patient Allergies oxycodone [Percocet] Allergy (Intermediate, Verified 03/26/23 10:40) hives tramadol Allergy (Intermediate, Verified 03/26/23 10:40) hives HPI Comprehensive Diabetes Asmnt Most Recent Diabetes Results: Hemoglobin A1c 6.2 % 03/20/20 Microalb/Creat Ratio 10.3 ug/mg cr 05/15/19 Cholesterol 196 mg/dL 10/06/22 HDL Cholesterol 33 mg/dL 10/06/22 Triglycerides 220 mg/dL 10/06/22 Creatinine 1.07 mg/dL (0.5-1.4) 01/05/23 Blood Urea Nitrogen 18 mg/dL (9-16) H 01/05/23 Sodium 139 mmol/L (135-145) 01/05/23 Potassium 3.4 mmol/L (3.3-5.1) 01/05/23 Chloride 102 mmol/L (96-108) 01/05/23 Carbon Dioxide 27 mmol/L (22-29) 01/05/23 Calcium 9.0 mg/dL (8.4-10.2) 01/05/23 AST 22 U/L (5-37) 10/06/22 ALT 26 U/L (0-40) 10/06/22 Total Protein 6.8 g/dL (6.5-8.0) 10/06/22 Albumin 4.2 g/dL (3.5-5.0) 10/06/22 [facility]LY [facility] Medical History Annual physical exam DJD (degenerative joint disease) Hematuria HTN (hypertension) Hyperglycemia Microscopic hematuria Surgical History H/O colonoscopy H/O lumbosacral spine surgery History of dental surgery History of surgery Family History Father Stroke Diabetes mellitus Mother Diabetes mellitus Overweight History of high blood pressure Brother No problems noted. Brother Cancer Social History Household Members: Family Housing: House Do you presently have visiting nurse or other home services: No Alcohol intake: never Patient Tobacco Use Status: Current everyday Tobacco user Tobacco use type: Cigarette Cigarette Packs Per Day: 0.25 Cigarettes Per Day: 5.0 Years Smoked: long time e-Cigarette/Vaping Use: Currently Using Advance Directives Date on File: 08/18/22 service: No Current occupational status: employed Cognitive needs: No Hearing needs: No Vision needs: Yes Assessment & Plan Assessment & Plan (1) DKA, type 2: Comment: Hospitalized from 08/18 till 08/24 Code(s): E11.10 - Type 2 diabetes mellitus with ketoacidosis without coma Plan: Learning objectives: The patient was provided with verbal and written education on the following topics as outlined below. Assess patient education level/literacy/barriers Patient questions/concerns, did not bring meter to today's. Patient is overdue for next A1c. Patient's PCP at this A1c order entered. Recommended to patient he have fasting labs drawn before appointment with PCP in June 2023 Patient continues to work on carbohydrate portions stating he feels afraid to eat certain carbohydrate. Recommended to patient to test glucose prior to largest meal of the day, weight 2 hours and retest glucose to see how meal has affected glucose level The patient met all learning objectives and was able to verbalize understanding and provide teach back of education topics discussed . The patient was provided with the opportunity to ask questions and all questions were answered. Topics covered in today?s session included: Medications (If applicable) ? Name of medication? Dosing/administration instructions? Mechanism of action? Potential side effects? Potential adverse reaction and appropriate treatment? Review onset, peak, duration Assess for concerns re: insurance coverage, cost, barriers to compliance Insulin/Injectables (If applicable) ? Storage/care of insulin? Injection sites? Site rotation? Onset, peak, duration ? Drawing up insulin? Injecting insulin/other injectables? Sharps disposal Continuous blood glucose monitoring (if applicable) Hypoglycemia and Hyperglycemia ? Signs and symptoms? Causes? Treatment? Preventing hypoglycemia? When to seek medical attention ?Blood glucose targets and how you feel when your blood glucose is in and out of your target ranges. ?Monitoring and knowing your A1C. ?What can make blood glucose go up and down and preventing high and low blood glucose. ?Review of blood sugar targets in expected goal range and outside of expected goal range. ?Problem solving and preventing hyper/hypoglycemia. ?Sick day management of diabetes. ?Using blood sugar results in decision making process in managing diabetes. ?Patient was receptive to information provided and participated in the discussion. Asked?appropriate questions and demonstrated good understanding of the topics discussed.? ? Educational Materials: The patient was provided with the following written educational materials: Target Goal handout Smart Goal Assessment:? Pt met goal less than 25% New Smart Goal: Pt will get A1c drawn Patient Response to instructions: Comprehension of Instructions: good Readiness to make changes:? action How confident they feel about making changes:good Coding Level of Care Code Est Pt Level 1 (57076) Diagnoses DKA, type 2 E11.10
== END 2023-06-03 10:00 | disposition home or self-care (01) ==
PROVIDERS: Visit Provider Registered Nurse Diabetes Educator
DX: E11.10 Type 2 diabetes mellitus with ketoacidosis without coma (principal)

== ENCOUNTER → 2023-06-03 09:35 | Outpatient (BNVA) | payer OTHER, SELFPAY | PROVIDERS: Visit Provider Registered Nurse Diabetes Educator | DX: E11.10 Type 2 diabetes mellitus with ketoacidosis without coma (principal) | CPT/HCPCS: 99211 ==

== ENCOUNTER 2023-06-04 09:02 | Outpatient (REF) | payer OTHER, SELFPAY ==
[2023-06-04 11:53] LABS: Estimated Average Glucose 123 mg/dL; Hemoglobin A1c % 5.9 % (<6.0)
[2023-06-04 12:24] LABS: Alanine Aminotransferase 15 U/L (0-40); Albumin Level 4.3 g/dL (3.5-5.0); Alkaline Phosphatase 85 U/L (39-117); Anion Gap 9 (12-20); Aspartate Amino Transferase 18 U/L (5-37); Bilirubin Total 0.4 mg/dL (0.0-1.0); Blood Urea Nitrogen 12 mg/dL (9-16); Calcium 9.5 mg/dL (8.4-10.2); Carbon Dioxide 32 mmol/L (22-29); Chloride 106 mmol/L (96-108); Cholesterol 177 mg/dL (<200); Estimated Glomerular Filt Rate > 60; Glucose Fasting 106 mg/dL (60-99); HDL Cholesterol 35 mg/dL (>40); LDL Cholesterol Calculated 118 mg/dL (<100); Sodium 143 mmol/L (135-145); Total Protein 7.1 g/dL (6.5-8.0); Triglycerides 121 mg/dL (<150)
== END 2023-06-04 09:03 | disposition home or self-care (01) ==
LOC: HO.HMGCLDS 09:02
PROVIDERS: PCP Internal Medicine; Visit Provider Internal Medicine
DX: E11.22 Type 2 diabetes mellitus with diabetic chronic kidney disease (principal); I12.9 Hypertensive chronic kidney disease with stage 1 through stage 4 chronic kidney disease, or unspecified chronic kidney disease; N32.81 Overactive bladder
CPT/HCPCS: 36415; 80053; 80061; 83036

== ENCOUNTER 2023-06-09 14:00 | Outpatient (AMB) | payer OTHER, SELFPAY ==
--- NOTE | 2023-06-09 14:04 | A.OFFVIS_ITS ---
Intake Intake Visit Reasons: Calculus in bladder, BPH- follow up Intake Note: Patient is Present for Follow Up Urology Medication: Vesicare Antibiotic Allergies:None Blood Thinners:None PVR: 30 Allergies oxycodone [Percocet] Allergy (Intermediate, Verified 07/01/23 10:07) hives tramadol Allergy (Intermediate, Verified 07/01/23 10:07) hives Medication List - Last Reconciled 06/09/23 by Alfonso Amos MD albuterol sulfate 90 mcg/actuation 1 inh inhalation QID PRN amlodipine 10 mg PO DAILY blood pressure test kit-large As directed blood sugar diagnostic (FreeStyle Lite Strips) As directed blood-glucose meter (FreeStyle Lite Meter kit) As directed lancets As directed lidocaine 5% 1 patch topical DAILY PRN metformin 1,000 mg PO BID pen needle, diabetic As directed to inject insulin 4 times per day phenazopyridine (Pyridium) 100 mg PO BID PRN 40 days solifenacin (Vesicare) 10 mg PO BID HPI HPI Comments History of Present Illness Details Sancho is a 58-year-old male who presents today to the office for a follow-up. 06/09/2023-- He is followed today for h/o calculus in bladder and BPH. He is a status post Transurethral resection prostate, cystolitholipaxy bladder stone done on 01/05/2023. He has had LUTS of urgency. He states that when he takes vesicrae 10 mg once a day, he still has urgency and dribbling. Patient states that he has increased the dose of Vesicare and to 2 tablets and felt much better with his bladder control. I have discussed with the patient that I will prescribe Vesicare 10 mg BID I am okay with him taking two tablets as long as he does not have side effects of dizziness and headache which he denies any at this time. I have reviewed the PSA results from 11/18/2022 revealed 2.06 ng/mL. 06/09/2023: Evaluation today--UA--Leukoc ytes: negative; blood: negative; protein: 2 +. Post void residual 30 mL 06/09/2023: Plan:Vesicare 10 mg bid. Discussed with the patient that Vesicare may have side effects do include dry mouth. Timed Voiding every 2-3 hours. Follow-up in [address] [facility] Medical History Microscopic hematuria Annual physical exam Hematuria Hyperglycemia DJD (degenerative joint disease) HTN (hypertension) Surgical History History of surgery H/O lumbosacral spine surgery H/O colonoscopy History of dental surgery Family History Father Stroke Diabetes mellitus Mother Diabetes mellitus Overweight History of high blood pressure Brother No problems noted. Brother Cancer Social History Household Members: Family Housing: House Do you presently have visiting nurse or other home services: No Alcohol intake: never Patient Tobacco Use Status: Current everyday Tobacco user Tobacco use type: Cigarette Cigarette Packs Per Day: 0.25 Cigarettes Per Day: 5.0 Years Smoked: long time e-Cigarette/Vaping Use: Currently Using Advance Directives Date on File: 08/18/22 service: No Current occupational status: employed Cognitive needs: No Hearing needs: No Vision needs: Yes Review of Systems Const All systems reviewed & are unremarkable except as noted in HPI and below Reports no additional complaints Eyes Reports no additional complaints ENT Reports no additional complaints Card Reports no additional complaints Resp Reports no additional complaints GI Reports no additional complaints Reports no additional complaints Physical Exam Const General: no acute distress and well developed Orientation/consciousness: patient oriented x3 HEENT Head: Yes normocephalic and Yes atraumatic Eyes Conjunctivae: conjunctivae normal Neck Neck: Yes normal visual inspection Chest Chest palpation & inspection: normal inspection of the chest Resp Effort & Inspection: normal respiratory effort Cardio Rate: regular rate GI Inspection: Yes normal to inspection Skin General skin exam: no rashes or lesions noted Neuro General: patient oriented x3 Psych Appearance: grossly normal Affect: normal affect Office Procedures Post Void Residual Post Residual Void Post Void Residual (PVR): 30 46149-Isct Void Residual by ultrasound Results AMB Urinalysis, Automated UA Leukoctes 0 Tameka/uL Last Edit by VIKTORIA Gagnon on 06/09/23 14:36 UA Nitrite Negative Last Edit by VIKTORIA Gagnon on 06/09/23 14:36 UA Urobilinogen 0.2 mg/dL Last Edit by Chanda Louise, RMA on 06/09/23 14:3 6 UA Protein 100 mg/dL Last Edit by Chanda Louise, RMA on 06/09/23 14:36 UA pH 6.0 Last Edit by Chanda Louise, RMA on 06/09/23 14:36 UA Blood 0 Adonis/uL Last Edit by Chanda Louise, RMA on 06/09/23 14:36 UA Specific [place] 1.025 Last Edit by Chanda Louise, RMA on 06/09/23 14: 36 UA Ketone Negative Last Edit by Chanda Louise, RMA on 06/09/23 14:36 UA Bilirubin 0 mg/dL Last Edit by Chanda Louise, RMA on 06/09/23 14:36 UA Glucose 0 mg/dL Last Edit by Chanda Louise, A on 06/09/23 14:36 Results Reviewed Results Reviewed: Laboratory Last Values Urine pH (Auto) 6.0 06/09/23 14:15 Specific [place] (Auto) 1.025 06/09/23 14:15 Urine Protein (Auto) 100 mg/dL 06/09/23 14:15 Glucose (UA)(Auto) 0 mg/dL 06/09/23 14:15 Urine Ketones (Auto) Negative 06/09/23 14:15 Urine Blood (Auto) 0 Adonis/uL 06/09/23 14:15 Urine Nitrite (Auto) Negative 06/09/23 14:15 Urine Bilirubin (Auto) 0 mg/dL 06/09/23 14:15 Urine Urobilinogen (Auto) 0.2 mg/dL 06/09/23 14:15 Leukocyte Esterase (Auto) 0 Tameka/uL 06/09/23 14:15 Assessment & Plan Assessment & Plan (1) BPH w urinary obs/LUTS: Code(s): N40.1 - Benign prostatic hyperplasia with lower urinary tract symptoms; N13.8 - Other obstructive and reflux uropathy (2) DKA, type 2: Comment: Hospitalized from 08/18 till 08/24 Code(s): E11.10 - Type 2 diabetes mellitus with ketoacidosis without coma (3) Nicotine dependence: Comment: 1/2 PPD , trying to quit Code(s): F17.200 - Nicotine dependence, unspecified, uncomplicated (4) Right kidney stone: Code(s): N20.0 - Calculus of kidney (5) History of bladder stone: Code(s): Z87.448 - Personal history of other diseases of urinary system (6) OAB (overactive bladder): Code(s): N32.81 - Overactive bladder Plan Vesicare 10 mg was ordered. Discussed with the patient that Vesicare may have side effects do include dry mouth. Timed Voiding every 2-3 hours. Follow up Tele-health visit in 2 months. Orders: Orders AMB Post Void Residual by ultrasound 06/09/23 N32.81 - Overactive bladder AMB Urinalysis Automated 06/09/23 Z13.9 - Encounter for screening, unspecified Medications: Changed From solifenacin 10 mg PO DAILY 90 tabs 2RF To solifenacin (Vesicare) 10 mg PO BID 180 tabs 2RF Patient Instructions: The patient had an opportunity to ask questions regarding treatment plan. All questions were answered. Imaging, Laboratory studies and physical exam results were discussed and reviewed in detail. No major barriers to understanding were identified. The patient expressed understanding and agreement with the above treatment plan. The patient is aware they should contact our office by phone for worsening of their current condition or the appearance of new symptoms. Compliance is encouraged with any medications and followup testing that is ordered. It is a privilege to be allowed the opportunity to participate in the urologic care of your patient. If you have any questions or concerns regarding treatment for the above conditions please do not hesitate to contact me. The office telephone contact is [phone]. This note is constructed in part using voice recognition software. While every effort has been made to ensure accuracy hearing aid assistant errors may have been included. Yours sincerely, Alfonso Amos MD Coding Level of Care Code Est Pt Level 4 (04876) Diagnoses BPH w urinary obs/LUTS N40.1; N13.8 DKA, type 2 E11.10 Nicotine dependence F17.200 Right kidney stone N20.0 History of bladder stone Z87.448 OAB (overactive bladder) N32.81 CPT Codes Post Residual Void - PVR CPT Code: 59423-Eozk Void Residual by ultrasound ([id number])
== END 2023-06-09 14:56 | disposition home or self-care (01) ==
PROVIDERS: PCP Internal Medicine; Visit Provider Urology
DX: N40.1 Benign prostatic hyperplasia with lower urinary tract symptoms (principal); N13.8 Other obstructive and reflux uropathy; E11.10 Type 2 diabetes mellitus with ketoacidosis without coma; F17.200 Nicotine dependence, unspecified, uncomplicated; N20.0 Calculus of kidney; Z87.448 Personal history of other diseases of urinary system; N32.81 Overactive bladder
CPT/HCPCS: 99214

== ENCOUNTER → 2023-06-09 14:00 | Outpatient (BNVA) | payer OTHER, SELFPAY | PROVIDERS: PCP Internal Medicine; Visit Provider Urology | DX: N40.1 Benign prostatic hyperplasia with lower urinary tract symptoms (principal); N13.8 Other obstructive and reflux uropathy; E11.10 Type 2 diabetes mellitus with ketoacidosis without coma; N20.0 Calculus of kidney; N32.81 Overactive bladder; F17.200 Nicotine dependence, unspecified, uncomplicated; Z87.448 Personal history of other diseases of urinary system | CPT/HCPCS: 51798; 81003; 99212 ==

== ENCOUNTER 2023-07-01 09:00 | Outpatient (REF) | payer OTHER, SELFPAY ==
[2023-07-01 14:02] LABS: Creatinine Urine 209.99 mg/dL
== END 2023-07-01 09:01 | disposition home or self-care (01) ==
LOC: HO.HMGCLNP 09:00
PROVIDERS: PCP Internal Medicine; Visit Provider Internal Medicine
DX: E11.9 Type 2 diabetes mellitus without complications (principal); I10 Essential (primary) hypertension
CPT/HCPCS: 82043; 82570

== ENCOUNTER 2023-07-01 10:00 | Outpatient (AMB) | payer OTHER, SELFPAY ==
[2023-07-01 10:06] VITALS: BP 158/90; PULSE 63; O2SAT 99; BMI 32.9
--- NOTE | 2023-07-01 10:06 | MHC.PC.OV ---
Vital Signs 07/01/23 10:06 Height 5 ft 7 in Weight 210 lb BMI 32.9 BP 158/90 H Blood Pressure Location Lt brachial Position Sitting Pulse 63 Pulse Source Pulse Oximeter Pulse Oximetry (%) 99 Oxygen Delivery Method Room Air Intake Visit Reasons: 3 month fu+ NEEDS PHQ9+THRIVE Intake Note: Pt is here today for 3 months follow up visit. Allergies oxycodone [Percocet] Allergy (Intermediate, Verified 07/01/23 10:07) hives tramadol Allergy (Intermediate, Verified 07/01/23 10:07) hives Medication List - Last Reconciled 07/01/23 by Bridgette Coburn MD albuterol sulfate 90 mcg/actuation 1 inh inhalation QID PRN amlodipine 10 mg PO DAILY ammonium lactate 12% 1 appl topical DAILY PRN blood pressure test kit-large As directed blood sugar diagnostic (FreeStyle Lite Strips) As directed blood-glucose meter (FreeStyle Lite Meter kit) As directed lancets As directed lidocaine 5% 1 patch topical DAILY PRN metformin 1,000 mg PO BID pen needle, diabetic As directed to inject insulin 4 times per day phenazopyridine (Pyridium) 100 mg PO BID PRN 40 days solifenacin (Vesicare) 10 mg PO BID Tobacco use date assessed: 07/01/23 HPI 3 month fu+ NEEDS PHQ9+THRIVE HPI Details Pt presents for f/u HTN, DM 2. Patient reports significantly improved blood glucose readings down to a less than 120 in the mornings. [facility] Medical History Microscopic hematuria Annual physical exam Hematuria Hyperglycemia DJD (degenerative joint disease) HTN (hypertension) Surgical History History of surgery H/O lumbosacral spine surgery H/O colonoscopy History of dental surgery Family History Father Stroke Diabetes mellitus Mother Diabetes mellitus Overweight History of high blood pressure Brother No problems noted. Brother Cancer Social History Household Members: Family Housing: House Do you presently have visiting nurse or other home services: No Alcohol intake: never Patient Tobacco Use Status: Current everyday Tobacco user Tobacco use type: Cigarette Cigarette Packs Per Day: 0.25 Cigarettes Per Day: 5.0 Years Smoked: long time e-Cigarette/Vaping Use: Currently Using Advance Directives Date on File: 08/18/22 service: No Current occupational status: employed Cognitive needs: No Hearing needs: No Vision needs: Yes Questionnaire PHQ-9 Over the last 2 weeks, how often have you been bothered by any of the following problems? 1. Little interest or pleasure in doing things: not at all 2. Feeling down, depressed, or hopeless: not at all 3. Trouble falling or staying asleep, or sleeping too much: not at all 4. Feeling tired or having little energy: not at all 5. Poor appetite or overeating: not at all 6. Feeling bad about yourself - or that you are a failure or have let yourself or your family down: not at all 7. Trouble concentrating on things, such as reading the newspaper or watching television: not at all 8. Moving or speaking so slowly that other people could have noticed. Or the opposite - being so fidgety or restless that you have been moving around a lot more than usual: not at all 9. Thoughts that you would be better off or of hurting yourself in some way: not at all Total score: 0 Depression Screening Interpretation: Negative Depression Screening Done: Yes Source: Developed by Drs. Radames Bravo, Lisset Sinclair, Tapan Haile and colleagues, with an educational nancy from [employer]. Thrive Questionnaire Date Thrive assessed: 07/01/23 I am a: Patient What is your living situation today?: I have a steady place to live Within the past 12 months, did the food you bought not last and you didn't have the money to get more?: Never true Within the past 12 months, did you worry whether your food would run out before you got money to buy more?: Never true Do you have trouble paying for medicines?: No Do you have trouble getting transportation to medical appointments?: No Do you have trouble paying your heating and electricity bill?: No Do you have trouble taking care of your child, family member or friend?: No Do you have trouble with day-to-day activities such as bathing, preparing meals, shopping, managing finances, etc.?: No Are you currently unemployed and looking for a job?: No Are you interested in more education?: No Please select the resources that you would like help with: None Currently or been in a relationship where the following occur: no concerns reported SUNIL-7 AMB Questionnaire SUNIL-7 Date SUNIL - 7 assessed: 07/01/23 Feeling nervous, anxious, or on edge: 0 = Not at all Not being able to stop or control worryin = Not at all Worrying too much about different things: 0 = Not at all Trouble relaxin = Not at all Being so restless that it is hard to sit still: 0 = Not at all Becoming easily annoyed or irritable: 0 = Not at all Feeling afraid as if something awful might happen: 0 = Not at all Total SUNIL-7 score (0-4 normal; 5-9 mild; 10-14 moderate; 15-21 severe): 0 Source: Developed by Drs. Radames Bravo, Lisset Sinclair, Tapan Haile and colleagues, with an educational nancy from [employer]. Review of Systems Const All systems reviewed & are unremarkable except as noted in HPI and below Reports no additional complaints Eyes Reports no additional complaints ENT Reports no additional complaints Card Reports no additional complaints Resp Reports no additional complaints GI Reports no additional complaints Physical exam (Primary Care) Vital Signs: Last Vital Signs Pulse 63 07/01/23 10:06 BP 158/90 H 07/01/23 10:06 Pulse Ox 99 07/01/23 10:06 Oxygen Delivery Method Room Air 07/01/23 10:06 BMI result Body Mass Index 32.9 Tobacco/Smoking Status: Tobacco use Status Tobacco use date assessed 07/01/23 07/01/23 10:10 Patient Tobacco Use Status Current everyday Tobacco 07/01/23 10:10 Tobacco use type Cigarette 07/01/23 10:10 e-Cigarette/Vaping Use Currently Using 07/01/23 10:10 PHQ-9: PHQ-9 Score PHQ-9: Total score 0 07/01/23 10:10 Depression Screening Interpretation: Negative Thrive Assessment: Date of Thrive Assessment Date Thrive assessed 07/01/23 07/01/23 10:12 Currently or been in a relationship where the following occur: no concerns reported Const General: no acute distress HENMT Head: Yes normal to inspection Ears: hearing grossly normal bilaterally Mouth: Normal oral and palatal mucosa present Neck Neck: Yes supple Resp Effort & Inspection: normal respiratory effort Auscultation: clear to auscultation bilaterally Cardio Rhythm: regular rhythm Heart sounds: S1 normal heart sound present and S2 normal heart sound present GI Inspection: Yes normal to inspection Palpation (GI): Soft to palpation Percussion: Yes normal to percussion Auscultation: normal bowel sounds Assessment and Plan Assessment & Plan (1) Diabetes type 2, controlled: Code(s): E11.9 - Type 2 diabetes mellitus without complications Plan: A1c is down to 5.9, continue ADA diet increase physical activity continue metformin. Patient follows up with wound nurse every 3 months (2) Nicotine dependence: Comment: 1/2 PPD , trying to quit Code(s): F17.200 - Nicotine dependence, unspecified, uncomplicated Plan: Tobacco quitting discussed with the patient (3) HTN (hypertension): Code(s): I10 - Essential (primary) hypertension Qualifiers: Hypertension type: essential hypertension Qualified Code(s): I10 - Essential (primary) hypertension Plan: Blood pressure is elevated and olmesartan 20 mg daily will be added to Amlodipine, regular exercise weight lost increase physical activity discussed with the patient. Check comprehensive panel in 2 weeks and follow-up in 1 month. Patient is due for colonoscopy will be referred to GI Orders: Orders Comprehensive [place]. Panel Fast 2 Weeks E11.9 - Type 2 diabetes mellitus without complications, F17.200 - Nicotine dependence, unspecified, uncomplicated, I10 - Essential (primary) hypertension Complete Blood Count Auto Diff 2 Weeks E11.9 - Type 2 diabetes mellitus without complications, F17.200 - Nicotine dependence, unspecified, uncomplicated, I10 - Essential (primary) hypertension Referrals Gastroenterology Referral Z00.00 - Encounter for general adult medical examination without abnormal findings Medications: New ammonium lactate 12% 1 appl topical DAILY PRN 385 grams 1RF dry skin olmesartan 20 mg PO DAILY 30 tabs 1RF Coding Level of Care Code Est Pt Level 4 (02822) Diagnoses Diabetes type 2, controlled E11.9 Nicotine dependence F17.200 Essential hypertension I10 Hypertension type: essential hypertension
== END 2023-07-01 10:48 | disposition home or self-care (01) ==
PROVIDERS: PCP Internal Medicine; Visit Provider Internal Medicine
DX: E11.9 Type 2 diabetes mellitus without complications (principal); F17.210 Nicotine dependence, cigarettes, uncomplicated; I10 Essential (primary) hypertension; Z98.890 Other specified postprocedural states
CPT/HCPCS: 99214

== ENCOUNTER 2023-09-02 10:01 | Outpatient (AMB) | payer OTHER, SELFPAY ==
--- NOTE | 2023-09-02 10:34 | A.OFFVIS_ITS ---
Intake Intake Visit Reasons: 30 min/CONFIRMED [employer] Required: No Accompanied by: Self / Same As Patient Allergies oxycodone [Percocet] Allergy (Intermediate, Verified 07/01/23 10:07) hives tramadol Allergy (Intermediate, Verified 07/01/23 10:07) hives HPI Comprehensive Diabetes Asmnt Most Recent Diabetes Results: Hemoglobin A1c 6.2 % 03/20/20 Microalb/Creat Ratio 19.0 ug/mg cr (<30) 07/01/23 Cholesterol 177 mg/dL (<200) 06/04/23 HDL Cholesterol 35 mg/dL (>40) L 06/04/23 Triglycerides 121 mg/dL (<150) 06/04/23 Creatinine 0.97 mg/dL (0.5-1.4) 06/04/23 Blood Urea Nitrogen 12 mg/dL (9-16) 06/04/23 Sodium 143 mmol/L (135-145) 06/04/23 Potassium 4.0 mmol/L (3.3-5.1) 06/04/23 Chloride 106 mmol/L (96-108) 06/04/23 Carbon Dioxide 32 mmol/L (22-29) H 06/04/23 Calcium 9.5 mg/dL (8.4-10.2) 06/04/23 AST 18 U/L (5-37) 06/04/23 ALT 15 U/L (0-40) 06/04/23 Total Protein 7.1 g/dL (6.5-8.0) 06/04/23 Albumin 4.3 g/dL (3.5-5.0) 06/04/23 [facility] Medical History Microscopic hematuria Annual physical exam Hematuria Hyperglycemia DJD (degenerative joint disease) HTN (hypertension) Surgical History History of surgery H/O lumbosacral spine surgery H/O colonoscopy History of dental surgery Family History Father Stroke Diabetes mellitus Mother Diabetes mellitus Overweight History of high blood pressure Brother No problems noted. Brother Cancer Social History Household Members: Family Housing: House Do you presently have visiting nurse or other home services: No Alcohol intake: never Patient Tobacco Use Status: Current everyday Tobacco user Tobacco use type: Cigarette Cigarette Packs Per Day: 0.25 Cigarettes Per Day: 5.0 Years Smoked: long time e-Cigarette/Vaping Use: Currently Using Advance Directives Date on File: 08/18/22 service: No Current occupational status: employed Cognitive needs: No Hearing needs: No Vision needs: Yes Assessment & Plan Assessment & Plan (1) DKA, type 2: Comment: Hospitalized from 08/18 till 08/24 Code(s): E11.10 - Type 2 diabetes mellitus with ketoacidosis without coma Plan: Learning objectives: The patient was provided with verbal and written education on the following topics as outlined below. The patient met all learning objectives and was able to verbalize understanding and provide teach back of education topics discussed . The patient was provided with the opportunity to ask questions and all questions were answered. Patient Assessment Assess patient education level/literacy/barriers Patient questions/concerns, Pt is due for next A1c. He did not bring his meter, patient reports he has not tested his glucose in the year. Last A1c in 05/2023 was 5.9% Exercise Medical clearance Effect of exercise on blood sugar Start slowly and gradually increase pace/duration over time Goal amount of exercise Checking blood glucose/have a source of carbs with you Medications (If applicable) * Name of medication * Dosing/administration instructions * Mechanism of action * Potential side effects * Potential adverse reaction and appropriate treatment * Review onset, peak, duration Assess for concerns re: insurance coverage, cost, barriers to compliance Insulin/Injectables (If applicable) * Storage/care of insulin * Injection sites * Site rotation * Onset, peak, duration * Drawing up insulin * Injecting insulin/other injectables * Sharps disposal Continuous blood glucose monitoring (if applicable) Hypoglycemia and Hyperglycemia * Signs and symptoms * Causes * Treatment * Preventing hypoglycemia * When to seek medical attention Medical alert bracelet Lifestyle * Work * Travel * Stress management * Problem solving Know your goals * A1C * Blood sugar targets * Blood pressure * Cholesterol/LDL Urine microalbumin Smart Goal Assessment: Pt met goal:Pt had A1c drawn after last Diabetes Education visit All of the time/100%: New Goal:? Patient will scheduled diabetes eye exam Educational Materials: The patient was provided with the following written educational materials: Patient Response to instructions: Comprehension of Instructions: Readiness to make changes: How confident they feel about making changes: Patient Instructions: Include regular daily activity. ADA recommends 30 minutes of exercise 5 days a week. Weight loss talk to PCP or [employer] before starting new plan. Test blood sugar as directed; Fasting and 2hpp largest meal. Watch trends in results. Utilize results and to assess how food, physical activity and medications affect blood sugar results. Bring glucometer or CGM to next visit. Be knowledgeable about diabetes medication, its action, side effects, efficacy, toxicity, prescribed dosage, appropriate timing and frequency of administration, effect of missed and delayed doses and instructions for storage, travel and safety. Problem solving techniques to monitor hypo/hyperglycemia episodes and treatments. Reduce risk reduction behaviors, smoking cessation, regular eye, foot and dental examinations. Coding Level of Care Code Est Pt Level 1 (74287) Diagnoses DKA, type 2 E11.10
== END 2023-09-02 10:38 | disposition home or self-care (01) ==
PROVIDERS: Visit Provider Registered Nurse Diabetes Educator
DX: E11.10 Type 2 diabetes mellitus with ketoacidosis without coma (principal)

== ENCOUNTER → 2023-09-02 10:01 | Outpatient (BNVA) | payer OTHER, SELFPAY | PROVIDERS: Visit Provider Registered Nurse Diabetes Educator | DX: E11.10 Type 2 diabetes mellitus with ketoacidosis without coma (principal) | CPT/HCPCS: 99211 ==

== ENCOUNTER 2023-10-22 14:22 | Outpatient (AMB) | payer OTHER, SELFPAY ==
[2023-10-22 14:24] VITALS: BP 128/82; PULSE 67; O2SAT 97; BMI 33.2
--- NOTE | 2023-10-22 14:24 | MHC.PC.OV ---
Vital Signs 10/22/23 14:24 Height 5 ft 7 in Weight 212 lb BMI 33.2 BP 128/82 Blood Pressure Location Rt brachial Position Sitting Pulse 67 Pulse Source Pulse Oximeter Pulse Oximetry (%) 97 Oxygen Delivery Method Room Air Intake Visit Reasons: follow up DM Intake Note: Pt is here today for a follow up visit on DM. Allergies oxycodone [Percocet] Allergy (Intermediate, Verified 10/22/23 14:26) hives tramadol Allergy (Intermediate, Verified 10/22/23 14:26) hives Medication List - Last Reconciled 10/22/23 by Bridgette Coburn MD albuterol sulfate 90 mcg/actuation 1 inh inhalation QID PRN amlodipine 10 mg PO DAILY ammonium lactate 12% 1 appl topical DAILY PRN blood pressure test kit-large As directed blood sugar diagnostic (FreeStyle Lite Strips) As directed blood-glucose meter (FreeStyle Lite Meter kit) As directed lancets As directed lidocaine 5% 1 patch topical DAILY PRN metformin 1,000 mg PO BID olmesartan 20 mg PO DAILY pen needle, diabetic As directed to inject insulin 4 times per day phenazopyridine (Pyridium) 100 mg PO BID PRN 40 days solifenacin (Vesicare) 10 mg PO BID Tobacco use date assessed: 10/22/23 Dental Screening Dental Screen Date: 10/22/23 Did you have a dental visit in the last 12 months?: Yes Did you have a dental problem in the last 6 months where you did not have access to dental care?: No Was dental information given to patient?: Patient has dentist HPI follow up DM HPI Details Patient presents For the follow-up of hypertension and hyperlipidemia. He ran out of his medications. Patient denies chest pain shortness for breath headaches [facility] Medical History (Updated 10/22/23 @ 15:10 by Bridgette Coburn MD) Microscopic hematuria Annual physical exam DJD (degenerative joint disease) HTN (hypertension) Surgical History History of surgery H/O lumbosacral spine surgery H/O colonoscopy History of dental surgery Family History Father Stroke Diabetes mellitus Mother Diabetes mellitus Overweight History of high blood pressure Brother No problems noted. Brother Cancer Social History Household Members: Family Housing: House Do you presently have visiting nurse or other home services: No Alcohol intake: never Patient Tobacco Use Status: Current everyday Tobacco user Tobacco use type: Cigarette Cigarette Packs Per Day: 0.25 Cigarettes Per Day: 5.0 Years Smoked: long time e-Cigarette/Vaping Use: Currently Using Advance Directives Date on File: 08/18/22 service: No Current occupational status: employed Cognitive needs: No Hearing needs: No Vision needs: Yes Questionnaire PHQ-9 Over the last 2 weeks, how often have you been bothered by any of the following problems? 1. Little interest or pleasure in doing things: not at all 2. Feeling down, depressed, or hopeless: not at all 3. Trouble falling or staying asleep, or sleeping too much: not at all 4. Feeling tired or having little energy: not at all 5. Poor appetite or overeating: not at all 6. Feeling bad about yourself - or that you are a failure or have let yourself or your family down: not at all 7. Trouble concentrating on things, such as reading the newspaper or watching television: not at all 8. Moving or speaking so slowly that other people could have noticed. Or the opposite - being so fidgety or restless that you have been moving around a lot more than usual: not at all 9. Thoughts that you would be better off or of hurting yourself in some way: not at all Total score: 0 Depression Screening Interpretation: Negative Depression Screening Done: Yes Source: Developed by Drs. Radames Bravo, Lisset Sinclair, Tapan Haile and colleagues, with an educational nancy from [employer]. Thrive Questionnaire Date Thrive assessed: 10/22/23 I am a: Patient What is your living situation today?: I have a steady place to live Within the past 12 months, did the food you bought not last and you didn't have the money to get more?: Never true Within the past 12 months, did you worry whether your food would run out before you got money to buy more?: Never true Do you have trouble paying for medicines?: No Do you have trouble getting transportation to medical appointments?: No Do you have trouble paying your heating and electricity bill?: No Do you have trouble taking care of your child, family member or friend?: No Do you have trouble with day-to-day activities such as bathing, preparing meals, shopping, managing finances, etc.?: No Are you currently unemployed and looking for a job?: No Are you interested in more education?: No Please select the resources that you would like help with: None THRIVE Score: 0 AUDIT C Alcohol Use Questionnaire (AUDIT-C) 1. How often do you have a drink containing alcohol?: Never 3. How often do you have six or more drinks on one occasion?: Never Total Score: 0 SUNIL-7 AMB Questionnaire SUNIL-7 Date SUNIL - 7 assessed: 10/22/23 Feeling nervous, anxious, or on edge: 0 = Not at all Not being able to stop or control worryin = Not at all Worrying too much about different things: 0 = Not at all Trouble relaxin = Not at all Being so restless that it is hard to sit still: 0 = Not at all Becoming easily annoyed or irritable: 0 = Not at all Feeling afraid as if something awful might happen: 0 = Not at all Total SUNIL-7 score (0-4 normal; 5-9 mild; 10-14 moderate; 15-21 severe): 0 Source: Developed by Drs. Radames Bravo, Lisset Sinclair, Tapan Haile and colleagues, with an educational nancy from [employer]. Review of Systems Const All systems reviewed & are unremarkable except as noted in HPI and below ENT Reports no additional complaints Card Reports no additional complaints Resp Reports no additional complaints GI Reports no additional complaints Reports no additional complaints Physical exam (Primary Care) Vital Signs: Last Vital Signs Pulse 67 10/22/23 14:24 BP 128/82 10/22/23 14:24 Pulse Ox 97 10/22/23 14:24 Oxygen Delivery Method Room Air 10/22/23 14:24 BMI result Body Mass Index 33.2 Tobacco/Smoking Status: Tobacco use Status Tobacco use date assessed 10/22/23 10/22/23 14:29 Patient Tobacco Use Status Current everyday Tobacco 10/22/23 14:29 Tobacco use type Cigarette 10/22/23 14:29 e-Cigarette/Vaping Use Currently Using 10/22/23 14:29 PHQ-9: PHQ-9 Score PHQ-9: Total score 0 10/22/23 14:33 Depression Screening Interpretation: Negative Thrive Assessment: Date of Thrive Assessment Date Thrive assessed 10/22/23 10/22/23 14:33 Const General: no acute distress HENMT Throat: Yes posterior oropharynx normal Resp Effort & Inspection: normal respiratory effort Auscultation: clear to auscultation bilaterally Cardio Rhythm: regular rhythm Heart sounds: S1 normal heart sound present and S2 normal heart sound present Assessment and Plan Assessment & Plan (1) HTN (hypertension): Code(s): I10 - Essential (primary) hypertension Qualifiers: Hypertension type: essential hypertension Qualified Code(s): I10 - Essential (primary) hypertension Plan: Patient will restart olmesartan and amlodipine return for fasting blood work and will follow-up in 1 month (2) DKA, type 2: Comment: Hospitalized from 08/18 till 08/24, acute renal failure due to nephrolithiasis Code(s): E11.10 - Type 2 diabetes mellitus with ketoacidosis without coma (3) Diabetes type 2, controlled: Code(s): E11.9 - Type 2 diabetes mellitus without complications Plan: Continue metformin , ADA diet discussed with the patient he was advised to monitor his fasting glucose and follow-up in 1 month (4) Bladder stones: Comment: f/u urology Code(s): N21.0 - Calculus in bladder (5) Nicotine dependence: Comment: 1/2 PPD , trying to quit Code(s): F17.200 - Nicotine dependence, unspecified, uncomplicated Plan: Tobacco quitting discussed with the pt (6) Microscopic hematuria: Comment: Follow-up with urology Code(s): R31.29 - Other microscopic hematuria Orders: Orders Comprehensive [place]. Panel Fast 1 Month E11.10 - Type 2 diabetes mellitus with ketoacidosis without coma, E11.9 - Type 2 diabetes mellitus without complications, I10 - Essential (primary) hypertension Complete Blood Count Auto Diff 1 Month E11.10 - Type 2 diabetes mellitus with ketoacidosis without coma, E11.9 - Type 2 diabetes mellitus without complications, I10 - Essential (primary) hypertension Hemoglobin A1c 1 Month E11.10 - Type 2 diabetes mellitus with ketoacidosis without coma, E11.9 - Type 2 diabetes mellitus without complications, I10 - Essential (primary) hypertension Lipid Panel 1 Month E11.10 - Type 2 diabetes mellitus with ketoacidosis without coma, E11.9 - Type 2 diabetes mellitus without complications, I10 - Essential (primary) hypertension Microalbumin, Random (w Creat) 1 Month E11.10 - Type 2 diabetes mellitus with ketoacidosis without coma, E11.9 - Type 2 diabetes mellitus without complications, I10 - Essential (primary) hypertension Medications: Refilled amlodipine 10 mg PO DAILY 90 tabs 3RF I10 - Essential (primary) hypertension olmesartan 20 mg PO DAILY 90 tabs 1RF Discontinued phenazopyridine (Pyridium) Discontinued Reason: Duplicate 100 mg PO BID 40 days PRN 40 tabs 0RF pain solifenacin (Vesicare) Discontinued Reason: Doctor's Order 10 mg PO BID 180 tabs 2RF Coding Level of Care Code Est Pt Level 4 (58198) Diagnoses Essential hypertension I10 Hypertension type: essential hypertension DKA, type 2 E11.10 Diabetes type 2, controlled E11.9 Bladder stones N21.0 Nicotine dependence F17.200 Microscopic hematuria R31.29
== END 2023-10-22 15:05 | disposition home or self-care (01) ==
PROVIDERS: Visit Provider Internal Medicine
DX: I10 Essential (primary) hypertension (principal); E11.10 Type 2 diabetes mellitus with ketoacidosis without coma; N21.0 Calculus in bladder; F17.210 Nicotine dependence, cigarettes, uncomplicated; R31.29 Other microscopic hematuria
CPT/HCPCS: 99214

== ENCOUNTER 2024-01-06 07:35 | Emergency (ER) | payer OTHER, SELFPAY ==
--- NOTE | ~2024-01-06 | CT_ITS ---
EXAMINATION: CT ABDOMEN AND PELVIS WITH CONTRAST CLINICAL INFORMATION: Epigastric pain and right upper quadrant pain with elevated lipase COMPARISON: Ultrasound abdomen 01/06/2024, CT abdomen pelvis 07/10/2022 TECHNIQUE: Multidetector volumetric images were obtained from the superior aspect of the liver through the pubic symphysis following administration 85 mL of Omnipaque 350 intravenous contrast. Sagittal and coronal reformatted images were obtained on the technologist's workstation. Oral contrast: No This CT examination was performed using dose optimization techniques as appropriate, variously including the following: *Automated exposure control *Adjustment of mA and/or kV according to patient size (this includes techniques or standardized protocols for targeted exams where dose is matched to indication/reason for exam; i.e. extremities or head) *Use of iterative reconstruction technique DLP: 664 mGy-cm FINDINGS: LUNG BASES: The heart is mildly enlarged. The visualized lung bases are otherwise unremarkable. LIVER, GALLBLADDER, AND BILIARY TREE: The liver is enlarged at 17.9 cm in cephalocaudad dimension with attenuation consistent with hepatic steatosis with some focal fatty sparing around the gallbladder.. Subtle 1.2 cm mass seen in the left lobe of the liver is unchanged and likely a hemangioma (3:11 compare prior 6:9). No other focal hepatic lesion or biliary ductal dilatation is present. Punctate granuloma is present in the right lobe of the liver The gallbladder is unremarkable with no evidence of radiopaque gallstones, gallbladder wall thickening, or obvious pericholecystic inflammatory changes. PANCREAS: There are new mild edematous changes surrounding the pancreatic head and uncinate process with adjacent edema of the second and third portions of the duodenum with a tiny amount of surrounding fluid. No drainable fluid collections are seen. The pancreatic body and tail are unremarkable. No ductal dilatation or pancreatic calcifications seen. SPLEEN: Unremarkable. ADRENAL GLANDS: Some minimal nodularity of the left adrenal gland is unchanged. KIDNEYS AND URETERS: The kidneys are normal in size, shape, and attenuation. Again seen is a nonobstructing 3 mm calculus in the right mid kidney (3:27). No hydronephrosis, hydroureter, or additional calculi seen. No perinephric stranding. BLADDER: Unremarkable. Previously seen large bladder calculus is no longer present. GASTROINTESTINAL TRACT: The small and large bowel are unremarkable. The appendix is unremarkable. ABDOMINAL WALL: No significant hernia is appreciated. Tiny periumbilical hernia seen containing only fat. LYMPH NODES: Normal. VASCULAR: Unremarkable. PELVIC VISCERA: Moderate BPH present. Seminal vesicles appear normal. OSSEOUS STRUCTURES: Unremarkable. CT/CT abdomen pelvis w IV con IMPRESSION: 1. New mild edematous changes surrounding the pancreatic head and uncinate process with adjacent edema of the second and third portions of the duodenum. Findings are consistent with acute pancreatitis. 2. Incidental note made of mild cardiomegaly, enlarged fatty liver with stable 1.2 cm mass in the left lobe of the liver, stable nonobstructing 3 mm right renal calculus and moderate BPH. Fleischner guidelines were followed.
--- NOTE | ~2024-01-06 | US_ITS ---
EXAMINATION: US ABDOMEN LIMITED CLINICAL INFORMATION: Right upper quadrant pain. COMPARISON: CT abdomen pelvis 07/10/2022 TECHNIQUE: Real-time imaging of the gallbladder and common bile. FINDINGS: GALLBLADDER: The gallbladder is physiologically distended without evidence of stones, sludge, polyps or wall thickening. A small amount of pericholecystic fluid is seen. Hopson's sign is negative COMMON BILE DUCT: Normal in caliber measuring 0 point cm in diameter. US/US abdomen limited IMPRESSION: No evidence of cholelithiasis. A small amount of pericholecystic fluid is seen.
[2024-01-06 07:38] VITALS: BP 181/93; PULSE 68; RESP 16; TEMP 36; O2SAT 97; BMI 33.0
--- NOTE | 2024-01-06 08:05 | ED.ABDPAIN ---
HPI - Abdominal Pain General Chief Complaint: Abdominal Pain Stated Complaint: Abd pain 5 days Time Seen by Provider: 01/06/24 07:52 Source: patient and old records reviewed Mode of arrival: ambulatory Limitations: no limitations History of Present Illness ED Provider: ROSLYN HPI narrative: 58 yo male with PMH of kidney stones, overactive bladder, HTN, DM but stopped taking metformin due to GI distress, does not take daily NSAIDs but here with 4 days of RUQ and epigastric pain worse with eating and nausea. He notes he cannot get comfortable and tried pepto without relief. Pain is worse at night when at work. He has never had PUD before and denies black or bloody stools MD elicited complaint: abdominal pain Pertinent past history: none Onset (ago): day(s) (4) Pain Consistency: constant Location: epigastric and RUQ Severity: moderate Quality: aching Radiation: none Migration to: no migration Exacerbating factors: eating Relieving factors: nothing Associated symptoms: nausea Treatments prior to arrival: antacids Related Data Home Medications ?Medication ?Instructions ?Recorded ?Confirmed ibuprofen 600 mg tablet 600 mg PO DAILY PRN Pain 01/06/24 01/06/24 Previous Rx's ?Medication ?Instructions ?Recorded blood pressure test kit-large #1 ea 09/20/20 blood sugar diagnostic (FreeStyle #100 ea 08/23/22 Lite Strips) blood-glucose meter (FreeStyle #1 ea 08/23/22 Lite Meter kit) lancets 17 gauge #200 ea 08/23/22 pen needle, diabetic 32 gauge x #400 ea 10/15/22 olmesartan 20 mg tablet 20 mg PO DAILY #90 tabs 10/22/23 morphine 15 mg immediate release 15 mg PO Q6H PRN pain #15 tabs 01/06/24 tablet omeprazole 20 mg capsule,delayed 20 mg PO DAILY #14 caps 01/06/24 release ondansetron 4 mg disintegrating 4 mg PO Q8H PRN nausea and 01/06/24 tablet vomiting #20 tabs Allergies Allergy/AdvReac Type Severity Reaction Status Date / Time oxycodone [Percocet] Allergy Intermediate hives Verified 01/06/24 07:40 tramadol Allergy Intermediate hives Verified 01/06/24 07:40 Review of Systems Review of Systems Constitutional : No Weight loss, No Fever, No Chills ENT/Mouth : No sore throat, No Rhinorrhea Eyes: No Swelling, No Redness Cardiovascular : No Chest Pain, No SOB, NoEdema Respiratory : No Cough, No Sputum, No Wheezing Gastrointestinal : Positive Nausea, no Vomiting, no Diarrhea, positive abdominal Pain, No Hematochezia, No Melena Genitourinary : No Dysuria, No Urinary Frequency, No Hematuria, No Urgency Musculoskeletal : No joint pain, No Myalgias, No Joint Swelling Skin : No Skin Lesions, No rash Neuro : No Weakness, No Numbness, No Dizziness, No Headache All other systems reviewed and are negative. [facility] Past Medical History Attestation statement: The following information was validated with the patient. Source: old records reviewed Medical History Microscopic hematuria Annual physical exam DJD (degenerative joint disease) HTN (hypertension) Surgical History History of surgery H/O lumbosacral spine surgery H/O colonoscopy History of dental surgery Family History Family History Father Stroke Diabetes mellitus Mother Diabetes mellitus Overweight History of high blood pressure Brother No problems noted. Brother Cancer Social History Social History Household Members: Family Housing: House Do you presently have visiting nurse or other home services: No Alcohol intake: never Patient Tobacco Use Status: Current everyday Tobacco user Tobacco use type: Cigarette Cigarette Packs Per Day: 0.25 Cigarettes Per Day: 5.0 Years Smoked: long time Smoked in Last 30 Days: No e-Cigarette/Vaping Use: Currently Using Advance Directives: Yes Advance Directives on File: Yes Advance Directives Date on File: 08/18/22 service: No Current occupational status: employed Cognitive needs: No Hearing needs: No Vision needs: Yes Physical Exam ED Vital Signs: Vital Signs - 24 hr 01/06/24 07:38 01/06/24 08:28 01/06/24 10:00 Temperature 96.8 F 98.5 F 97.9 F Pulse Rate 68 63 57 Respiratory Rate 16 18 18 Blood Pressure 181/93 H 185/92 H 173/89 H Pulse Oximetry 97 96 Oxygen Delivery Method Room Air Room Air BMI result Body Mass Index 33.0 Appearance: Alert. Oriented X3. No acute distress. Eyes: Pupils equal, round and reactive to light. ENT: Pharynx normal. Neck: Normal inspection. Neck supple. CVS: Normal heart rate and rhythm. Pulses normal. Respiratory: No respiratory distress. Breath sounds normal. Abdomen: Soft and mild ttp in epigatric and moderate ttp in RUQ + maurer's sign Skin: Skin warm and dry. Normal skin color. Normal skin turgor. Extremities: No lower extremity edema. No calf ttp Neuro: Oriented X 3. No motor deficit. No sensory deficit. Course Course Course Narrative: seen by hospitalist and patient wants to go home at this time Medical Decision Making Medical Decision Making MDM Narrative: 58 yo male with PMH of kidney stones, overactive bladder, HTN, DM here with c/o epigastric and RUQ pain at this time denies NSAID use or GIB symptoms will need basic labs, IVF, protonix and obtain US to look at the gallbladder. Differential Diagnosis Differential Diagnoses: The differential diagnosis associated with the presentation includes gastritis, PUD, pancreatitis, biliary colic Admission/Observation Consideration of admission/observation: Escalation of care including admission/observation considered given CT scan and pain nausea will admit for further workup offered and declined admission Consult Healthcare Provider Management of the patient was discussed with: Hospitalist (will admit) Lab Data [facility] Lab Attestation statement: I reviewed the patient's lab results. 01/06/24 08:11 01/06/24 08:11 Labs: Lab Results 01/06/24 01/06/24 01/06/24 Range/Units 08:07 08:11 09:39 WBC 15.9 H (4.8-10.8) X10*3/uL RBC 5.39 (4.60-5.80) X10*6/uL Hgb 14.5 (14.0-18.0) g/dl Hct 42.6 (42.0-52.0) % MCV 79.0 L (80.0-98.0) fL MCH 26.9 L (27.0-33.0) pg MCHC 34.0 (31.0-36.0) g/dl RDW 14.5 (11.0-16.0) % Plt Count 246 (160-400) X10*3/uL MPV 10.9 (9.4-12.4) fL Immature Gran % (Auto) 0.3 (0.0-0.4) % Neut % (Auto) 77.4 H (45-73) % Lymph % (Auto) 13.4 L (20-40) % [place] % (Auto) 8.1 (2-11) % Eos % (Auto) 0.5 (0-4) % Baso % (Auto) 0.3 (0-2) % Lymph # (Auto) 2.1 (1.2-4.9) X10*3/uL [place] # (Auto) 1.3 H (0.1-1.2) X10*3/uL Eos # (Auto) 0.1 (0.0-0.4) X10*3/uL Baso # (Auto) 0.0 (0.0-0.2) X10*3/uL Abs Immat Gran (auto) 0.05 H (0.00-0.03) X10*3/uL Absolute Neuts (auto) 12.3 H (2.0-8.3) x10*3/uL Absolute Nucleated RBC 0.000 (0.0-0.012) X10*3/uL Nucleated RBC % (auto) 0.0 (0.0-0.2) /100WBC Sodium 143 (135-145) mmol/L Potassium 3.8 (3.3-5.1) mmol/L Chloride 107 (96-108) mmol/L Carbon Dioxide 28 (22-29) mmol/L Anion Gap 12 (12-20) BUN 15 (9-16) mg/dL Creatinine 1.10 (0.5-1.4) mg/dL Estim Creat Clear Calc 79.7 Estimated GFR > 60 POC Glucose 135 H (60-115) mg/dL Random Glucose 136 H (60-115) mg/dL Calcium 9.9 (8.4-10.2) mg/dL Total Bilirubin 0.5 (0.0-1.0) mg/dL AST 15 (5-37) U/L ALT 15 (0-40) U/L Alkaline Phosphatase 82 (39-117) U/L Total Protein 7.1 (6.5-8.0) g/dL Albumin 4.3 (3.5-5.0) g/dL Triglycerides 119 (<150) mg/dL Lipase 198 H (8-78) U/L Urine Color Yellow Urine Appearance Clear Urine pH 6.0 (5.0-9.0) Ur Specific Calvin 1.020 (1.005-1.025) Urine Protein Negative (Neg-Trace) mg/dL Urine Glucose (UA) Negative (Negative) mg/dL Urine Ketones Negative (Negative) mg/dL Urine Blood Trace (Negative) Urine Nitrite Negative (Negative) Ur Leukocyte Esterase Negative (Negative) Urine RBC 0-2 (0-2) /HPF Urine WBC 0-5 (0-5) /HPF Ur Squamous Epith Cells 0-2 (0-2) /HPF Urine Bacteria None Seen (None Seen) Hyaline Casts 0-2 (0-2) /LPF Ethyl Alcohol < 10 mg/dL Independent Interpretation I performed an independent interpretation of an: Ultrasound (no gallstones) and CT Scan (pancreatitis) Radiology Impression Discussion of test interpretation with radiology: I have reviewed the radiologist's reading. External Record Review External record reviewed: Office record Prescription Management I considered prescription management with: Pain Medication and Other Medications Administered Generic Name Dose Route Start Last Admin Trade Name Freq PRN Reason Stop Dose Admin Lactated Ringer's 1,000 mls @ 100 mls/hr 01/06/24 11:00 01/06/24 11:06 Lr IVCONT 100 mls/hr .Q10H DONOVAN Administration Discontinued Medications Generic Name Dose Route Start Last Admin Trade Name Freq PRN Reason Stop Dose Admin Sodium Chloride 1,000 mls @ 999 mls/hr 01/06/24 08:03 01/06/24 09:21 Ns IV 01/06/24 09:03 Infused .Q1H1M ONE Infusion Iohexol 100 ml 01/06/24 10:17 01/06/24 10:18 Iohexol 350 Mg/Ml 100 Ml Infus..Btl IV 01/06/24 10:18 85 ml ONCE ONE Administration Morphine Sulfate 4 mg 01/06/24 10:57 01/06/24 11:04 Morphine Sulfate 4 Mg/Ml Cartridge IVPUSH 01/06/24 10:58 4 mg ONCE ONE Administration Protocol Ondansetron HCl 4 mg 01/06/24 08:03 01/06/24 08:14 Ondansetron Hcl 4 Mg/2 Ml Vial IVPUSH 01/06/24 08:04 4 mg ONCE ONE Administration Pantoprazole Sodium 40 mg 01/06/24 08:03 01/06/24 08:15 Pantoprazole Sodium 40 Mg/10 Ml Vial IVPUSH 01/06/24 08:04 40 mg ONCE ONE Administration Critical Care Time Critical Care Time Critical Care Time: Yes Total Critical Care Time: 35 Attestation: pain improved with IV morphine though some pain stil persists, repeat assessment, admission I attest to this time spent taking care of the patient Discharge Plan Discharge Clinical Impression: Nausea Abdominal pain Qualifiers: Abdominal location: epigastric Qualified Code(s): R10.13 - Epigastric pain Acute pancreatitis Qualifiers: Pancreatitis type: unspecified pancreatitis type Acute pancreatitis complication: no infection or necrosis Qualified Code(s): K85.90 - Acute pancreatitis without necrosis or infection, unspecified Patient Disposition: Home, Self-Care Instructions: Pancreatitis (ED), Abdominal Pain (ED), Clear Liquid Diet (ED) Additional Instructions: return for fevers, vomiting worsening pain or any other concerns clear liquid diet for 48 hours then advance slowly tylenol is okay but avoid motrin/ibuprofen Prescriptions: New morphine 15 mg tablet 15 mg PO Q6H PRN (Reason: pain) Qty: 15 0RF Rx Instructions: partial fill okay; Partial Fill upon patient request. ondansetron 4 mg tablet,disintegrating 4 mg PO Q8H PRN (Reason: nausea and vomiting) Qty: 20 0RF omeprazole 20 mg capsule,delayed release(DR/EC) 20 mg PO DAILY Qty: 14 0RF No Action (DME) pen needle, diabetic 32 gauge x 5/32 needle See Rx Instructions .Route Qty: 400 3RF Rx Instructions: As directed to inject insulin 4 times per day (DME) blood-glucose meter [FreeStyle Lite Meter] Kit See Rx Instructions .Route Qty: 1 0RF Rx Instructions: As directed (DME) FreeStyle Lite Strips Strip See Rx Instructions .Route Qty: 100 0RF Rx Instructions: As directed (DME) lancets 17 gauge misc See Rx Instructions .Route Qty: 200 0RF Rx Instructions: As directed ibuprofen 600 mg Tablet 600 mg PO DAILY PRN (Reason: Pain) (DME) blood pressure test kit-large Kit See Rx Instructions .ROUTE .MEDSUPPLY Qty: 1 0RF Rx Instructions: As directed olmesartan 20 mg tablet 20 mg PO DAILY Qty: 90 1RF Stand Alone Forms: Work/School Release Print Language: Maltese
[2024-01-06 08:09] LABS: Glucose, Whole Blood 135 mg/dL (60-115)
[2024-01-06] MEDS: 0.9 % Sodium Chloride 1,000 ML 999 ML IV (08:11)
[2024-01-06 08:14] LABS: MANUAL DIFF FLAG NO
[2024-01-06] MEDS: ondansetron HCL 4 MG/2 ML VIAL IVPUSH (08:14)
[2024-01-06] MEDS: Pantoprazole Sodium 40 MG/10 ML VIAL IVPUSH (08:15)
[2024-01-06 08:18] LABS: Basophils Percent Auto 0.3 % (0-2); Eosinophils Absolute Auto 0.1 X10*3/uL (0.0-0.4); Eosinophils Percent Auto 0.5 % (0-4); Hematocrit 42.6 % (42.0-52.0); Hemoglobin 14.5 g/dl (14.0-18.0); Imm Gran Abs Auto 0.05 X10*3/uL (0.00-0.03); Imm Gran Pct Auto 0.3 % (0.0-0.4); Lymphocytes Absolute Auto 2.1 X10*3/uL (1.2-4.9); Lymphocytes Percent Auto 13.4 % (20-40); Mean Corpuscular Hemoglobin 26.9 pg (27.0-33.0); Mean Platelet Volume 10.9 fL (9.4-12.4); Monocytes Absolute Auto 1.3 X10*3/uL (0.1-1.2); Monocytes Percent Auto 8.1 % (2-11); Neutrophils Absolute Auto 12.3 x10*3/uL (2.0-8.3); Neutrophils Percent Auto 77.4 % (45-73); Platelet Count 246 X10*3/uL (160-400); Red Blood Count 5.39 X10*6/uL (4.60-5.80); Red Cell Distribution Width 14.5 % (11.0-16.0); White Blood Count 15.9 X10*3/uL (4.8-10.8)
[2024-01-06 08:28] VITALS: BP 185/92; PULSE 63; RESP 18; TEMP 36.9; O2SAT 96
[2024-01-06 08:28] LABS: Alanine Aminotransferase 15 U/L (0-40); Albumin Level 4.3 g/dL (3.5-5.0); Alkaline Phosphatase 82 U/L (39-117); Anion Gap 12 (12-20); Aspartate Amino Transferase 15 U/L (5-37); Bilirubin Total 0.5 mg/dL (0.0-1.0); Blood Urea Nitrogen 15 mg/dL (9-16); Calcium 9.9 mg/dL (8.4-10.2); Carbon Dioxide 28 mmol/L (22-29); Chloride 107 mmol/L (96-108); Creatinine Clr Calc Pharmacy 79.7; Estimated Glomerular Filt Rate > 60; Glucose Random 136 mg/dL (60-115); Lipase 198 U/L (8-78); Potassium 3.8 mmol/L (3.3-5.1); Sodium 143 mmol/L (135-145); Total Protein 7.1 g/dL (6.5-8.0)
[2024-01-06 09:53] LABS: Appearance Urine Clear; Color Urine Yellow; Glucose Urine UA Negative (Negative); Leukocyte Esterase Urine Negative (Negative); Nitrite Urine Negative (Negative); UMIC TRIGGER UACC YES; Urine Blood Trace (Negative); Urine Ketones Negative (Negative); Urine Protein Negative (Neg-Trace)
[2024-01-06 09:59] LABS: Bacteria Urine None Seen (None Seen); Hyaline Casts Urine 0-2 /LPF (0-2); RBC Urine 0-2 /HPF (0-2); Squamous Epithelial Cell Urine 0-2 /HPF (0-2); WBC Urine 0-5 /HPF (0-5)
[2024-01-06 10:00] VITALS: BP 173/89; PULSE 57; RESP 18; TEMP 36.6
[2024-01-06] MEDS: iohexoL 350 MG/ML 100 ML INFUS..BTL IV (10:18)
[2024-01-06] MEDS: Morphine Sulfate 4 MG/ML CARTRIDGE IVPUSH (11:04)
[2024-01-06] MEDS: Lactated Ringers 1,000 ML 100 ML IVCONT (11:06)
[2024-01-06 11:23] LABS: Ethanol < 10 mg/dL; Triglycerides 119 mg/dL (<150)
--- NOTE | 2024-01-06 12:28 | PC.NURSE ---
Ok'ed clear liquids. Pt pain has improved. LR infusing now at 100/hr.
--- NOTE | 2024-01-06 12:51 | PHA.MEDREC ---
Pharmacy Consult ? Medication Reconciliation Pharmacy has completed the medication reconciliation. Confirmed medications with patient.
[2024-01-06 13:28] VITALS: BP 167/89; PULSE 53; RESP 16; TEMP 36.9; O2SAT 97
== END 2024-01-06 13:29 | disposition home or self-care (01) ==
PROVIDERS: Emergency Provider Emergency Medicine; PCP Internal Medicine
DX: K85.90 Acute pancreatitis without necrosis or infection, unspecified (principal); R10.13 Epigastric pain; R11.0 Nausea; E11.9 Type 2 diabetes mellitus without complications; I10 Essential (primary) hypertension; F17.210 Nicotine dependence, cigarettes, uncomplicated; Z87.442 Personal history of urinary calculi; F17.200 Nicotine dependence, unspecified, uncomplicated
CPT/HCPCS: 36415; 74177; 76705; 80053; 80307; 81001; 82947; 83690; 84478; 85025; 96361; 96374; 96375; 99284; C9113; J2270; J2405; J7120; Q9967

== ENCOUNTER 2024-05-11 10:41 | Outpatient (AMB) | payer OTHER, SELFPAY ==
[2024-05-11 10:42] VITALS: BP 126/74; PULSE 79; O2SAT 98; BMI 32.1
--- NOTE | 2024-05-11 10:42 | A.OFFPC_ITS ---
Vital Signs 05/11/24 10:42 Height 5 ft 7 in Weight 205 lb BMI 32.1 BP 126/74 Blood Pressure Location Rt brachial Position Sitting Pulse 79 Pulse Source Pulse Oximeter Pulse Oximetry (%) 98 Oxygen Delivery Method Room Air Intake Visit Reasons: HDFreschedule Intake Note: Pt is here today for Hospital follow up visit. Allergies oxycodone [Percocet] Allergy (Intermediate, Verified 05/11/24 11:04) hives tramadol Allergy (Intermediate, Verified 05/11/24 11:04) hives metformin Allergy (Verified 05/11/24 11:36) Diarrhea Medication List - Last Reconciled 05/11/24 by Bridgette Coburn MD amlodipine 10 mg PO DAILY aspirin 325 mg PO DAILY atorvastatin 80 mg PO BEDTIME blood pressure test kit-large As directed blood sugar diagnostic (FreeStyle Lite Strips) As directed blood-glucose meter (FreeStyle Lite Meter kit) As directed celecoxib 200 mg PO BID clopidogrel 75 mg PO DAILY diclofenac sodium 75 mg PO BID docusate sodium 100 mg PO DAILY lancets As directed lisinopril 10 mg PO DAILY lisinopril-hydrochlorothiazide 20-25 mg 1 tab PO DAILY metformin 500 mg PO DAILY nicotine 1 patch transdermal DAILY pen needle, diabetic As directed to inject insulin 4 times per day tamsulosin 0.4 mg PO DAILY Tobacco use date assessed: 05/11/24 Dental Screening Dental Screen Date: 10/22/23 HPI HDFreschedule HPI Details Pt presents for follow-up of hospitalization for acute left-sided weakness on April 18. MRI was consistent with acute infarct in the right thalamus. patient was discharged to inpatient rehab and then home. He starting outpatient physical therapy. He has been ambulating with a walker and reports improving strength of the left upper extremity and still significant weakness in the left lower extremity. Since discharge he has been compliant with his medications for hypertension diabetes and was started on clopidogrel and full aspirin by Neurology. Patient is trying to quit smoking using nicotine patch. [facility] Medical History (Updated 05/11/24 @ 14:57 by Bridgette Coburn MD) Microscopic hematuria Annual physical exam DJD (degenerative joint disease) HTN (hypertension) Surgical History History of surgery H/O lumbosacral spine surgery H/O colonoscopy History of dental surgery Family History Father Stroke Diabetes mellitus Mother Diabetes mellitus Overweight History of high blood pressure Brother No problems noted. Brother Cancer Social History Household Members: Family Housing: House Do you presently have visiting nurse or other home services: No Alcohol intake: never Patient Tobacco Use Status: Current everyday Tobacco user Tobacco use type: Cigarette Cigarette Packs Per Day: 0.25 Cigarettes Per Day: 5.0 Years Smoked: long time e-Cigarette/Vaping Use: Currently Using Advance Directives Date on File: 08/18/22 service: No Current occupational status: employed Cognitive needs: No Hearing needs: No Vision needs: Yes Questionnaire Thrive Questionnaire Date Thrive assessed: 10/22/23 SUNIL-7 AMB Questionnaire SUNIL-7 Date SUNIL - 7 assessed: 10/22/23 Source: Developed by Drs. Radames Bravo, Lisset Sinclair, Tapan Haile and colleagues, with an educational nancy from [employer]. Review of Systems Const All systems reviewed & are unremarkable except as noted in HPI and below Eyes Reports no additional complaints ENT Reports no additional complaints Card Reports no additional complaints Resp Reports no additional complaints GI Reports no additional complaints Reports no additional complaints Musc Reports no additional complaints Physical exam (Primary Care) Vital Signs: Last Vital Signs Pulse 79 05/11/24 10:42 BP 126/74 05/11/24 10:42 Pulse Ox 98 05/11/24 10:42 Oxygen Delivery Method Room Air 05/11/24 10:42 BMI result Body Mass Index 32.1 Tobacco/Smoking Status: Tobacco use Status Tobacco use date assessed 05/11/24 05/11/24 11:12 Patient Tobacco Use Status Current everyday Tobacco 05/11/24 10:43 Tobacco use type Cigarette 05/11/24 10:43 e-Cigarette/Vaping Use Currently Using 05/11/24 10:43 Thrive Assessment: Date of Thrive Assessment Date Thrive assessed 10/22/23 05/11/24 10:43 Const General: no acute distress Eyes General: appearance normal, both eyes and all related structures Resp Effort & Inspection: normal respiratory effort Auscultation: clear to auscultation bilaterally Cardio Rhythm: regular rhythm Heart sounds: S1 normal heart sound present and S2 normal heart sound present GI Inspection: Yes normal to inspection Palpation (GI): Soft to palpation Percussion: Yes normal to percussion Auscultation: normal bowel sounds Neuro Other: LEFT LOWER EXTREMITY OF 4/5 DISTAL AND PROXIMAL STRENGTH, left upper extremity 4 to 5/5 distal and proximal strength, General: CN's II-XI intact bilaterally Gait exam (Neuro): Assisted gait required Results AMB Hemoglobin A1c AMB Hemoglobin A1c 6.4 % Last Edit by VIKTORIA Kong on 05/11/24 11:4 3 Results Reviewed Results Reviewed: Laboratory Last Values Hgb A1c (Clinic) 6.4 % (4.0-6.0) H 05/11/24 11:43 Coding Level of Care Code Est Pt Level 4 (48547) Diagnoses Nicotine dependence F17.200 Diabetes type 2, controlled E11.9 Essential hypertension I10 Hypertension type: essential hypertension Cerebrovascular accident (CVA) of right thalamus I63.81 Assessment & Plan Assessment & Plan (1) Nicotine dependence: Comment: 1/2 PPD , trying to quit Code(s): F17.200 - Nicotine dependence, unspecified, uncomplicated Category: Medical Plan: Continue nicotine patch (2) Diabetes type 2, controlled: Comment: Patient can tolerate only 500 mg of metformin Code(s): E11.9 - Type 2 diabetes mellitus without complications Category: Medical Plan: A1c is 6.3, continue metformin, ADA diet follow-up in 1 month (3) HTN (hypertension): Code(s): I10 - Essential (primary) hypertension Category: Medical Qualifiers: Hypertension type: essential hypertension Qualified Code(s): I10 - Essential (primary) hypertension Plan: Continue lisinopril with hydrochlorothiazide follow-up in 1 month (4) Cerebrovascular accident (CVA) of right thalamus: Comment: LEFT-SIDED WEAKNESS, 04/18/2024 Code(s): I63.81 - Other cerebral infarction due to occlusion or stenosis of small artery Category: Medical Plan: Continue physical therapy follow-up with Neurology, continue clopidogrel and aspirin Orders: Orders AMB Hemoglobin A1c Today Z13.9 - Encounter for screening, unspecified Comprehensive [place]. Panel Fast 1 Month E11.9 - Type 2 diabetes mellitus without complications, I10 - Essential (primary) hypertension, I63.81 - Other cerebral infarction due to occlusion or stenosis of small artery Lipid Panel 1 Month E11.9 - Type 2 diabetes mellitus without complications, I10 - Essential (primary) hypertension, I63.81 - Other cerebral infarction due to occlusion or stenosis of small artery Complete Blood Count Auto Diff 1 Month E11.9 - Type 2 diabetes mellitus without complications, I10 - Essential (primary) hypertension, I63.81 - Other cerebral infarction due to occlusion or stenosis of small artery Microalbumin, Random (w Creat) 1 Month E11.9 - Type 2 diabetes mellitus without complications, I10 - Essential (primary) hypertension, I63.81 - Other cerebral infarction due to occlusion or stenosis of small artery Medications: New metformin 500 mg PO DAILY 90 tabs 0RF atorvastatin 80 mg PO BEDTIME 90 tabs 0RF clopidogrel 75 mg PO DAILY 90 tabs 0RF lisinopril-hydrochlorothiazide 20-12.5 mg 2 tabs PO DAILY 60 tabs 1RF
== END 2024-05-11 11:53 | disposition home or self-care (01) ==
PROVIDERS: PCP Internal Medicine; Visit Provider Internal Medicine
DX: F17.200 Nicotine dependence, unspecified, uncomplicated (principal); E11.9 Type 2 diabetes mellitus without complications; I10 Essential (primary) hypertension; I63.81 Other cerebral infarction due to occlusion or stenosis of small artery; Z13.9 Encounter for screening, unspecified

== ENCOUNTER → 2024-05-11 10:41 | Outpatient (BNVA) | payer OTHER, SELFPAY | PROVIDERS: PCP Internal Medicine; Visit Provider Internal Medicine | DX: E11.9 Type 2 diabetes mellitus without complications (principal); I63.81 Other cerebral infarction due to occlusion or stenosis of small artery; I10 Essential (primary) hypertension; F17.200 Nicotine dependence, unspecified, uncomplicated; Z71.6 Tobacco abuse counseling | CPT/HCPCS: 83036; 99212 ==

== ENCOUNTER 2024-05-18 16:01 | Emergency (ER) | payer OTHER, SELFPAY ==
[2024-05-18 16:04] VITALS: BP 140/69; PULSE 65; RESP 16; TEMP 36.6; O2SAT 97; BMI 32.1
--- NOTE | 2024-05-18 16:04 | ED.GENADULT ---
HPI - General Adult General Stated complaint: r/l flank pain-back pain Related Data Home Medications ?Medication ?Instructions ?Recorded ?Confirmed aspirin 325 mg tablet 325 mg PO DAILY 05/11/24 05/11/24 docusate sodium 100 mg capsule 100 mg PO DAILY 05/11/24 05/11/24 nicotine 1 patch transdermal DAILY 05/11/24 05/11/24 21mg/24hr-14mg/24hr-7mg/24hr daily transderm patches,sequentl Previous Rx's ?Medication ?Instructions ?Recorded blood pressure test kit-large #1 cleve 09/20/20 blood sugar diagnostic (FreeStyle #100 ea 08/23/22 Lite Strips) blood-glucose meter (FreeStyle #1 ea 08/23/22 Lite Meter kit) lancets 17 gauge #200 cleve 08/23/22 pen needle, diabetic 32 gauge x #400 cleve 10/15/22 atorvastatin 80 mg tablet 80 mg PO BEDTIME #90 tabs 05/11/24 clopidogrel 75 mg tablet 75 mg PO DAILY #90 tabs 05/11/24 lisinopril 20 2 tab PO DAILY #60 tabs 05/11/24 mg-hydrochlorothiazide 12.5 mg tablet metformin 500 mg tablet 500 mg PO DAILY #90 tabs 05/11/24 Allergies Allergy/AdvReac Type Severity Reaction Status Date / Time oxycodone [Percocet] Allergy Intermediate hives Verified 05/18/24 16:06 tramadol Allergy Intermediate hives Verified 05/18/24 16:06 [facility] Past Medical History Medical History Microscopic hematuria Annual physical exam DJD (degenerative joint disease) HTN (hypertension) Surgical History History of surgery H/O lumbosacral spine surgery H/O colonoscopy History of dental surgery Family History Family History Father Stroke Diabetes mellitus Mother Diabetes mellitus Overweight History of high blood pressure Brother No problems noted. Brother Cancer Social History Social History Household Members: Family Housing: House Do you presently have visiting nurse or other home services: No Alcohol intake: never Patient Tobacco Use Status: Current everyday Tobacco user Tobacco use type: Cigarette Cigarette Packs Per Day: 0.25 Cigarettes Per Day: 5.0 Years Smoked: long time e-Cigarette/Vaping Use: Currently Using Advance Directives Date on File: 08/18/22 service: No Current occupational status: employed Cognitive needs: No Hearing needs: No Vision needs: Yes Course Course Course Narrative: RME, this is a rapid medical exam performed by Dallas Michel please refer to primary provider for complete H&P- 59-year-old male past medical history significant for diabetes, hypertension, recent CVA presents for evaluation of lower back pain. Patient believes his symptoms are related to medication that he was discharged on after his stroke. His symptoms started 3 or 4 days ago. He is on aspirin, lisinopril, hydrochlorothiazide, amlodipine. Per outpatient records, the patient failed atorvastatin on 05/04/2024 and 05/11/2024. Plan for labs, urinalysis Discharge Plan Discharge Prescriptions: No Action (DME) pen needle, diabetic 32 gauge x 5/32 needle See Rx Instructions .Route Qty: 400 3RF Rx Instructions: As directed to inject insulin 4 times per day (DME) blood-glucose meter [FreeStyle Lite Meter] Kit See Rx Instructions .Route Qty: 1 0RF Rx Instructions: As directed (DME) FreeStyle Lite Strips Strip See Rx Instructions .Route Qty: 100 0RF Rx Instructions: As directed (DME) lancets 17 gauge misc See Rx Instructions .Route Qty: 200 0RF Rx Instructions: As directed (DME) blood pressure test kit-large Kit See Rx Instructions .ROUTE .MEDSUPPLY Qty: 1 0RF Rx Instructions: As directed aspirin 325 mg tablet 325 mg PO DAILY docusate sodium 100 mg capsule 100 mg PO DAILY nicotine 21-14-7 mg/24 hr patch, TD daily, sequential 1 patch transdermal DAILY metformin 500 mg tablet 500 mg PO DAILY Qty: 90 0RF atorvastatin 80 mg tablet 80 mg PO BEDTIME Qty: 90 0RF lisinopril-hydrochlorothiazide 20-12.5 mg tablet 2 tab PO DAILY Qty: 60 1RF clopidogrel 75 mg tablet 75 mg PO DAILY Qty: 90 0RF Print Language: Albanian
[2024-05-18 16:19] LABS: MANUAL DIFF FLAG NO
[2024-05-18 16:20] LABS: Basophils Percent Auto 0.3 % (0-2); Eosinophils Absolute Auto 0.1 X10*3/uL (0.0-0.4); Hematocrit 43.3 % (42.0-52.0); Hemoglobin 14.5 g/dl (14.0-18.0); Imm Gran Abs Auto 0.04 X10*3/uL (0.00-0.03); Imm Gran Pct Auto 0.3 % (0.0-0.4); Lymphocytes Absolute Auto 2.3 X10*3/uL (1.2-4.9); Lymphocytes Percent Auto 16.1 % (20-40); Mean Corpuscular HGB Conc 33.5 g/dl (31.0-36.0); Mean Corpuscular Hemoglobin 26.4 pg (27.0-33.0); Mean Corpuscular Volume 78.9 fL (80.0-98.0); Monocytes Absolute Auto 0.8 X10*3/uL (0.1-1.2); Monocytes Percent Auto 5.3 % (2-11); Neutrophils Absolute Auto 10.8 x10*3/uL (2.0-8.3); Platelet Count 302 X10*3/uL (160-400); Red Blood Count 5.49 X10*6/uL (4.60-5.80); White Blood Count 14.1 X10*3/uL (4.8-10.8)
[2024-05-18 16:34] LABS: Alanine Aminotransferase 34 U/L (0-40); Albumin Level 4.4 g/dL (3.5-5.0); Alkaline Phosphatase 92 U/L (39-117); Anion Gap 17 (12-20); Aspartate Amino Transferase 36 U/L (5-37); Bilirubin Total 0.4 mg/dL (0.0-1.0); Blood Urea Nitrogen 18 mg/dL (9-16); Calcium 10.4 mg/dL (8.4-10.2); Carbon Dioxide 29 mmol/L (22-29); Chloride 101 mmol/L (96-108); Creatinine Clr Calc Pharmacy 75.5; Estimated Glomerular Filt Rate > 60; Glucose Random 158 mg/dL (60-115); Lipase 35 U/L (8-78); Potassium 3.4 mmol/L (3.3-5.1); Sodium 144 mmol/L (135-145); Total Protein 7.6 g/dL (6.5-8.0)
== END 2024-05-18 21:04 | disposition left against medical advice (07) ==
LOC: HO.ED 21:01
PROVIDERS: Physician Assistant; Emergency Provider Emergency Medicine; PCP Internal Medicine
DX: M54.9 Dorsalgia, unspecified (principal); Z53.21 Procedure and treatment not carried out due to patient leaving prior to being seen by health care provider
CPT/HCPCS: 36415; 80053; 82550; 83690; 85025; 99281

== ENCOUNTER 2024-07-20 10:50 | Outpatient (AMB) | payer OTHER, SELFPAY ==
[2024-07-20 10:57] VITALS: BP 132/78; PULSE 65; O2SAT 98; BMI 32.4
--- NOTE | 2024-07-20 10:57 | A.OFFPC_ITS ---
Vital Signs 07/20/24 10:57 Height 5 ft 7 in Weight 207 lb BMI 32.4 BP 132/78 Blood Pressure Location Rt brachial Position Sitting Pulse 65 Pulse Source Pulse Oximeter Pulse Oximetry (%) 98 Oxygen Delivery Method Room Air Intake Visit Reasons: Stroke F/U Intake Note: Pt is here today for a follow up visit. Allergies oxycodone [Percocet] Allergy (Intermediate, Verified 07/20/24 11:06) hives tramadol Allergy (Intermediate, Verified 07/20/24 11:06) hives Medication List - Last Reconciled 07/20/24 by Bridgette Coburn MD amlodipine 10 mg PO DAILY aspirin 325 mg PO DAILY atorvastatin 80 mg PO BEDTIME blood pressure test kit-large As directed blood sugar diagnostic (FreeStyle Lite Strips) As directed blood-glucose meter (FreeStyle Lite Meter kit) As directed clopidogrel 75 mg PO DAILY docusate sodium 100 mg PO DAILY lancets As directed lisinopril-hydrochlorothiazide 20-12.5 mg 2 tabs PO DAILY metformin 500 mg PO DAILY nicotine 1 patch transdermal DAILY pen needle, diabetic As directed to inject insulin 4 times per day Tobacco use date assessed: 07/20/24 Dental Screening Dental Screen Date: 07/20/24 Did you have a dental visit in the last 12 months?: No Did you have a dental problem in the last 6 months where you did not have access to dental care?: No Was dental information given to patient?: Patient declined HPI Stroke F/U HPI Details Pt presents for f/u HTN, hyperlipid type 2 diabetes. He complains of persistent left lower extremity weakness and impaired balance when walking even using a cane. He has been working with physical therapy but it is not ready to return to work at the [employer]. [facility] Medical History (Updated 07/20/24 @ 12:05 by Bridgette Coburn MD) Microscopic hematuria Annual physical exam DJD (degenerative joint disease) HTN (hypertension) Surgical History History of surgery H/O lumbosacral spine surgery H/O colonoscopy History of dental surgery Family History Father Stroke Diabetes mellitus Mother Diabetes mellitus Overweight History of high blood pressure Brother No problems noted. Brother Cancer Social History Household Members: Family Housing: House Do you presently have visiting nurse or other home services: No Alcohol intake: never Patient Tobacco Use Status: Current everyday Tobacco user Tobacco use type: Cigarette Cigarette Packs Per Day: 0.25 Cigarettes Per Day: 5.0 Years Smoked: long time e-Cigarette/Vaping Use: Currently Using Advance Directives Date on File: 08/18/22 service: No Current occupational status: employed Cognitive needs: No Hearing needs: No Vision needs: Yes Questionnaire PHQ-9 Over the last 2 weeks, how often have you been bothered by any of the following problems? 1. Little interest or pleasure in doing things: not at all 2. Feeling down, depressed, or hopeless: not at all 3. Trouble falling or staying asleep, or sleeping too much: not at all 4. Feeling tired or having little energy: not at all 5. Poor appetite or overeating: not at all 6. Feeling bad about yourself - or that you are a failure or have let yourself or your family down: not at all 7. Trouble concentrating on things, such as reading the newspaper or watching television: not at all 8. Moving or speaking so slowly that other people could have noticed. Or the opposite - being so fidgety or restless that you have been moving around a lot more than usual: not at all 9. Thoughts that you would be better off or of hurting yourself in some way: not at all Total score: 0 Depression Screening Interpretation: Negative Depression Screening Done: Yes 39894 - PHQ-9 Billing: Yes Source: Developed by Drs. Radames Bravo, Lisset Sinclair, Tapan Haile and colleagues, with an educational nancy from [employer]. Thrive Questionnaire Date Thrive assessed: 07/20/24 I am a: Patient What is your living situation today?: I have a steady place to live Within the past 12 months, did the food you bought not last and you didn't have the money to get more?: Never true Within the past 12 months, did you worry whether your food would run out before you got money to buy more?: Never true Do you have trouble paying for medicines?: No Do you have trouble getting transportation to medical appointments?: No Do you have trouble paying your heating and electricity bill?: Yes Do you have trouble taking care of your child, family member or friend?: No Do you have trouble with day-to-day activities such as bathing, preparing meals, shopping, managing finances, etc.?: No Are you currently unemployed and looking for a job?: No Are you interested in more education?: No Please select the resources that you would like help with: Utilities Currently or been in a relationship where the following occur: No concerns reported THRIVE Score: 1 AUDIT C Alcohol Use Questionnaire (AUDIT-C) 1. How often do you have a drink containing alcohol?: Never 3. How often do you have six or more drinks on one occasion?: Never Total Score: 0 SUNIL-7 AMB Questionnaire SUNIL-7 Date SUNIL - 7 assessed: 07/20/24 Feeling nervous, anxious, or on edge: 0 = Not at all Not being able to stop or control worryin = Not at all Worrying too much about different things: 0 = Not at all Trouble relaxin = Not at all Being so restless that it is hard to sit still: 0 = Not at all Becoming easily annoyed or irritable: 0 = Not at all Feeling afraid as if something awful might happen: 0 = Not at all Total SUNIL-7 score (0-4 normal; 5-9 mild; 10-14 moderate; 15-21 severe): 0 Source: Developed by Drs. Radames Bravo, Lisset Sinclair, Tapan Haile and colleagues, with an educational nancy from [employer]. SUNIL-7 Assessment Billing SUNIL-7 Assessment Tool: SUNIL-7 Assessment 02204 Review of Systems Const All systems reviewed & are unremarkable except as noted in HPI and below ENT Reports no additional complaints Card Reports no additional complaints Resp Reports no additional complaints GI Reports no additional complaints Reports no additional complaints Physical exam (Primary Care) Vital Signs: Last Vital Signs Pulse 65 07/20/24 10:57 BP 132/78 07/20/24 10:57 Pulse Ox 98 07/20/24 10:57 Oxygen Delivery Method Room Air 07/20/24 10:57 BMI result Body Mass Index 32.4 Tobacco/Smoking Status: Tobacco use Status Tobacco use date assessed 07/20/24 07/20/24 11:07 Patient Tobacco Use Status Current everyday Tobacco 07/20/24 10:57 Tobacco use type Cigarette 07/20/24 10:57 e-Cigarette/Vaping Use Currently Using 07/20/24 10:57 PHQ-9: PHQ-9 Score PHQ-9: Total score 0 07/20/24 11:07 Depression Screening Interpretation: Negative Thrive Assessment: Date of Thrive Assessment Date Thrive assessed 07/20/24 07/20/24 11:07 Currently or been in a relationship where the following occur: No concerns reported Const General: no acute distress HENMT Head: Yes normal to inspection Face and sinus: Yes normal facial exam Eyes General: appearance normal, both eyes and all related structures Neck Neck: Yes supple Resp Effort & Inspection: normal respiratory effort Auscultation: clear to auscultation bilaterally Cardio Rhythm: regular rhythm Heart sounds: S1 normal heart sound present and S2 normal heart sound present Neuro Other: Upper extremities strength 5/5, left lower extremity strength 4/5 and right lower extremity strength is 5/5 Cranial nerves: Yes CN's II-XII intact bilaterally Coding Level of Care Code Est Pt Level 4 (45408) Diagnoses Essential hypertension I10 Hypertension type: essential hypertension Diabetes type 2, controlled E11.9 Cerebrovascular accident (CVA) of right thalamus I63.81 Additional Codes SUNIL-7 Assessment Billing - SUNIL-7 Assessment Tool: SUNIL-7 Assessment 91235 ([id number]) PHQ-9 - 02749 - PHQ-9 Billing: Yes ([id number]) Assessment & Plan Assessment & Plan (1) HTN (hypertension): Code(s): I10 - Essential (primary) hypertension Category: Medical Qualifiers: Hypertension type: essential hypertension Qualified Code(s): I10 - Essential (primary) hypertension Plan: Continue current medications (2) Diabetes type 2, controlled: Comment: Patient can tolerate only 500 mg of metformin Code(s): E11.9 - Type 2 diabetes mellitus without complications Category: Medical Plan: ADA diet regular physical activity weight loss discussed with the patient continue metformin follow-up in 3 months with a fasting labs before (3) Cerebrovascular accident (CVA) of right thalamus: Comment: LEFT-SIDED WEAKNESS, 04/18/2024 Code(s): I63.81 - Other cerebral infarction due to occlusion or stenosis of small artery Category: Medical Plan: Continue physical therapy out of work for 3 months until October 18, continue clopidogrel and aspirin Orders: Orders Comprehensive [place]. Panel Fast 3 Months E11.10 - Type 2 diabetes mellitus with ketoacidosis without coma, E11.9 - Type 2 diabetes mellitus without complications, I10 - Essential (primary) hypertension, I63.81 - Other cerebral infarction due to occlusion or stenosis of small artery Lipid Panel 3 Months E11.10 - Type 2 diabetes mellitus with ketoacidosis without coma, E11.9 - Type 2 diabetes mellitus without complications, I10 - Essential (primary) hypertension, I63.81 - Other cerebral infarction due to occlusion or stenosis of small artery Microalbumin, Random (w Creat) 3 Months E11.10 - Type 2 diabetes mellitus with ketoacidosis without coma, E11.9 - Type 2 diabetes mellitus without complications, I10 - Essential (primary) hypertension, I63.81 - Other cerebral infarction due to occlusion or stenosis of small artery Hemoglobin A1c 3 Months E11.10 - Type 2 diabetes mellitus with ketoacidosis without coma, E11.9 - Type 2 diabetes mellitus without complications, I10 - Essential (primary) hypertension, I63.81 - Other cerebral infarction due to occlusion or stenosis of small artery Complete Blood Count Auto Diff 3 Months E11.10 - Type 2 diabetes mellitus with ketoacidosis without coma, E11.9 - Type 2 diabetes mellitus without complications, I10 - Essential (primary) hypertension, I63.81 - Other cerebral infarction due to occlusion or stenosis of small artery Medications: New amlodipine 10 mg PO DAILY 90 tabs 1RF
== END 2024-07-20 12:10 | disposition home or self-care (01) ==
PROVIDERS: PCP Internal Medicine; Visit Provider Internal Medicine
DX: I10 Essential (primary) hypertension (principal); E11.9 Type 2 diabetes mellitus without complications; I63.81 Other cerebral infarction due to occlusion or stenosis of small artery

== ENCOUNTER 2024-10-23 10:07 | Outpatient (AMB) | payer OTHER, SELFPAY ==
[2024-10-23 10:16] VITALS: BP 128/68; PULSE 58; RESP 18; TEMP 36.8; O2SAT 96; BMI 33.4
--- NOTE | 2024-10-23 10:16 | MHC.PC.OV ---
Vital Signs 10/23/24 10:16 Height 5 ft 7 in Weight 213 lb BMI 33.4 BP 128/68 Blood Pressure Location Rt brachial Position Sitting Respiration 18 Pulse 58 Pulse Source Pulse Oximeter Temp 98.3 F Temp Source Oral Pulse Oximetry (%) 96 Oxygen Delivery Method Room Air Intake Visit Reasons: PE Intake Note: Pt is here today for PE. Allergies oxycodone [Percocet] Allergy (Intermediate, Verified 10/23/24 10:22) hives tramadol Allergy (Intermediate, Verified 10/23/24 10:22) hives Medication List - Last Reconciled 10/23/24 by Bridgette Coburn MD amlodipine 10 mg PO DAILY aspirin 325 mg PO DAILY atorvastatin 80 mg PO BEDTIME blood pressure test kit-large As directed blood sugar diagnostic (FreeStyle Lite Strips) As directed blood-glucose meter (FreeStyle Lite Meter kit) As directed clopidogrel 75 mg PO DAILY docusate sodium 100 mg PO DAILY lancets As directed lisinopril-hydrochlorothiazide 20-12.5 mg 2 tabs PO DAILY metformin 500 mg PO DAILY pen needle, diabetic As directed to inject insulin 4 times per day Tobacco use date assessed: 07/20/24 Dental Screening Dental Screen Date: 10/23/24 Did you have a dental visit in the last 12 months?: No Did you have a dental problem in the last 6 months where you did not have access to dental care?: No Was dental information given to patient?: Patient declined HPI PE HPI Details Pt presents for PE. PFSH Medical History Microscopic hematuria Annual physical exam DJD (degenerative joint disease) HTN (hypertension) Surgical History History of surgery H/O lumbosacral spine surgery H/O colonoscopy History of dental surgery Family History Father Stroke Diabetes mellitus Mother Diabetes mellitus Overweight History of high blood pressure Brother No problems noted. Brother Cancer Social History Household Members: Family Housing: House Do you presently have visiting nurse or other home services: No Alcohol intake: never Patient Tobacco Use Status: Current everyday Tobacco user Tobacco use type: Cigarette Cigarette Packs Per Day: 0.25 Cigarettes Per Day: 5.0 Years Smoked: long time e-Cigarette/Vaping Use: Currently Using Advance Directives Date on File: 08/18/22 service: No Current occupational status: employed Cognitive needs: No Hearing needs: No Vision needs: Yes Questionnaire PHQ-9 Over the last 2 weeks, how often have you been bothered by any of the following problems? 1. Little interest or pleasure in doing things: not at all 2. Feeling down, depressed, or hopeless: not at all 3. Trouble falling or staying asleep, or sleeping too much: not at all 4. Feeling tired or having little energy: not at all 5. Poor appetite or overeating: not at all 6. Feeling bad about yourself - or that you are a failure or have let yourself or your family down: not at all 7. Trouble concentrating on things, such as reading the newspaper or watching television: not at all 8. Moving or speaking so slowly that other people could have noticed. Or the opposite - being so fidgety or restless that you have been moving around a lot more than usual: not at all 9. Thoughts that you would be better off or of hurting yourself in some way: not at all Total score: 0 Depression Screening Interpretation: Negative Depression Screening Done: Yes 87100 - PHQ-9 Billing: Yes Source: Developed by Drs. Radames Bravo, Lisset Sinclair, Tapan Haile and colleagues, with an educational nancy from [employer]. Thrive Questionnaire Date Thrive assessed: 10/23/24 I am a: Patient What is your living situation today?: I have a steady place to live Within the past 12 months, did the food you bought not last and you didn't have the money to get more?: Never true Within the past 12 months, did you worry whether your food would run out before you got money to buy more?: Never true Do you have trouble paying for medicines?: No Do you have trouble getting transportation to medical appointments?: No Do you have trouble paying your heating and electricity bill?: Yes Do you have trouble taking care of your child, family member or friend?: No Do you have trouble with day-to-day activities such as bathing, preparing meals, shopping, managing finances, etc.?: No Are you currently unemployed and looking for a job?: No Are you interested in more education?: No Please select the resources that you would like help with: Utilities Currently or been in a relationship where the following occur: No concerns reported THRIVE Score: 1 AUDIT C Alcohol Use Questionnaire (AUDIT-C) 1. How often do you have a drink containing alcohol?: Never 3. How often do you have six or more drinks on one occasion?: Never Total Score: 0 SUNIL-7 AMB Questionnaire SUNIL-7 Date SUNIL - 7 assessed: 10/23/24 Feeling nervous, anxious, or on edge: 0 = Not at all Not being able to stop or control worryin = Not at all Worrying too much about different things: 0 = Not at all Trouble relaxin = Not at all Being so restless that it is hard to sit still: 0 = Not at all Becoming easily annoyed or irritable: 0 = Not at all Feeling afraid as if something awful might happen: 0 = Not at all Total SUNIL-7 score (0-4 normal; 5-9 mild; 10-14 moderate; 15-21 severe): 0 Source: Developed by Drs. Radames Bravo, Lisset Sinclair, Tapan Haile and colleagues, with an educational nancy from [employer]. SUNIL-7 Assessment Billing SUNIL-7 Assessment Tool: SUNIL-7 Assessment 66698 Review of Systems Const All systems reviewed & are unremarkable except as noted in HPI and below Eyes Reports no additional complaints ENT Reports no additional complaints Card Reports no additional complaints Resp Reports no additional complaints GI Reports no additional complaints Physical exam (Primary Care) Vital Signs: Last Vital Signs Temp 98.3 F 10/23/24 10:16 Pulse 58 10/23/24 10:16 Resp 18 10/23/24 10:16 BP 128/68 10/23/24 10:16 Pulse Ox 96 10/23/24 10:16 Oxygen Delivery Method Room Air 10/23/24 10:16 BMI result Body Mass Index 33.4 Tobacco/Smoking Status: Tobacco use Status Tobacco use date assessed 07/20/24 10/23/24 10:16 Patient Tobacco Use Status Current everyday Tobacco 10/23/24 10:16 Tobacco use type Cigarette 10/23/24 10:16 e-Cigarette/Vaping Use Currently Using 10/23/24 10:16 PHQ-9: PHQ-9 Score PHQ-9: Total score 0 10/23/24 11:28 Depression Screening Interpretation: Negative Thrive Assessment: Date of Thrive Assessment Date Thrive assessed 10/23/24 10/23/24 10:27 Currently or been in a relationship where the following occur: No concerns reported Const General: no acute distress HENMT Head: Yes normal to inspection Face and sinus: Yes normal facial exam Mouth: Normal oral and palatal mucosa present Eyes General: appearance normal, both eyes and all related structures Neck Neck: Yes no lymphadenopathy and Yes supple Resp Effort & Inspection: normal respiratory effort Auscultation: clear to auscultation bilaterally Cardio Rhythm: regular rhythm Heart sounds: S1 normal heart sound present and S2 normal heart sound present GI Inspection: Yes normal to inspection Palpation (GI): Soft to palpation Percussion: Yes normal to percussion Auscultation: normal bowel sounds Extrem Other: Diabetic foot exam skin is intact monofilament and vibration sensation intact b/l General: Yes no clubbing, cyanosis or edema Immunizations pneumoc 20-shakira conj-dip cr(PF) 0.5 mL IM syringe Performing Provider: Bridgette Coburn MD [place] [facility] [place] [facility] Administered by: VIKTORIA Kong on 10/23/24 11:28 Dose Route Admin Location Dispensed Lot Number Expiration Date NDC [employer] 0.5 mL IM Right Deltoid 0.5 mL [id number] 09/15/25 2425-3253-[address] VIS Given Date VIS Provided VIS Publication Date 10/23/24 Single Vaccine 21 Eligibility Eligibility Date Funding Source Not C Eligible 10/23/24 Private Coding Level of Care Code Est Pt Prev Care 40-64y(02912) Diagnoses Cerebrovascular accident (CVA) of right thalamus I63.81 Diabetes type 2, controlled E11.9 Annual physical exam Z00.00 Essential hypertension I10 Hypertension type: essential hypertension Additional Codes SUNIL-7 Assessment Billing - SUNIL-7 Assessment Tool: SUNIL-7 Assessment 00745 ([id number]) PHQ-9 - 13743 - PHQ-9 Billing: Yes ([id number]) Assessment & Plan Assessment & Plan (1) Cerebrovascular accident (CVA) of right thalamus: Comment: LEFT-SIDED WEAKNESS, 04/18/2024 Code(s): I63.81 - Other cerebral infarction due to occlusion or stenosis of small artery Category: Medical Plan: Continue physical therapy and current medications (2) Diabetes type 2, controlled: Comment: Patient can tolerate only 500 mg of metformin Code(s): E11.9 - Type 2 diabetes mellitus without complications Category: Medical Plan: Continue medication, patient will have a fasting blood work today follow-up in 3 months (3) Annual physical exam: Comment: Negative colonoscopy 2018 Code(s): Z00.00 - Encounter for general adult medical examination without abnormal findings Category: Medical Plan: Well-balanced diet regular physical activity discussed with the patient, (4) HTN (hypertension): Code(s): I10 - Essential (primary) hypertension Category: Medical Qualifiers: Hypertension type: essential hypertension Qualified Code(s): I10 - Essential (primary) hypertension Plan: Continue current medications Orders: Orders Lipid Panel 3 Months E11.9 - Type 2 diabetes mellitus without complications, I10 - Essential (primary) hypertension Complete Blood Count Auto Diff 3 Months E11.9 - Type 2 diabetes mellitus without complications, I10 - Essential (primary) hypertension Pneumococcal 20 Immunization Today Z23 - Encounter for immunization Comprehensive [place]. Panel Fast 3 Months E11.9 - Type 2 diabetes mellitus without complications, I10 - Essential (primary) hypertension Hemoglobin A1c 3 Months E11.9 - Type 2 diabetes mellitus without complications, I10 - Essential (primary) hypertension Microalbumin, Random (w Creat) 3 Months E11.9 - Type 2 diabetes mellitus without complications, I10 - Essential (primary) hypertension Medications: New FreeStyle [place] 14 Day Sensor (flash glucose sensor) As directed 2 ea 4RF NS
== END 2024-10-23 11:32 | disposition home or self-care (01) ==
LOC: HO.HMCC 10:07
PROVIDERS: PCP Internal Medicine; Visit Provider Internal Medicine
DX: I63.81 Other cerebral infarction due to occlusion or stenosis of small artery (principal); E11.9 Type 2 diabetes mellitus without complications; Z00.00 Encounter for general adult medical examination without abnormal findings; I10 Essential (primary) hypertension; Z23 Encounter for immunization

== ENCOUNTER → 2024-10-23 10:07 | Outpatient (BNVA) | payer OTHER, SELFPAY | PROVIDERS: PCP Internal Medicine; Visit Provider Internal Medicine | DX: Z00.00 Encounter for general adult medical examination without abnormal findings (principal); E11.9 Type 2 diabetes mellitus without complications; I10 Essential (primary) hypertension; Z23 Encounter for immunization; Z86.73 Personal history of transient ischemic attack (TIA), and cerebral infarction without residual deficits | CPT/HCPCS: 90471; 90677; 96127; 99396 ==

== ENCOUNTER 2025-01-23 20:56 | Emergency (ER) | payer OTHER, SELFPAY ==
[2025-01-23 21:38] VITALS: BP 191/98; PULSE 66; RESP 18; TEMP 36.9; O2SAT 96; BMI 31.8
[2025-01-23 22:05] LABS: Hematocrit 39.9 % (42.0-52.0); Hemoglobin 14.1 g/dl (14.0-18.0); Mean Corpuscular HGB Conc 35.3 g/dl (31.0-36.0); Mean Corpuscular Hemoglobin 26.6 pg (27.0-33.0); Mean Corpuscular Volume 75.1 fL (80.0-98.0); NRBC Abs Auto 0.000 X10*3/uL (0.0-0.012); NRBC Pct Auto 0.0 /100WBC (0.0-0.2); Platelet Count 278 X10*3/uL (160-400); Red Blood Count 5.31 X10*6/uL (4.60-5.80); White Blood Count 12.1 X10*3/uL (4.8-10.8)
[2025-01-23 22:06] LABS: Appearance Urine Clear; Glucose Urine UA >=1000 mg/dL (Negative); PH 5.5 (5.0-9.0); Specific Gravity - Urine >= 1.030 (1.005-1.025); UMIC TRIGGER UACC YES
[2025-01-23 22:29] LABS: Alanine Aminotransferase 20 U/L (0-40); Albumin Level 4.5 g/dL (3.5-5.0); Alkaline Phosphatase 124 U/L (39-117); Anion Gap 14 (12-20); Aspartate Amino Transferase 20 U/L (5-37); Blood Urea Nitrogen 15 mg/dL (9-16); Calcium 9.7 mg/dL (8.4-10.2); Carbon Dioxide 25 mmol/L (22-29); Chloride 100 mmol/L (96-108); Creatinine Clr Calc Pharmacy 64.8; Estimated Glomerular Filt Rate 56; Magnesium 2.3 mg/dL (1.6-2.6); Potassium 4.0 mmol/L (3.3-5.1); Sodium 135 mmol/L (135-145); Total Protein 7.3 g/dL (6.5-8.0)
[2025-01-23 22:44] LABS: Glucose, Whole Blood 566 mg/dL (60-115)
--- NOTE | 2025-01-23 23:15 | ED.GENADULT ---
HPI - General Adult General Chief complaint: General Medical Stated complaint: Urinary Incontinence, diabetic pressure high Time Seen by Provider: 01/23/25 23:15 Source: patient, family, RN notes reviewed and old records reviewed Mode of arrival: ambulatory Limitations: no limitations History of Present Illness ED Provider: Dr. Calli Paula HPI narrative: 59-year-old male with history of hypertension, diabetes, CVA, tobacco use and kidney stones presenting with frequency of urination ongoing for the last several weeks. Admits that he is urinating ?every 20 minutes?. Took his blood sugar today and noted it to be high. Blood sugar upon arrival to the emergency department is 566. Denies other illness including fevers, body aches, headaches, vision changes, chest pain, difficulty breathing, abdominal pain, nausea or vomiting, bowel changes, dysuria or hematuria, extremity weakness/numbness aside from his baseline. Patient's daughter admits that he had previously been using insulin but stopped taking it just before he had a stroke about a year ago. Evidently the injections were ?making his stomach hard?. He has been taking metformin only. Related Data Home Medications ?Medication ?Instructions ?Recorded ?Confirmed aspirin 325 mg tablet 325 mg PO DAILY 05/11/24 10/23/24 docusate sodium 100 mg capsule 100 mg PO DAILY 05/11/24 10/23/24 Previous Rx's ?Medication ?Instructions ?Recorded blood pressure test kit-large #1 09/20/20 blood sugar diagnostic (FreeStyle #100 ea 08/23/22 Lite Strips) blood-glucose meter (FreeStyle #1 ea 08/23/22 Lite Meter kit) lancets 17 gauge #200 ea 08/23/22 pen needle, diabetic 32 gauge x #400 10/15/22 atorvastatin 80 mg tablet 80 mg PO BEDTIME #90 tabs 05/11/24 clopidogrel 75 mg tablet 75 mg PO DAILY #90 tabs 05/11/24 lisinopril 20 2 tab PO DAILY #60 tabs 05/11/24 mg-hydrochlorothiazide 12.5 mg tablet amlodipine 10 mg tablet 10 mg PO DAILY #90 tabs 07/20/24 metformin 500 mg tablet 500 mg PO DAILY #90 tabs 10/12/24 FreeStyle Minal 3 Plus Sensor #6 ea 10/25/24 (blood-glucose sensor) Allergies Allergy/AdvReac Type Severity Reaction Status Date / Time oxycodone (Percocet) Allergy Intermediate hives Verified 01/23/25 21:39 tramadol Allergy Intermediate hives Verified 01/23/25 21:39 Review of Systems Review of Systems: Yes all other systems are reviewed and are negative (As per HPI) [facility] Past Medical History Attestation statement: The following information was validated with the patient. [facility] Narrative: hypertension, diabetes, CVA, tobacco use and kidney stones Source: old records reviewed Medical History Microscopic hematuria Annual physical exam DJD (degenerative joint disease) HTN (hypertension) Surgical History History of surgery H/O lumbosacral spine surgery H/O colonoscopy History of dental surgery Family History Family History Father Stroke Diabetes mellitus Mother Diabetes mellitus Overweight History of high blood pressure Brother No problems noted. Brother Cancer Social History Social History Household Members: Family Housing: House Do you presently have visiting nurse or other home services: No Alcohol intake: never Patient Tobacco Use Status: Current everyday Tobacco user Tobacco use type: Cigarette Cigarette Packs Per Day: 0.25 Cigarettes Per Day: 5.0 Years Smoked: long time Smoked in Last 30 Days: No e-Cigarette/Vaping Use: Currently Using Use of substances other than those prescribed or required for medical reasons: No Advance Directives: Yes Advance Directives on File: Yes Advance Directives Date on File: 08/18/22 service: No Current occupational status: employed Cognitive needs: No Hearing needs: No Vision needs: Yes Physical Exam ED Vital Signs: Vital Signs - 24 hr 01/23/25 21:38 01/23/25 23:18 01/24/25 00:00 Temperature 98.4 F 98.3 F 98.3 F Pulse Rate 66 62 57 Respiratory Rate 18 18 16 Blood Pressure 191/98 H 172/94 H 181/89 H Pulse Oximetry 96 96 98 Oxygen Delivery Method Room Air Room Air Room Air 01/24/25 00:11 01/24/25 02:00 Temperature 97.7 F Pulse Rate 89 Respiratory Rate 16 Blood Pressure 154/82 H 167/88 H Pulse Oximetry 94 Oxygen Delivery Method Room Air BMI result Body Mass Index 31.8 Constitutional: ?Chronically ill-appearing, no acute distress HEENT: ?No lymphadenopathy, neck is supple, trachea midline, PERRLA, EOMI, no nystagmus Chest: ?Equal rise, no crepitus, no deformities Respiratory: ?Lungs are clear to auscultation bilaterally, no wheezes/rales/rhonchi Cardio: ?Regular rate and rhythm, no murmurs rubs or gallops, peripheral pulses strong GI: ?Soft, nondistended, nontender to palpation, positive bowel sounds in all quadrants : Deferred Skin: ?Warm, dry, no rashes Musculoskeletal: ?No deformities, normal tone Neuro: ?Alert and oriented, cranial nerves 2-12 intact, equal strength and sensation in bilateral upper extremities, decreased strength in the left foot dorsiflexion Psych: ?Normal affect, appropriate mood, no visual or auditory hallucinations Medications Administered Discontinued Medications Generic Name Dose Route Start Last Admin Trade Name Eboni PRN Reason Stop Dose Admin Lactated Ringer's 1,000 mls @ 999 mls/hr 01/23/25 23:15 01/24/25 01:25 Lr IV 01/24/25 00:15 Infused .Q1H1M ONE Infusion Lactated Ringer's 1,000 mls @ 999 mls/hr 01/24/25 00:14 01/24/25 01:25 Lr IV 01/24/25 01:14 Infused .Q1H1M ONE Infusion Lactated Ringer's 1,000 mls @ 999 mls/hr 01/24/25 03:13 01/24/25 05:12 Lr IV 01/24/25 04:13 0 mls/hr .Q1H1M ONE Titration Insulin Glargine 9 unit 01/23/25 23:16 01/23/25 23:31 Insulin Glargine,Hum.Rec.Anlog 100 Unit/Ml 10 Ml Vial SUBCUT 01/23/25 23:17 9 unit ONCE ONE Administration Insulin Glargine 9 unit 01/24/25 01:49 01/24/25 01:59 Insulin Glargine,Hum.Rec.Anlog 100 Unit/Ml 10 Ml Vial SUBCUT 07/09/25 01:50 9 unit ONCE ONE Administration Medical Decision Making Medical Decision Making [facility] Narrative: Patient presents today with chief complaint of hyperglycemia. Differential diagnosis includes ketoacidosis, hyperosmolar hyperglycemic syndrome, dehydration, infection, medication noncompliance, among many others. Broad-based work-up was initiated to evaluate the hyperglycemia further. Patient remains hemodynamically stable here in the emergency department. 2:03 a.m. patient's blood sugar has been slow to come down since the patient was eating a regular diet while receiving his fluids. Family brought it to the bedside. Patient receiving continuous IV fluid, additional dose of insulin. We had an extensive discussion regarding follow-up, use of insulin which he still has at home, being truthful with his primary care doctor. Once his blood sugar is more controlled, we will discharge home to follow-up with PCP. He has a slight elevation in his beta hydroxybutyrate however, no significant anion gap and he is essentially asymptomatic aside from slight polyuria. Low suspicion for DKA. Likely related to insulin noncompliance. 2:00 p.m. blood sugar remains elevated however, he has received 2 doses of insulin and 3 L of fluid. At this point, patient is feeling improved and is requesting discharge. He has insulin supplies at home and we had an extensive discussion how important it is to take his insulin and to follow up with his doctor. Using shared decision making, plan for discharge home to follow-up with primary care and/or specialist. Patient understands and agrees with plan for discharge. Discharged home in stable condition. Differential Diagnosis Differential Diagnoses: The differential diagnosis associated with the presentation includes (As above) Admission/Observation Consideration of admission/observation: Escalation of care including admission/observation considered Lab Data [facility] Lab Attestation statement: I reviewed the patient's lab results. 01/23/25 21:58 01/23/25 21:58 Labs: Lab Results 01/23/25 01/23/25 01/24/25 Range/Units 21:36 21:58 00:00 WBC 12.1 H (4.8-10.8) X10*3/uL RBC 5.31 (4.60-5.80) X10*6/uL Hgb 14.1 (14.0-18.0) g/dl Hct 39.9 L (42.0-52.0) % MCV 75.1 L (80.0-98.0) fL MCH 26.6 L (27.0-33.0) pg MCHC 35.3 (31.0-36.0) g/dl RDW 13.9 (11.0-16.0) % Plt Count 278 (160-400) X10*3/uL MPV 11.3 (9.4-12.4) fL Absolute Nucleated RBC 0.000 (0.0-0.012) X10*3/uL Nucleated RBC % (auto) 0.0 (0.0-0.2) /100WBC Sodium 135 (135-145) mmol/L Potassium 4.0 (3.3-5.1) mmol/L Chloride 100 (96-108) mmol/L Carbon Dioxide 25 (22-29) mmol/L Anion Gap 14 (12-20) BUN 15 (9-16) mg/dL Creatinine 1.31 (0.5-1.4) mg/dL Estim Creat Clear Calc 64.8 Estimated GFR 56 POC Glucose 566 H* 467 H* (60-115) mg/dL Random Glucose 614 H* (60-115) mg/dL Calcium 9.7 D (8.4-10.2) mg/dL Magnesium 2.3 (1.6-2.6) mg/dL Total Bilirubin 0.4 (0.0-1.0) mg/dL AST 20 (5-37) U/L ALT 20 (0-40) U/L Alkaline Phosphatase 124 H (39-117) U/L Total Protein 7.3 (6.5-8.0) g/dL Albumin 4.5 (3.5-5.0) g/dL Beta-Hydroxybutyrate 0.29 H (0.02-0.27) mmol/L Urine Color Yellow Urine Appearance Clear Urine pH 5.5 (5.0-9.0) Ur Specific [place] >= 1.030 H (1.005-1.025) Urine Protein Negative (Neg-Trace) mg/dL Urine Glucose (UA) >=1000 H (Negative) mg/dL Urine Ketones Trace (Negative) mg/dL Urine Blood Negative (Negative) Urine Nitrite Negative (Negative) Ur Leukocyte Esterase Negative (Negative) Urine RBC 0-2 (0-2) /HPF Urine WBC 0-5 (0-5) /HPF Ur Squamous Epith Cells 0-2 (0-2) /HPF Urine Bacteria None Seen (None Seen) Hyaline Casts 0-2 (0-2) /LPF 01/24/25 01/24/25 01/24/25 Range/Units 00:41 01:37 02:51 WBC (4.8-10.8) X10*3/uL RBC (4.60-5.80) X10*6/uL Hgb (14.0-18.0) g/dl Hct (42.0-52.0) % MCV (80.0-98.0) fL MCH (27.0-33.0) pg MCHC (31.0-36.0) g/dl RDW (11.0-16.0) % Plt Count (160-400) X10*3/uL MPV (9.4-12.4) fL Absolute Nucleated RBC (0.0-0.012) X10*3/uL Nucleated RBC % (auto) (0.0-0.2) /100WBC Sodium (135-145) mmol/L Potassium (3.3-5.1) mmol/L Chloride (96-108) mmol/L Carbon Dioxide (22-29) mmol/L Anion Gap (12-20) BUN (9-16) mg/dL Creatinine (0.5-1.4) mg/dL Estim Creat Clear Calc Estimated GFR POC Glucose 429 H* 419 H* 371 H* (60-115) mg/dL Random Glucose (60-115) mg/dL Calcium (8.4-10.2) mg/dL Magnesium (1.6-2.6) mg/dL Total Bilirubin (0.0-1.0) mg/dL AST (5-37) U/L ALT (0-40) U/L Alkaline Phosphatase (39-117) U/L Total Protein (6.5-8.0) g/dL Albumin (3.5-5.0) g/dL Beta-Hydroxybutyrate (0.02-0.27) mmol/L Urine Color Urine Appearance Urine pH (5.0-9.0) Ur Specific [place] (1.005-1.025) Urine Protein (Neg-Trace) mg/dL Urine Glucose (UA) (Negative) mg/dL Urine Ketones (Negative) mg/dL Urine Blood (Negative) Urine Nitrite (Negative) Ur Leukocyte Esterase (Negative) Urine RBC (0-2) /HPF Urine WBC (0-5) /HPF Ur Squamous Epith Cells (0-2) /HPF Urine Bacteria (None Seen) Hyaline Casts (0-2) /LPF 01/24/25 01/24/25 Range/Units 03:12 04:00 WBC (4.8-10.8) X10*3/uL RBC (4.60-5.80) X10*6/uL Hgb (14.0-18.0) g/dl Hct (42.0-52.0) % MCV (80.0-98.0) fL MCH (27.0-33.0) pg MCHC (31.0-36.0) g/dl RDW (11.0-16.0) % Plt Count (160-400) X10*3/uL MPV (9.4-12.4) fL Absolute Nucleated RBC (0.0-0.012) X10*3/uL Nucleated RBC % (auto) (0.0-0.2) /100WBC Sodium (135-145) mmol/L Potassium (3.3-5.1) mmol/L Chloride (96-108) mmol/L Carbon Dioxide (22-29) mmol/L Anion Gap (12-20) BUN (9-16) mg/dL Creatinine (0.5-1.4) mg/dL Estim Creat Clear Calc Estimated GFR POC Glucose 352 H* 351 H* (60-115) mg/dL Random Glucose (60-115) mg/dL Calcium (8.4-10.2) mg/dL Magnesium (1.6-2.6) mg/dL Total Bilirubin (0.0-1.0) mg/dL AST (5-37) U/L ALT (0-40) U/L Alkaline Phosphatase (39-117) U/L Total Protein (6.5-8.0) g/dL Albumin (3.5-5.0) g/dL Beta-Hydroxybutyrate (0.02-0.27) mmol/L Urine Color Urine Appearance Urine pH (5.0-9.0) Ur Specific [place] (1.005-1.025) Urine Protein (Neg-Trace) mg/dL Urine Glucose (UA) (Negative) mg/dL Urine Ketones (Negative) mg/dL Urine Blood (Negative) Urine Nitrite (Negative) Ur Leukocyte Esterase (Negative) Urine RBC (0-2) /HPF Urine WBC (0-5) /HPF Ur Squamous Epith Cells (0-2) /HPF Urine Bacteria (None Seen) Hyaline Casts (0-2) /LPF Independent Historian Clinical information obtained from an independent historian. History obtained from or confirmed by: Other (daughter) Chronic Conditions Patient?s care impacted by: Diabetes and Hypertension Discharge Plan Discharge Clinical Impression: Dehydration, mild, Polyuria, Noncompliance with medication regimen Uncontrolled diabetes mellitus with hyperglycemia Qualifiers: Diabetes mellitus type: type 2 Qualified Code(s): E11.65 - Type 2 diabetes mellitus with hyperglycemia Patient Disposition: Home, Self-Care Instructions: Diabetic Hyperglycemia (ED), Type 2 Diabetes Management for Adults (ED) Additional Instructions: Follow-up with your primary care doctor as soon as possible regarding your diabetes medication regimen. Start taking insulin as needed for blood sugars greater than 250. Continue taking your metformin as well. Check your blood sugars in the morning, before every meal and at night before bed. Avoid sugary foods and drinks. Return to the emergency department with any new or worsening symptoms including: Shortness of breath, chest pain, fever greater than 100? inability to tolerate food or drink, any new symptom that concerns you. Call 911 with any medical emergency. Prescriptions: No Action (DME) pen needle, diabetic 32 gauge x 5/32 needle See Rx Instructions .Route Qty: 400 3RF Rx Instructions: As directed to inject insulin 4 times per day metformin 500 mg tablet 500 mg PO DAILY Qty: 90 1RF (DME) FreeStyle Minal 3 Plus Sensor Device See Rx Instructions .Route Qty: 6 3RF Rx Instructions: Test blood sugar 4 times a day, change sensor every 15 days (DME) blood-glucose meter [FreeStyle Lite Meter] Kit See Rx Instructions .Route Qty: 1 0RF Rx Instructions: As directed (DME) FreeStyle Lite Strips Strip See Rx Instructions .Route Qty: 100 0RF Rx Instructions: As directed (DME) lancets 17 gauge misc See Rx Instructions .Route Qty: 200 0RF Rx Instructions: As directed (DME) blood pressure test kit-large Kit See Rx Instructions .ROUTE .MEDSUPPLY Qty: 1 0RF Rx Instructions: As directed aspirin 325 mg tablet 325 mg PO DAILY docusate sodium 100 mg capsule 100 mg PO DAILY atorvastatin 80 mg tablet 80 mg PO BEDTIME Qty: 90 0RF lisinopril-hydrochlorothiazide 20-12.5 mg tablet 2 tab PO DAILY Qty: 60 1RF clopidogrel 75 mg tablet 75 mg PO DAILY Qty: 90 0RF amlodipine 10 mg tablet 10 mg PO DAILY Qty: 90 1RF Print Language: Greek
[2025-01-23 23:18] VITALS: BP 172/94; PULSE 62; RESP 18; TEMP 36.8; O2SAT 96
[2025-01-23] MEDS: Lactated Ringers 1,000 ML 999 ML IV (23:29)
[2025-01-23] MEDS: Insulin Glargine,Hum.rec.anlog 100 UNIT/ML 10 ML VIAL 9 UNIT SUBCUT (23:31)
[2025-01-24] VITALS: BP 181/89; PULSE 57; RESP 16; TEMP 36.8; O2SAT 98
[2025-01-24 00:06] LABS: Glucose, Whole Blood 467 mg/dL (60-115)
[2025-01-24 00:11] VITALS: BP 154/82
[2025-01-24] MEDS: Lactated Ringers 1,000 ML 999 ML IV ×2 (00:19→03:16)
--- NOTE | 2025-01-24 00:23 | PC.NURSE ---
pt medicated per mar
[2025-01-24 00:45] LABS: Glucose, Whole Blood 429 mg/dL (60-115)
[2025-01-24 01:41] LABS: Glucose, Whole Blood 419 mg/dL (60-115)
[2025-01-24] MEDS: Insulin Glargine,Hum.rec.anlog 100 UNIT/ML 10 ML VIAL 9 UNIT SUBCUT (01:59)
[2025-01-24 02:00] VITALS: BP 167/88; PULSE 89; RESP 16; TEMP 36.5; O2SAT 94
--- NOTE | 2025-01-24 02:14 | PC.NURSE ---
provider into discuss plan of care, medicated per mar.
[2025-01-24 02:56] LABS: Glucose, Whole Blood 371 mg/dL (60-115)
[2025-01-24 03:15] LABS: Glucose, Whole Blood 352 mg/dL (60-115)
--- NOTE | 2025-01-24 03:28 | PC.NURSE ---
poc taken and reported to provider. fluids hung per order.
[2025-01-24 04:04] LABS: Glucose, Whole Blood 351 mg/dL (60-115)
--- NOTE | 2025-01-24 05:06 | PC.NURSE ---
Notified provider of POC, pt requesting to be discharged home, Iv removed, awaiting pt discharge papers.
[2025-01-24 05:31] VITALS: BP 167/88; PULSE 89; RESP 16; TEMP 36.5; O2SAT 94
== END 2025-01-24 05:32 | disposition home or self-care (01) ==
PROVIDERS: Emergency Provider Emergency Medicine; PCP Internal Medicine
DX: E86.0 Dehydration (principal); R35.0 Frequency of micturition; E11.65 Type 2 diabetes mellitus with hyperglycemia; Z91.148 Patient's other noncompliance with medication regimen for other reason; I10 Essential (primary) hypertension; Z79.84 Long term (current) use of oral hypoglycemic drugs; Z79.82 Long term (current) use of aspirin; Z79.02 Long term (current) use of antithrombotics/antiplatelets; Z79.899 Other long term (current) drug therapy; F17.210 Nicotine dependence, cigarettes, uncomplicated
CPT/HCPCS: 36415; 80053; 81001; 82010; 82947; 83735; 85027; 96360; 96361; 99285; J7120

== ENCOUNTER 2025-01-25 09:45 | Outpatient (AMB) | payer OTHER, SELFPAY ==
[2025-01-25 09:46] VITALS: BP 132/80; PULSE 64; RESP 18; TEMP 36.7; O2SAT 98; BMI 32.6
--- NOTE | 2025-01-25 09:46 | A.OFFPC_ITS ---
Vital Signs 01/25/25 09:46 Height 5 ft 7 in Weight 208 lb BMI 32.6 BP 132/80 Blood Pressure Location Rt brachial Position Sitting Respiration 18 Pulse 64 Pulse Source Pulse Oximeter Temp 98.0 F Temp Source Oral Pulse Oximetry (%) 98 Oxygen Delivery Method Room Air Intake Visit Reasons: ED follow up, blood sugar Intake Note: Pt is here today for ER follow up visit. Allergies oxycodone (Percocet) Allergy (Intermediate, Verified 01/25/25 09:53) hives tramadol Allergy (Intermediate, Verified 01/25/25 09:53) hives Medication List - Last Reconciled 01/25/25 by Bridgette Coburn MD amlodipine 10 mg PO DAILY aspirin 325 mg PO DAILY atorvastatin 80 mg PO BEDTIME blood pressure test kit-large As directed blood sugar diagnostic (FreeStyle Lite Strips) As directed blood-glucose meter (FreeStyle Lite Meter kit) As directed clopidogrel 75 mg PO DAILY docusate sodium 100 mg PO DAILY FreeStyle Minal 3 Plus Sensor (blood-glucose sensor) Test blood sugar 4 times a day, change sensor every 15 days NS lancets As directed lisinopril-hydrochlorothiazide 20-12.5 mg 2 tabs PO DAILY metformin 500 mg PO DAILY pen needle, diabetic As directed to inject insulin 4 times per day Tobacco use date assessed: 01/25/25 Dental Screening Dental Screen Date: 10/23/24 HPI ED follow up, blood sugar HPI Details Patient presents for the follow-up of ER visit for polyuria polydipsia was found to have blood glucose over 600. Patient has not been compliant with his medications or ADA diet. He has been angry and upset because of his chronic since CVA right lower extremity weakness and having difficulties at work walking longer distances. Patient denies depression or suicide ideation [facility] Medical History Microscopic hematuria Annual physical exam DJD (degenerative joint disease) HTN (hypertension) Surgical History History of surgery H/O lumbosacral spine surgery H/O colonoscopy History of dental surgery Family History Father Stroke Diabetes mellitus Mother Diabetes mellitus Overweight History of high blood pressure Brother No problems noted. Brother Cancer Social History Household Members: Family Housing: House Do you presently have visiting nurse or other home services: No Alcohol intake: never Patient Tobacco Use Status: Current everyday Tobacco user Tobacco use type: Cigarette Cigarette Packs Per Day: 0.25 Cigarettes Per Day: 5.0 Years Smoked: long time e-Cigarette/Vaping Use: Currently Using Advance Directives Date on File: 08/18/22 service: No Current occupational status: employed Cognitive needs: No Hearing needs: No Vision needs: Yes Questionnaire Thrive Questionnaire Date Thrive assessed: 07/20/24 I am a: Patient What is your living situation today?: I have a steady place to live Within the past 12 months, did the food you bought not last and you didn't have the money to get more?: Never true Within the past 12 months, did you worry whether your food would run out before you got money to buy more?: Never true Do you have trouble paying for medicines?: No Do you have trouble getting transportation to medical appointments?: No Do you have trouble paying your heating and electricity bill?: Yes Do you have trouble taking care of your child, family member or friend?: No Do you have trouble with day-to-day activities such as bathing, preparing meals, shopping, managing finances, etc.?: No Are you currently unemployed and looking for a job?: No Are you interested in more education?: No Please select the resources that you would like help with: Utilities Currently or been in a relationship where the following occur: No concerns reported THRIVE Score: 1 SUNIL-7 AMB Questionnaire SUNIL-7 Date SUNIL - 7 assessed: 10/23/24 Source: Developed by Drs. Radames Bravo, Lisset Sinclair, Tapan Haile and colleagues, with an educational nancy from [employer]. Review of Systems Const All systems reviewed & are unremarkable except as noted in HPI and below Eyes Reports no additional complaints ENT Reports no additional complaints Resp Reports no additional complaints GI Reports no additional complaints Reports no additional complaints Physical exam (Primary Care) Vital Signs: Last Vital Signs Temp 98.0 F 01/25/25 09:46 Pulse 64 01/25/25 09:46 Resp 18 01/25/25 09:46 BP 132/80 01/25/25 09:46 Pulse Ox 98 01/25/25 09:46 Oxygen Delivery Method Room Air 01/25/25 09:46 BMI result Body Mass Index 32.6 Tobacco/Smoking Status: Tobacco use Status Tobacco use date assessed 01/25/25 01/25/25 09:47 Patient Tobacco Use Status Current everyday Tobacco 01/25/25 09:47 Tobacco use type Cigarette 01/25/25 09:47 e-Cigarette/Vaping Use Currently Using 01/25/25 09:47 Thrive Assessment: Date of Thrive Assessment Date Thrive assessed 07/20/24 01/25/25 09:47 Currently or been in a relationship where the following occur: No concerns reported Const General: no acute distress HENMT Head: Yes normal to inspection Eyes General: appearance normal, both eyes and all related structures Neck Neck: Yes no lymphadenopathy and Yes supple Resp Effort & Inspection: normal respiratory effort Auscultation: clear to auscultation bilaterally Cardio Rhythm: regular rhythm Heart sounds: S1 normal heart sound present and S2 normal heart sound present Results AMB Hemoglobin A1c AMB Hemoglobin A1c 10.7 % Last Edit by VIKTORIA Kong on 01/25/25 10: 08 Results Reviewed Results Reviewed: Laboratory Last Values Hgb A1c (Clinic) 10.7 % (4.0-6.0) H 01/25/25 09:59 Coding Level of Care Code Est Pt Level 4 (41071) Complex EM visit Add On G2211 Diagnoses Diabetes type 2, controlled E11.9 Essential hypertension I10 Hypertension type: essential hypertension Cerebrovascular accident (CVA) of right thalamus I63.81 Assessment & Plan Assessment & Plan (1) Diabetes type 2, controlled: Comment: Patient can tolerate only 500 mg of metformin Code(s): E11.9 - Type 2 diabetes mellitus without complications Category: Medical Plan: ADA diet increase physical activity discussed with the patient. He will restart metformin and 20 units of Lantus. Patient was advised to monitor his blood glucose 3 times a day before meals and record the readings. He will follow-up in 1 week (2) HTN (hypertension): Code(s): I10 - Essential (primary) hypertension Category: Medical Qualifiers: Hypertension type: essential hypertension Qualified Code(s): I10 - Essential (primary) hypertension Plan: Continue current medications (3) Cerebrovascular accident (CVA) of right thalamus: Comment: LEFT-SIDED WEAKNESS, 04/18/2024 Code(s): I63.81 - Other cerebral infarction due to occlusion or stenosis of small artery Category: Medical Plan: Patient declined referral to physical therapy for persistent lower extremity weakness. He is planning to apply for disability Orders: Orders AMB Hemoglobin A1c Today Z13.9 - Encounter for screening, unspecified Medications: New insulin glargine (Lantus Solostar U-100 Insulin) 20 units (0.2 mL) subcut QAM 15 mL 1RF Refilled amlodipine 10 mg PO DAILY 90 tabs 3RF lisinopril-hydrochlorothiazide 20-12.5 mg 2 tabs PO DAILY 90 tabs 3RF FreeStyle Minal 3 Plus Sensor (blood-glucose sensor) Test blood sugar 4 times a day, change sensor every 15 days 6 ea 3RF NS E11.9 - Type 2 diabetes mellitus without complications atorvastatin 80 mg PO BEDTIME 90 tabs 3RF metformin 500 mg PO DAILY 90 tabs 3RF Discontinued clopidogrel Discontinued Reason: Doctor's Order 75 mg PO DAILY 90 tabs 0RF
== END 2025-01-25 10:31 | disposition home or self-care (01) ==
LOC: HO.HMCC 09:46
PROVIDERS: PCP Internal Medicine; Visit Provider Internal Medicine
DX: E11.9 Type 2 diabetes mellitus without complications (principal); I10 Essential (primary) hypertension; I63.81 Other cerebral infarction due to occlusion or stenosis of small artery; Z13.9 Encounter for screening, unspecified

== ENCOUNTER → 2025-01-25 09:45 | Outpatient (BNVA) | payer OTHER, SELFPAY | PROVIDERS: PCP Internal Medicine; Visit Provider Internal Medicine | DX: I69.341 Monoplegia of lower limb following cerebral infarction affecting right dominant side (principal); E11.9 Type 2 diabetes mellitus without complications; I10 Essential (primary) hypertension | CPT/HCPCS: 83036; 99212 ==

== ENCOUNTER 2025-01-31 10:05 | Outpatient (REF) | payer OTHER, SELFPAY ==
[2025-01-31 13:41] LABS: MANUAL DIFF FLAG NO
[2025-01-31 13:46] LABS: Hematocrit 40.9 % (42.0-52.0); Hemoglobin 13.9 g/dl (14.0-18.0); Imm Gran Abs Auto 0.06 X10*3/uL (0.00-0.03); Imm Gran Pct Auto 0.5 % (0.0-0.4); Lymphocytes Absolute Auto 2.3 X10*3/uL (1.2-4.9); Mean Corpuscular HGB Conc 34.0 g/dl (31.0-36.0); Mean Corpuscular Hemoglobin 26.4 pg (27.0-33.0); Mean Corpuscular Volume 77.8 fL (80.0-98.0); NRBC Abs Auto 0.000 X10*3/uL (0.0-0.012); NRBC Pct Auto 0.0 /100WBC (0.0-0.2); Platelet Count 279 X10*3/uL (160-400); Red Blood Count 5.26 X10*6/uL (4.60-5.80); White Blood Count 13.0 X10*3/uL (4.8-10.8)
[2025-01-31 13:58] LABS: Alanine Aminotransferase 19 U/L (0-40); Albumin Level 4.3 g/dL (3.5-5.0); Alkaline Phosphatase 100 U/L (39-117); Anion Gap 12 (12-20); Aspartate Amino Transferase 32 U/L (5-37); Blood Urea Nitrogen 30 mg/dL (9-16); Calcium 9.1 mg/dL (8.4-10.2); Carbon Dioxide 25 mmol/L (22-29); Chloride 105 mmol/L (96-108); Cholesterol 96 mg/dL (<200); Estimated Glomerular Filt Rate 48; HDL Cholesterol 28 mg/dL (>40); Potassium 3.5 mmol/L (3.3-5.1); Sodium 138 mmol/L (135-145); Total Protein 7.0 g/dL (6.5-8.0); Triglycerides 122 mg/dL (<150)
[2025-01-31 14:02] LABS: Hemoglobin A1C 362.9132 umol/L; Total Hemoglobin (HGBA1C) 3638.6238 umol/L
== END 2025-01-31 10:06 | disposition home or self-care (01) ==
LOC: HO.HMGCLDS 10:05
PROVIDERS: PCP Internal Medicine; Visit Provider Internal Medicine
DX: I10 Essential (primary) hypertension (principal); E11.9 Type 2 diabetes mellitus without complications; Z86.73 Personal history of transient ischemic attack (TIA), and cerebral infarction without residual deficits; Z79.4 Long term (current) use of insulin
CPT/HCPCS: 36415; 80053; 80061; 83036; 85025; 99212

== ENCOUNTER 2025-01-31 10:05 | Outpatient (AMB) | payer OTHER, SELFPAY ==
[2025-01-31 10:11] VITALS: BP 112/74; PULSE 65; RESP 18; TEMP 36.7; O2SAT 94; BMI 32.1
--- NOTE | 2025-01-31 10:11 | MHC.PC.OV ---
Vital Signs 01/31/25 10:11 Height 5 ft 7 in Weight 205 lb BMI 32.1 BP 112/74 Blood Pressure Location Rt brachial Position Sitting Respiration 18 Pulse 65 Pulse Source Pulse Oximeter Temp 98.0 F Temp Source Oral Pulse Oximetry (%) 94 Oxygen Delivery Method Room Air Intake Visit Reasons: 1 week follow up Intake Note: Pt is here today for a 1 week follow up visit on DM. Pt states that one of the medication that he started is causing numbness in his fingers. Allergies oxycodone (Percocet) Allergy (Intermediate, Verified 01/31/25 10:16) hives tramadol Allergy (Intermediate, Verified 01/31/25 10:16) hives Medication List - Last Reconciled 01/31/25 by Bridgette Coburn MD amlodipine 10 mg PO DAILY aspirin 325 mg PO DAILY atorvastatin 80 mg PO BEDTIME blood pressure test kit-large As directed blood sugar diagnostic (FreeStyle Lite Strips) As directed blood-glucose meter (FreeStyle Lite Meter kit) As directed docusate sodium 100 mg PO DAILY FreeStyle Minal 3 Plus Sensor (blood-glucose sensor) Test blood sugar 4 times a day, change sensor every 15 days NS insulin glargine (Lantus Solostar U-100 Insulin) 30 units (0.3 mL) subcut QAM lancets As directed lisinopril-hydrochlorothiazide 20-12.5 mg 2 tabs PO DAILY metformin 500 mg PO DAILY pen needle, diabetic As directed to inject insulin 4 times per day Tobacco use date assessed: 01/25/25 Dental Screening Dental Screen Date: 10/23/24 HPI 1 week follow up HPI Details Patient presents for the follow-up. He reports improving blood glucose but still between 250-300. Patient has been taking 10 units of Lantus and on average 20 units of short-acting insulin before breakfast. Patient has been eating well-balanced diet and he denies polyuria polydipsia. He reports right hand( thumb index and middle finger) burning pain and tingling in the morning when waking up. 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 Hypertension is controlled on current medications [facility] Medical History (Updated 01/31/25 @ 10:39 by Bridgette Coburn MD) Nicotine dependence Cerebrovascular accident (CVA) of right thalamus Diabetes type 2, controlled Microscopic hematuria Annual physical exam DJD (degenerative joint disease) HTN (hypertension) Surgical History History of surgery H/O lumbosacral spine surgery H/O colonoscopy History of dental surgery Family History Father Stroke Diabetes mellitus Mother Diabetes mellitus Overweight History of high blood pressure Brother No problems noted. Brother Cancer Social History Household Members: Family Housing: House Do you presently have visiting nurse or other home services: No Alcohol intake: never Patient Tobacco Use Status: Current everyday Tobacco user Tobacco use type: Cigarette Cigarette Packs Per Day: 0.25 Cigarettes Per Day: 5.0 Years Smoked: long time e-Cigarette/Vaping Use: Currently Using Advance Directives Date on File: 08/18/22 service: No Current occupational status: employed Cognitive needs: No Hearing needs: No Vision needs: Yes Questionnaire Thrive Questionnaire Date Thrive assessed: 07/20/24 I am a: Patient What is your living situation today?: I have a steady place to live Within the past 12 months, did the food you bought not last and you didn't have the money to get more?: Never true Within the past 12 months, did you worry whether your food would run out before you got money to buy more?: Never true Do you have trouble paying for medicines?: No Do you have trouble getting transportation to medical appointments?: No Do you have trouble paying your heating and electricity bill?: Yes Do you have trouble taking care of your child, family member or friend?: No Do you have trouble with day-to-day activities such as bathing, preparing meals, shopping, managing finances, etc.?: No Are you currently unemployed and looking for a job?: No Are you interested in more education?: No Please select the resources that you would like help with: Utilities Currently or been in a relationship where the following occur: No concerns reported THRIVE Score: 1 SUNIL-7 AMB Questionnaire SUNIL-7 Date SUNIL - 7 assessed: 10/23/24 Source: Developed by Drs. Radames Bravo, Lisset Sinclair, Tapan Haile and colleagues, with an educational nancy from [employer]. Review of Systems Const All systems reviewed & are unremarkable except as noted in HPI and below Eyes Reports no additional complaints ENT Reports no additional complaints Card Reports no additional complaints Resp Reports no additional complaints GI Reports no additional complaints Reports no additional complaints Physical exam (Primary Care) Vital Signs: Last Vital Signs Temp 98.0 F 01/31/25 10:11 Pulse 65 01/31/25 10:11 Resp 18 01/31/25 10:11 BP 112/74 01/31/25 10:11 Pulse Ox 94 01/31/25 10:11 Oxygen Delivery Method Room Air 01/31/25 10:11 BMI result Body Mass Index 32.1 Tobacco/Smoking Status: Tobacco use Status Tobacco use date assessed 01/25/25 01/31/25 10:11 Patient Tobacco Use Status Current everyday Tobacco 01/31/25 10:11 Tobacco use type Cigarette 01/31/25 10:11 e-Cigarette/Vaping Use Currently Using 01/31/25 10:11 Thrive Assessment: Date of Thrive Assessment Date Thrive assessed 07/20/24 01/31/25 10:11 Currently or been in a relationship where the following occur: No concerns reported HENMT Head: Yes normal to inspection Resp Effort & Inspection: normal respiratory effort Auscultation: clear to auscultation bilaterally Cardio Rhythm: regular rhythm Heart sounds: S1 normal heart sound present and S2 normal heart sound present Coding Level of Care Code Est Pt Level 4 (33000) Diagnoses Essential hypertension I10 Hypertension type: essential hypertension Diabetes type 2, controlled E11.9 Cerebrovascular accident (CVA) of right thalamus I63.81 Assessment & Plan Assessment & Plan (1) HTN (hypertension): Code(s): I10 - Essential (primary) hypertension Category: Medical Qualifiers: Hypertension type: essential hypertension Qualified Code(s): I10 - Essential (primary) hypertension Plan: Continue current medications (2) Diabetes type 2, controlled: Code(s): E11.9 - Type 2 diabetes mellitus without complications Category: Medical Plan: Increase Lantus to 30 units daily and continue short-acting insulin with a sliding scale 3 times a day before meals For glucose between 150 to 200 take 10 units and over 200 15 units, ADA diet increase exercise discussed with the patient follow-up in 1 week (3) Cerebrovascular accident (CVA) of right thalamus: Comment: LEFT-SIDED WEAKNESS, 04/18/2024 Code(s): I63.81 - Other cerebral infarction due to occlusion or stenosis of small artery Category: Medical Plan: Patient complains of persistent weakness on the left side interfering with his job duties and is applying for disability Orders: Orders Comprehensive Met. Panel Today I10 - Essential (primary) hypertension Medications: Changed From insulin glargine (Lantus Solostar U-100 Insulin) 20 units (0.2 mL) subcut QAM 15 mL 1RF To insulin glargine (Lantus Solostar U-100 Insulin) 30 units (0.3 mL) subcut QAM 15 mL 1RF
== END 2025-01-31 10:41 | disposition home or self-care (01) ==
LOC: HO.HMCC 10:05
PROVIDERS: PCP Internal Medicine; Visit Provider Internal Medicine
DX: I10 Essential (primary) hypertension (principal); E11.9 Type 2 diabetes mellitus without complications; I63.81 Other cerebral infarction due to occlusion or stenosis of small artery

== ENCOUNTER 2025-02-13 10:05 | Outpatient (AMB) | payer OTHER, SELFPAY ==
[2025-02-13 10:08] VITALS: BP 128/78; PULSE 68; RESP 18; TEMP 36.6; O2SAT 96; BMI 31.8
--- NOTE | 2025-02-13 10:08 | A.OFFPC_ITS ---
Vital Signs 02/13/25 10:08 Height 5 ft 7 in Weight 203 lb BMI 31.8 BP 128/78 Blood Pressure Location Rt brachial Position Sitting Respiration 18 Pulse 68 Pulse Source Pulse Oximeter Temp 97.8 F Temp Source Oral Pulse Oximetry (%) 96 Oxygen Delivery Method Room Air Intake Visit Reasons: 3 months f/up A1C needed Intake Note: Pt is here today for 3 months follow up visit. Allergies oxycodone (Percocet) Allergy (Intermediate, Verified 02/13/25 10:11) hives tramadol Allergy (Intermediate, Verified 02/13/25 10:11) hives Medication List - Last Reconciled 02/13/25 by Bridgette Coburn MD amlodipine 10 mg PO DAILY aspirin 325 mg PO DAILY atorvastatin 80 mg PO BEDTIME blood pressure test kit-large As directed blood sugar diagnostic (FreeStyle Lite Strips) As directed blood-glucose meter (FreeStyle Lite Meter kit) As directed docusate sodium 100 mg PO DAILY FreeStyle Minal 3 Plus Sensor (blood-glucose sensor) Test blood sugar 4 times a day, change sensor every 15 days NS insulin glargine (Lantus Solostar U-100 Insulin) 30 units (0.3 mL) subcut QAM lancets As directed lisinopril-hydrochlorothiazide 20-12.5 mg 2 tabs PO DAILY metformin 500 mg PO DAILY pen needle, diabetic As directed to inject insulin 4 times per day Tobacco use date assessed: 02/13/25 Dental Screening Dental Screen Date: 10/23/24 HPI 3 months f/up A1C needed HPI Details Patient presents for the follow-up. He reports improved blood glucose readings down to 140 in the morning. He has been taking Lantus twice a day 10 units at night and usually about 20 units in the morning. Patient has been following ADA diet. Hypertension hyperlipidemia controlled on medications [facility] Medical History Nicotine dependence Cerebrovascular accident (CVA) of right thalamus Diabetes type 2, controlled Microscopic hematuria Annual physical exam DJD (degenerative joint disease) HTN (hypertension) Surgical History History of surgery H/O lumbosacral spine surgery H/O colonoscopy History of dental surgery Family History Father Stroke Diabetes mellitus Mother Diabetes mellitus Overweight History of high blood pressure Brother No problems noted. Brother Cancer Social History Household Members: Family Housing: House Do you presently have visiting nurse or other home services: No Alcohol intake: never Patient Tobacco Use Status: Current everyday Tobacco user Tobacco use type: Cigarette Cigarette Packs Per Day: 0.25 Cigarettes Per Day: 5.0 Years Smoked: long time e-Cigarette/Vaping Use: Currently Using Advance Directives Date on File: 08/18/22 service: No Current occupational status: employed Cognitive needs: No Hearing needs: No Vision needs: Yes Questionnaire Thrive Questionnaire Date Thrive assessed: 07/20/24 I am a: Patient What is your living situation today?: I have a steady place to live Within the past 12 months, did the food you bought not last and you didn't have the money to get more?: Never true Within the past 12 months, did you worry whether your food would run out before you got money to buy more?: Never true Do you have trouble paying for medicines?: No Do you have trouble getting transportation to medical appointments?: No Do you have trouble paying your heating and electricity bill?: Yes Do you have trouble taking care of your child, family member or friend?: No Do you have trouble with day-to-day activities such as bathing, preparing meals, shopping, managing finances, etc.?: No Are you currently unemployed and looking for a job?: No Are you interested in more education?: No Please select the resources that you would like help with: Utilities Currently or been in a relationship where the following occur: No concerns reported THRIVE Score: 1 SUNIL-7 AMB Questionnaire SUNIL-7 Date SUNIL - 7 assessed: 10/23/24 Source: Developed by Drs. Radames Bravo, Lisset Sinclair, Tapan Haile and colleagues, with an educational nancy from [employer]. Review of Systems Const All systems reviewed & are unremarkable except as noted in HPI and below Eyes Reports no additional complaints ENT Reports no additional complaints Card Reports no additional complaints Resp Reports no additional complaints GI Reports no additional complaints Physical exam (Primary Care) Vital Signs: Last Vital Signs Temp 97.8 F 02/13/25 10:08 Pulse 68 02/13/25 10:08 Resp 18 02/13/25 10:08 BP 128/78 02/13/25 10:08 Pulse Ox 96 02/13/25 10:08 Oxygen Delivery Method Room Air 02/13/25 10:08 BMI result Body Mass Index 31.8 Tobacco/Smoking Status: Tobacco use Status Tobacco use date assessed 02/13/25 02/13/25 10:14 Patient Tobacco Use Status Current everyday Tobacco 02/13/25 10:08 Tobacco use type Cigarette 02/13/25 10:08 e-Cigarette/Vaping Use Currently Using 02/13/25 10:08 Thrive Assessment: Date of Thrive Assessment Date Thrive assessed 07/20/24 02/13/25 10:08 Currently or been in a relationship where the following occur: No concerns reported Const General: no acute distress HENMT Head: Yes normal to inspection Face and sinus: Yes normal facial exam Eyes General: appearance normal, both eyes and all related structures Neck Neck: Yes supple Resp Effort & Inspection: normal respiratory effort Auscultation: clear to auscultation bilaterally Cardio Rhythm: regular rhythm Heart sounds: S1 normal heart sound present and S2 normal heart sound present GI Inspection: Yes normal to inspection Coding Level of Care Code Est Pt Level 4 (02625) Diagnoses Essential hypertension I10 Hypertension type: essential hypertension Diabetes type 2, controlled E11.9 Hyperlipidemia E78.5 Assessment & Plan Assessment & Plan (1) HTN (hypertension): Code(s): I10 - Essential (primary) hypertension Category: Medical Qualifiers: Hypertension type: essential hypertension Qualified Code(s): I10 - Essential (primary) hypertension Plan: Continue current medications (2) Diabetes type 2, controlled: Code(s): E11.9 - Type 2 diabetes mellitus without complications Category: Medical Plan: Increase Lantus to 30 units at night and start Humalog with sliding scale before meals. Continue metformin. ADA diet eating regular meals and increasing physical activity discussed with the patient. Follow-up in 1 month (3) Hyperlipidemia: Code(s): E78.5 - Hyperlipidemia, unspecified Category: Medical Plan: Continue statin Medications: New insulin lispro (Humalog KwikPen (U-100) Insulin) if more than 120 5 units, if more 180 10 units before meals 5 units (0.05 mL) subcut TID 15 mL 3RF insulin lispro (Humalog KwikPen (U-100) Insulin) if more than 120 5 units, if more 180 10 units before meals 5 units (0.05 mL) subcut TID 15 mL 3RF Refilled insulin glargine (Lantus Solostar U-100 Insulin) 30 units (0.3 mL) subcut QAM 15 mL 1RF
--- OUTSIDE RECORDS SUMMARY | 2025-02-13 10:50 | XMS_ITS | Clinical Summary ---
Author Organization [address] [facility] Address [address] [place] [address] Phone Care Team Providers Care Associate [employer] Name Role Phone Scar Kong MD Primary Care Provider [phone] Social History Tobacco Use Types Packs/Day Years Used Date Smoking Tobacco: Never Assessed Sex and Gender Information Value Date Recorded Sex Assigned at Not on file Legal Sex Male 9:36 AM EST Gender Identity Not on file Sexual Orientation Not on file Plan of Treatment Upcoming Encounters Date Type Department Care Team (Late st Contact Info) Description 03/07/2025 5:00 PM EDT Evaluation [facility] [address] [address] Radames Chavez, PT Health Maintenance Due Date Last Done Comments DTaP,Tdap,and Td Vaccines (1 - Tdap) 1983 Pneumococcal Vaccine: 50+ Ye ars (1 of 1 - PCV) 2014 Zoster Vaccines (1 of 2) 2014 COVID-19 Vaccine ( - 2023-2 5 season) 2024 Cholesterol Screening (Lipid Panel) 05/12/2024 Colorectal Cancer Screening: Colonoscopy 05/12/2024 HIV Screening 05/12/2024 Hepatitis C Screening 05/12/2024 Social Influencers of Health Screening 05/12/2024 Depression Screening 07/19/2024 Influenza Vaccine (#1) 2025 RSV Immunization Adult Patie nts (1 - 1-dose 75+ series) 2039 HIB Vaccines Aged Out No longer eligi ble based on patient's age to complete this topic HPV Vaccines Aged Out No longer eligi ble based on patient's age to complete this topic Hepatitis A Vaccines Aged Out No long er eligible based on patient's age to complete this topic Hepatitis B Vaccines Aged Out No long er eligible based on patient's age to complete this topic IPV Vaccines Aged Out No longer eligi ble based on patient's age to complete this topic MMR Vaccines Aged Out No longer eligi ble based on patient's age to complete this topic Meningococcal ACWY Vaccine Aged Out N o longer eligible based on patient's age to complete this topic Meningococcal B Vaccine Aged Out No l onger eligible based on patient's age to complete this topic RSV Immunization Patients Un valentino 20 months Aged Out No longer eligible b ased on patient's age to complete this topic Varicella Vaccines Aged Out No longer eligible based on patient's age to complete this topic Insurance PLAN Advance Directives Documents on File Type Date Recorded Patient [employer] Traffic [employer] Specialist Expl anation Health Care Decision (hx) 04/24/2024 DAISHA LÓPEZ DIRECTIVE Care Teams Associate [employer] Relationship Specialty Start Date End Date Scar Kong MD [address] [place] [address] PCP - General Internal Medicine 02/07/25
== END 2025-02-13 13:34 | disposition home or self-care (01) ==
LOC: HO.HMCC 10:06
PROVIDERS: PCP Internal Medicine; Visit Provider Internal Medicine
DX: I10 Essential (primary) hypertension (principal); E11.9 Type 2 diabetes mellitus without complications; E78.5 Hyperlipidemia, unspecified

== ENCOUNTER → 2025-02-13 10:05 | Outpatient (BNVA) | payer OTHER, SELFPAY | PROVIDERS: PCP Internal Medicine; Visit Provider Internal Medicine | DX: I10 Essential (primary) hypertension (principal); E11.9 Type 2 diabetes mellitus without complications; E78.5 Hyperlipidemia, unspecified; Z79.4 Long term (current) use of insulin; Z79.84 Long term (current) use of oral hypoglycemic drugs; Z79.899 Other long term (current) drug therapy | CPT/HCPCS: 99212 ==

== ENCOUNTER 2025-03-27 11:44 | Outpatient (AMB) | payer OTHER, SELFPAY ==
[2025-03-27 11:57] VITALS: BP 142/78; PULSE 60; RESP 16; O2SAT 96; BMI 32.1
--- NOTE | 2025-03-27 11:57 | MHC.PC.OV ---
Vital Signs 03/27/25 11:57 03/27/25 15:49 Height 5 ft 7 in Weight 205 lb BMI 32.1 BP 142/78 H 120/78 Blood Pressure Location Lt brachial Rt brachial Position Sitting Sitting Respiration 16 Pulse 60 Pulse Source Pulse Oximeter Pulse Oximetry (%) 96 Oxygen Delivery Method Room Air Intake Visit Reasons: 1m f/u Intake Note: Pt is here today for 1 month follow up visit. Workers Compensation Paralegal Required: No Accompanied by: Self / Same As Patient Allergies oxycodone (Percocet) Allergy (Intermediate, Verified 03/27/25 12:21) hives tramadol Allergy (Intermediate, Verified 03/27/25 12:21) hives Medication List - Last Reconciled 03/27/25 by Bridgette Coburn MD amlodipine 10 mg PO DAILY aspirin 325 mg PO DAILY atorvastatin 80 mg PO BEDTIME blood pressure test kit-large As directed blood sugar diagnostic (FreeStyle Lite Strips) As directed blood-glucose meter (FreeStyle Lite Meter kit) As directed docusate sodium 100 mg PO DAILY FreeStyle Minal 3 Plus Sensor (blood-glucose sensor) Test blood sugar 4 times a day, change sensor every 15 days NS insulin glargine (Lantus Solostar U-100 Insulin) 30 units (0.3 mL) subcut QAM insulin lispro (Humalog KwikPen (U-100) Insulin) 5 units (0.05 mL) subcut TID lancets As directed lisinopril-hydrochlorothiazide 20-12.5 mg 2 tabs PO DAILY metformin 500 mg PO DAILY pen needle, diabetic As directed to inject insulin 4 times per day Tobacco use date assessed: 03/27/25 Dental Screening Dental Screen Date: 03/27/25 Did you have a dental visit in the last 12 months?: Yes Did you have a dental problem in the last 6 months where you did not have access to dental care?: No Was dental information given to patient?: Patient has dentist HPI 1m f/u HPI Details Patient presents for the follow-up of insulin-dependent diabetes hypertension and hyperlipidemia. He reports fasting blood glucose readings between 120-160. He has been following ADA diet. [facility] Medical History Nicotine dependence Cerebrovascular accident (CVA) of right thalamus Diabetes type 2, controlled Microscopic hematuria Annual physical exam DJD (degenerative joint disease) HTN (hypertension) Surgical History History of surgery H/O lumbosacral spine surgery H/O colonoscopy History of dental surgery Family History Father Stroke Diabetes mellitus Mother Diabetes mellitus Overweight History of high blood pressure Brother No problems noted. Brother Cancer Social History Household Members: Family Housing: House Do you presently have visiting nurse or other home services: No Alcohol intake: never Patient Tobacco Use Status: Current everyday Tobacco user Tobacco use type: Cigarette Cigarette Packs Per Day: 0.25 Cigarettes Per Day: 5.0 Years Smoked: long time e-Cigarette/Vaping Use: Currently Using Advance Directives Date on File: 08/18/22 service: No Current occupational status: employed Cognitive needs: No Hearing needs: No Vision needs: Yes Questionnaire Thrive Questionnaire Date Thrive assessed: 07/20/24 I am a: Patient What is your living situation today?: I have a steady place to live Within the past 12 months, did the food you bought not last and you didn't have the money to get more?: Never true Within the past 12 months, did you worry whether your food would run out before you got money to buy more?: Never true Do you have trouble paying for medicines?: No Do you have trouble getting transportation to medical appointments?: No Do you have trouble paying your heating and electricity bill?: Yes Do you have trouble taking care of your child, family member or friend?: No Do you have trouble with day-to-day activities such as bathing, preparing meals, shopping, managing finances, etc.?: No Are you currently unemployed and looking for a job?: No Are you interested in more education?: No Please select the resources that you would like help with: Utilities Currently or been in a relationship where the following occur: No concerns reported THRIVE Score: 1 AUDIT C Alcohol Use Questionnaire (AUDIT-C) 3. How often do you have six or more drinks on one occasion?: Never Total Score: 0 SUNIL-7 AMB Questionnaire SUNIL-7 Date SUNIL - 7 assessed: 03/27/25 Feeling nervous, anxious, or on edge: 0 = Not at all Not being able to stop or control worryin = Not at all Worrying too much about different things: 0 = Not at all Trouble relaxin = Not at all Being so restless that it is hard to sit still: 0 = Not at all Becoming easily annoyed or irritable: 0 = Not at all Feeling afraid as if something awful might happen: 0 = Not at all Total SUNIL-7 score (0-4 normal; 5-9 mild; 10-14 moderate; 15-21 severe): 0 Source: Developed by Drs. Radames Bravo, Lisset Sinclair, Tapan Haile and colleagues, with an educational nancy from [employer]. SUNIL-7 Assessment Billing SUNIL-7 Assessment Tool: SUNIL-7 Assessment 65789 Review of Systems Const All systems reviewed & are unremarkable except as noted in HPI and below Eyes Reports no additional complaints Card Reports no additional complaints Resp Reports no additional complaints GI Reports no additional complaints Reports no additional complaints Physical exam (Primary Care) Vital Signs: Last Vital Signs Pulse 60 03/27/25 11:57 Resp 16 03/27/25 11:57 BP 142/78 H 03/27/25 11:57 Pulse Ox 96 03/27/25 11:57 Oxygen Delivery Method Room Air 03/27/25 11:57 BMI result Body Mass Index 32.1 Tobacco/Smoking Status: Tobacco use Status Tobacco use date assessed 03/27/25 03/27/25 12:22 Patient Tobacco Use Status Current everyday Tobacco 03/27/25 11:57 Tobacco use type Cigarette 03/27/25 11:57 e-Cigarette/Vaping Use Currently Using 03/27/25 11:57 Thrive Assessment: Date of Thrive Assessment Date Thrive assessed 07/20/24 03/27/25 11:57 Currently or been in a relationship where the following occur: No concerns reported Const General: no acute distress HENMT Head: Yes normal to inspection Face and sinus: Yes normal facial exam Resp Effort & Inspection: normal respiratory effort Auscultation: clear to auscultation bilaterally Cardio Rhythm: regular rhythm Heart sounds: S1 normal heart sound present and S2 normal heart sound present GI Inspection: Yes normal to inspection Palpation (GI): Soft to palpation Percussion: Yes normal to percussion Auscultation: normal bowel sounds Results AMB Random Glucose (hemocue) AMB Random Glucose (hemocue) 260 mg/dL Last Edit by VIKTORIA Kong on 03/27/25 12:46 Results Reviewed Results Reviewed: Laboratory Last Values Random Glu (Clinic) 260 mg/dL 03/27/25 12:45 Coding Level of Care Code Est Pt Level 4 (46965) Diagnoses Essential hypertension I10 Hypertension type: essential hypertension Hyperlipidemia E78.5 Diabetes type 2, controlled E11.9 Additional Codes SUNIL-7 Assessment Billing - SUNIL-7 Assessment Tool: SUNIL-7 Assessment 33917 ([id number]) Assessment & Plan Assessment & Plan (1) HTN (hypertension): Code(s): I10 - Essential (primary) hypertension Category: Medical Qualifiers: Hypertension type: essential hypertension Qualified Code(s): I10 - Essential (primary) hypertension Plan: Continue current medications including lisinopril with hydrochlorothiazide and amlodipine (2) Hyperlipidemia: Code(s): E78.5 - Hyperlipidemia, unspecified Category: Medical Plan: Continue statin return for fasting blood work (3) Diabetes type 2, controlled: Code(s): E11.9 - Type 2 diabetes mellitus without complications Category: Medical Plan: ADA diet increase exercise weight loss discussed with the patient, he was advised to increase Lantus to 30 units and start Humalog according to sliding scale before meals. Follow-up in 2 months with a fasting labs Orders: Orders Comprehensive [place]. Panel Fast 2 Months E78.5 - Hyperlipidemia, unspecified, I10 - Essential (primary) hypertension Hemoglobin A1c 2 Months E78.5 - Hyperlipidemia, unspecified, I10 - Essential (primary) hypertension AMB Random Glucose (hemocue) Today Z13.9 - Encounter for screening, unspecified Complete Blood Count Auto Diff 2 Months E78.5 - Hyperlipidemia, unspecified, I10 - Essential (primary) hypertension Lipid Panel 2 Months E78.5 - Hyperlipidemia, unspecified, I10 - Essential (primary) hypertension Microalbumin, Random (w Creat) 2 Months E78.5 - Hyperlipidemia, unspecified, I10 - Essential (primary) hypertension Medications: Refilled FreeStyle Minal 3 Plus Sensor (blood-glucose sensor) Test blood sugar 4 times a day, change sensor every 15 days 6 ea 3RF NS E11.9 - Type 2 diabetes mellitus without complications
--- OUTSIDE RECORDS SUMMARY | 2025-03-27 14:16 | XMS_ITS | Clinical Summary ---
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, unspecified cerebrovascular disease type, unspecified hemiplegia type (CMS/HCC V24, CMS/HCC V28) from Last 3 Months Social History Tobacco Use Types Packs/Day Years Used Date Smoking Tobacco: Never Assessed Sex and Gender Information Value Date Recorded Sex Assigned at Not on file Legal Sex Male 9:36 AM EST Gender Identity Not on file Sexual Orientation Not on file Plan of Treatment Upcoming Encounters Date Type Department Care Team (Late st Contact Info) Description 03/28/2025 12:30 PM EDT Treatment [address] [phone] Stevo De La Torre PTA 04/03/2025 2:15 PM EDT Treatment [address] [phone] Stevo De La Torre, BANQUET PILOT 04/04/2025 10:15 AM EDT Treatment [address] [phone] Radames Chavez, PT 04/11/2025 12:30 PM EDT Treatment [address] [phone] Radames Chavez, PT 04/17/2025 1:15 PM EDT Treatment [address] [phone] Stevo De La Torre, BANQUET PILOT 04/18/2025 2:15 PM EDT Treatment [address] [phone] Stevo De La Torre, BANQUET PILOT 04/24/2025 1:15 PM EDT Treatment [address] [phone] Radames Chavez, PT Health Maintenance Due Date Last Done Comments Diabetes: Annual GFR (Glomer ular Filtration Rate) 1964 Diabetes: Annual Foot Exam 1974 Diabetes: Annual Retina Eye Exam 1974 DTaP,Tdap,and Td Vaccines (1 - Tdap) 1983 Zoster Vaccines (1 of 2) 2014 Cholesterol Screening (Lipid Panel) 05/12/2024 Colorectal Cancer Screening: Colonoscopy 05/12/2024 HIV Screening 05/12/2024 Hepatitis C Screening 05/12/2024 Social Influencers of Health Screening 05/12/2024 Depression Screening 07/19/2024 Diabetes: Annual Urine Albumin-Creatinine Ratio (uACR) 03/07/2025 Diabetes: Blood Sugar Contro l Test (HGBA1C) 03/07/2025 Hypertension/CHF/CAD Annual BMP Blood Test 03/07/2025 COVID-19 Vaccine ( - 2023-2 5 season) 2025 Influenza Vaccine (#1) 2025 RSV Immunization Adult Patie nts (1 - 1-dose 75+ series) 2039 Pneumococcal Vaccine: 50+ Years Completed 5 HIB Vaccines Aged Out No longer eligi [...] on patient's age to complete this topic Goals Goal Patient Goal Type Associated Problems Recent Progress Patient-Stated? Author PT LTGs General No Radames Chavez, PT Note: Pt will complete 6-minute walk with stable VS Pt will complete 1000ft ambulation distance in 6 minutes Pt will increase left hip abduction strength to 4/5 for improved LLE limb stability in Single-limb stance phase with ambulation Pt will be independent with HEP Pt will complete assessment of Left AFO Insurance [facility] [employer] Advance Directives Documents on File Type Date Recorded Patient Tray Checker Expl anation Health Care Decision (hx) 04/24/2024 DAISHA LÓPEZ DIRECTIVE Care Teams Group Home Paraprofessional Relationship Specialty Start Date End Date Scar Kong MD [address] [place] [address] [address] [place] PCP - General Internal Medicine 02/22/25
[2025-03-27 15:49] VITALS: BP 120/78
== END 2025-03-27 15:52 | disposition home or self-care (01) ==
LOC: HO.HMCC 11:45
PROVIDERS: PCP Internal Medicine; Visit Provider Internal Medicine
DX: I10 Essential (primary) hypertension (principal); E78.5 Hyperlipidemia, unspecified; E11.9 Type 2 diabetes mellitus without complications; Z13.9 Encounter for screening, unspecified

== ENCOUNTER → 2025-03-27 11:44 | Outpatient (BNVA) | payer OTHER, SELFPAY | PROVIDERS: PCP Internal Medicine; Visit Provider Internal Medicine | DX: E11.9 Type 2 diabetes mellitus without complications (principal); I10 Essential (primary) hypertension; E78.5 Hyperlipidemia, unspecified; Z79.4 Long term (current) use of insulin | CPT/HCPCS: 82948; 96127; 99212 ==

== ENCOUNTER 2025-06-04 10:58 | Outpatient (AMB) | payer OTHER, SELFPAY ==
--- NOTE | 2025-06-04 11:02 | A.OFFPC_ITS ---
Vital Signs 06/04/25 11:03 Height 5 ft 7 in Weight 205 lb BMI 32.1 BP 134/80 Blood Pressure Location Rt brachial Position Sitting Respiration 16 Pulse 60 Pulse Source Pulse Oximeter Pulse Oximetry (%) 96 Oxygen Delivery Method Room Air Intake Visit Reasons: 2m follow up+repeat A1C needed Intake Note: Pt is here today for 2 months follow up visit on DM. Allergies oxycodone (Percocet) Allergy (Intermediate, Verified 06/04/25 11:10) hives tramadol Allergy (Intermediate, Verified 06/04/25 11:10) hives Medication List - Last Reconciled 06/04/25 by Bridgette Coburn MD amlodipine 10 mg PO DAILY aspirin 325 mg PO DAILY atorvastatin 80 mg PO BEDTIME blood pressure test kit-large As directed blood sugar diagnostic (FreeStyle Lite Strips) As directed blood-glucose meter (FreeStyle Lite Meter kit) As directed docusate sodium 100 mg PO DAILY FreeStyle Minal 3 Plus Sensor (blood-glucose sensor) Test blood sugar 4 times a day, change sensor every 15 days NS insulin glargine (Lantus Solostar U-100 Insulin) 30 units (0.3 mL) subcut QAM insulin lispro (Humalog KwikPen (U-100) Insulin) 5 units (0.05 mL) subcut TID lancets As directed lisinopril-hydrochlorothiazide 20-12.5 mg 2 tabs PO DAILY metformin 500 mg PO DAILY pen needle, diabetic As directed to inject insulin 4 times per day Tobacco use date assessed: 06/04/25 Dental Screening Dental Screen Date: 03/27/25 HPI 2m follow up+repeat A1C needed HPI Details Patient presents for the follow-up of type 2 diabetes hypertension and hyperlipidemia. He refused to take insulin. Patient has been taking metformin monitoring his blood glucose with the readings between 180 to 250 after meals. He denies polyuria polydipsia, PFSH Medical History Nicotine dependence Cerebrovascular accident (CVA) of right thalamus Diabetes type 2, controlled Microscopic hematuria Annual physical exam DJD (degenerative joint disease) HTN (hypertension) Surgical History History of surgery H/O lumbosacral spine surgery H/O colonoscopy History of dental surgery Family History Father Stroke Diabetes mellitus Mother Diabetes mellitus Overweight History of high blood pressure Brother No problems noted. Brother Cancer Social History Household Members: Family Housing: House Do you presently have visiting nurse or other home services: No Alcohol intake: never Patient Tobacco Use Status: Current everyday Tobacco user Tobacco use type: Cigarette Cigarette Packs Per Day: 0.25 Cigarettes Per Day: 5.0 Years Smoked: long time e-Cigarette/Vaping Use: Currently Using Advance Directives Date on File: 08/18/22 service: No Current occupational status: employed Cognitive needs: No Hearing needs: No Vision needs: Yes Questionnaire Thrive Questionnaire Date Thrive assessed: 07/20/24 I am a: Patient What is your living situation today?: I have a steady place to live Within the past 12 months, did the food you bought not last and you didn't have the money to get more?: Never true Within the past 12 months, did you worry whether your food would run out before you got money to buy more?: Never true Do you have trouble paying for medicines?: No Do you have trouble getting transportation to medical appointments?: No Do you have trouble paying your heating and electricity bill?: Yes Do you have trouble taking care of your child, family member or friend?: No Do you have trouble with day-to-day activities such as bathing, preparing meals, shopping, managing finances, etc.?: No Are you currently unemployed and looking for a job?: No Are you interested in more education?: No Please select the resources that you would like help with: Utilities Currently or been in a relationship where the following occur: No concerns reported THRIVE Score: 1 SUNIL-7 AMB Questionnaire SUNIL-7 Date SUNIL - 7 assessed: 03/27/25 Source: Developed by Drs. Radames Bravo, Lisset Sinclair, Tapan Haile and colleagues, with an educational nancy from [employer] Review of Systems Const All systems reviewed & are unremarkable except as noted in HPI and below ENT Reports no additional complaints Card Reports no additional complaints Resp Reports no additional complaints GI Reports no additional complaints Reports no additional complaints Physical exam (Primary Care) Vital Signs: Last Vital Signs Pulse 60 06/04/25 11:03 Resp 16 06/04/25 11:03 BP 134/80 06/04/25 11:03 Pulse Ox 96 06/04/25 11:03 Oxygen Delivery Method Room Air 06/04/25 11:03 BMI result Body Mass Index 32.1 Tobacco/Smoking Status: Tobacco use Status Tobacco use date assessed 06/04/25 06/04/25 11:15 Patient Tobacco Use Status Current everyday Tobacco 06/04/25 11:02 Tobacco use type Cigarette 06/04/25 11:02 e-Cigarette/Vaping Use Currently Using 06/04/25 11:02 Thrive Assessment: Date of Thrive Assessment Date Thrive assessed 07/20/24 06/04/25 11:02 Currently or been in a relationship where the following occur: No concerns reported Const General: no acute distress HENMT Head: Yes normal to inspection Throat: Yes posterior oropharynx normal Neck Neck: Yes supple Resp Effort & Inspection: normal respiratory effort Auscultation: clear to auscultation bilaterally Cardio Rhythm: regular rhythm Heart sounds: S1 normal heart sound present and S2 normal heart sound present Results AMB Hemoglobin A1c AMB Hemoglobin A1c 8.2 % Last Edit by VIKTORIA Kong on 06/04/25 11:2 2 Results Reviewed Results Reviewed: Laboratory Last Values Hgb A1c (Clinic) 8.2 % (4.0-6.0) H 06/04/25 11:15 Coding Level of Care Code Est Pt Level 4 (56299) Diagnoses Hyperlipidemia E78.5 Essential hypertension I10 Hypertension type: essential hypertension Diabetes type 2, controlled E11.9 Assessment & Plan Assessment & Plan (1) Hyperlipidemia: Code(s): E78.5 - Hyperlipidemia, unspecified Category: Medical Plan: Continue statin (2) HTN (hypertension): Code(s): I10 - Essential (primary) hypertension Category: Medical Qualifiers: Hypertension type: essential hypertension Qualified Code(s): I10 - Essential (primary) hypertension Plan: Continue current medications (3) Diabetes type 2, controlled: Comment: Patient refused to take insulin 05/2025 Code(s): E11.9 - Type 2 diabetes mellitus without complications Category: Medical Plan: A1c is 8.2, ADA diet increase exercise weight loss discussed with the patient. He was advised to increase metformin to 500 mg twice a day and add Farxiga, patient had fasting blood work today. He will follow-up in 1 month with a blood glucose readings Orders: Orders Comprehensive [place]. Panel Fast Today E11.9 - Type 2 diabetes mellitus without complications, E78.5 - Hyperlipidemia, unspecified, I10 - Essential (primary) hypertension Complete Blood Count Auto Diff Today E11.9 - Type 2 diabetes mellitus without complications, E78.5 - Hyperlipidemia, unspecified, I10 - Essential (primary) hypertension AMB Hemoglobin A1c Today Z13.9 - Encounter for screening, unspecified Lipid Panel Today E11.9 - Type 2 diabetes mellitus without complications, E78.5 - Hyperlipidemia, unspecified, I10 - Essential (primary) hypertension Microalbumin, Random (w Creat) Today E11.9 - Type 2 diabetes mellitus without complications, E78.5 - Hyperlipidemia, unspecified, I10 - Essential (primary) hypertension Medications: New dapagliflozin propanediol (Farxiga) 5 mg PO DAILY 90 tabs 0RF Changed From metformin 500 mg PO DAILY 90 tabs 3RF To metformin 500 mg PO BID 180 tabs 3RF Refilled metformin 500 mg PO DAILY 90 tabs 3RF
[2025-06-04 11:03] VITALS: BP 134/80; PULSE 60; RESP 16; O2SAT 96; BMI 32.1
== END 2025-06-04 15:20 | disposition home or self-care (01) ==
LOC: HO.HMCC 10:59
PROVIDERS: PCP Internal Medicine; Visit Provider Internal Medicine
DX: E78.5 Hyperlipidemia, unspecified (principal); I10 Essential (primary) hypertension; E11.9 Type 2 diabetes mellitus without complications; Z13.9 Encounter for screening, unspecified

== ENCOUNTER → 2025-06-04 10:58 | Outpatient (BNVA) | payer OTHER, SELFPAY | PROVIDERS: PCP Internal Medicine; Visit Provider Internal Medicine | DX: E11.9 Type 2 diabetes mellitus without complications (principal); I10 Essential (primary) hypertension; E78.00 Pure hypercholesterolemia, unspecified; Z79.84 Long term (current) use of oral hypoglycemic drugs | CPT/HCPCS: 83036; 99212 ==

== ENCOUNTER 2025-06-07 09:40 | Outpatient (REF) | payer OTHER, SELFPAY ==
[2025-06-07 12:58] LABS: MANUAL DIFF FLAG NO
[2025-06-07 13:14] LABS: Hematocrit 42.9 % (42.0-52.0); Hemoglobin 14.2 g/dl (14.0-18.0); Imm Gran Abs Auto 0.04 X10*3/uL (0.00-0.03); Imm Gran Pct Auto 0.4 % (0.0-0.4); Lymphocytes Absolute Auto 2.1 X10*3/uL (1.2-4.9); Mean Corpuscular HGB Conc 33.1 g/dl (31.0-36.0); Mean Corpuscular Hemoglobin 26.5 pg (27.0-33.0); Mean Corpuscular Volume 80.0 fL (80.0-98.0); NRBC Abs Auto 0.000 X10*3/uL (0.0-0.012); NRBC Pct Auto 0.0 /100WBC (0.0-0.2); Platelet Count 312 X10*3/uL (160-400); Red Blood Count 5.36 X10*6/uL (4.60-5.80); White Blood Count 10.4 X10*3/uL (4.8-10.8)
--- OUTSIDE RECORDS SUMMARY | 2025-06-07 13:39 | XMS_ITS | Clinical Summary ---
Author Organization [address] [place] [address] Address [address] [place] [address] Phone Care Team Providers Care Portal Developer Name Role Phone Scar Kong MD Primary Care Provider [phone] Encounters Date Type Department Care Team Description 04/11/2025 12:30 PM EDT Treatment [address] [phone] Stevo De La Torre, CASINO CHANGE ATTENDANT Cerebral infarction, unspecified mechanism (CMS/HCC V24, CMS/HCC V28) (Primary Dx) 03/28/2025 12:30 PM EDT Treatment [address] [phone] Stevo De La Torre, CASINO CHANGE ATTENDANT Cerebral infarction, unspecified mechanism (CMS/HCC V24, CMS/HCC V28) (Primary Dx); Hemiplegia affecting left nondominant side, unspecified etiology, unspecified hemiplegia type (CMS/HCC V24, CMS/HCC V28) 03/07/2025 5:00 PM EDT Evaluation [address] [phone] Radames Chavez, PT Cerebral infarction, unspecified mechanism (CMS/HCC V24, CMS/HCC V28) (Primary Dx); Cerebral infarction, unspecified (CMS/HCC V24, CMS/HCC V28); Hemiplegia, unspecified affecting left nondominant side (CMS/HCC V24, CMS/HCC V28); Hemiplegia of left 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, unspecified cerebrovascular disease type, unspecified hemiplegia type ([facility] V24, CMS/HCC V28) from Last 3 Months Social History Tobacco Use Types Packs/Day Years Used Date Smoking Tobacco: Never Assessed Sex and Gender Information Value Date Recorded Sex Assigned at Not on file Legal Sex Male 9:36 AM EST Gender Identity Not on file Sexual Orientation Not on file Plan of Treatment Health Maintenance Due Date Last Done Comments Colorectal Cancer Screening: Colonoscopy 1964 Diabetes: Annual GFR (Glomer ular Filtration Rate) 1964 Diabetes: Annual Foot Exam 1974 Diabetes: Annual Retina Eye Exam 1974 DTaP,Tdap,and Td Vaccines (1 - Tdap) 1983 Zoster Vaccines (1 of 2) 2014 Cholesterol Screening (Lipid Panel) 05/12/2024 HIV Screening 05/12/2024 Hepatitis C Screening 05/12/2024 Social Influencers of Health Screening 05/12/2024 Depression Screening 07/19/2024 Diabetes: Annual Urine Albumin-Creatinine Ratio (uACR) 03/07/2025 Diabetes: Blood Sugar Contro l Test (HGBA1C) 03/07/2025 Hypertension/CHF/CAD Annual BMP Blood Test 03/07/2025 COVID-19 Vaccine ( - 2024-2 6 season) 2025 Influenza Vaccine (#1) 2025 RSV Immunization Adult Patie nts (1 - 1-dose 75+ series) 2039 Pneumococcal Vaccine: 50+ Years Completed HIB Vaccines Aged Out No longer eligi [...] this topic RSV Immunization Patients Un valentino months Aged Out No longer eligible b [...] will complete assessment of Left AFO Insurance [employer] Advance Directives Documents on File Type Date Recorded Patient Catering Server Expl anation Health Care Decision (hx) 04/24/2024 AD RENE DIRECTIVE Care Teams Portal Developer Relationship Specialty Start Date End Date Scar Kong MD [address] [place] [address] Dr [address] [place], [place] PCP - General Internal Medicine 02/22/25
[2025-06-07 13:57] LABS: Alanine Aminotransferase 20 U/L (0-40); Albumin Level 4.5 g/dL (3.5-5.0); Alkaline Phosphatase 83 U/L (39-117); Anion Gap 9 (12-20); Aspartate Amino Transferase 34 U/L (5-37); Blood Urea Nitrogen 15 mg/dL (9-16); Calcium 9.2 mg/dL (8.4-10.2); Carbon Dioxide 30 mmol/L (22-29); Chloride 104 mmol/L (96-108); Cholesterol 184 mg/dL (<200); Estimated Glomerular Filt Rate > 60; HDL Cholesterol 30 mg/dL (>40); Potassium 3.3 mmol/L (3.3-5.1); Sodium 140 mmol/L (135-145); Total Protein 7.1 g/dL (6.5-8.0); Triglycerides 260 mg/dL (<150)
== END 2025-06-07 09:41 | disposition home or self-care (01) ==
LOC: HO.HMGCLDS 09:40
PROVIDERS: PCP Internal Medicine; Visit Provider Internal Medicine
DX: I10 Essential (primary) hypertension (principal); E11.9 Type 2 diabetes mellitus without complications; E78.5 Hyperlipidemia, unspecified
CPT/HCPCS: 36415; 80053; 80061; 83036; 85025